=== PATIENT | female | born 1940 | race Hispanic/Latino ===

== ENCOUNTER 2017-04-19 08:45 | Inpatient (IN) | payer MEDICARE ==
[2017-04-19 08:47] VITALS: BMI 21.4
[2017-04-19] MEDS ORDERED: Sodium Chloride 0.9% 1,000 ML IV STA (09:10)
[2017-04-19] MEDS ORDERED: Aspirin 325 mg EC Tablets PO STA (09:11)
--- NOTE | 2017-04-19 09:16 | ED PDOC ---
Arrival/HPI - General Chief Complaint: Shortness Of Breath Time Seen by Provider: 04/19/17 09:02 Historian: Patient - History of Present Illness Narrative History of Present Illness (Text): 04/19/17 09:13 77 y/o female, pmh including htn/mild LVH and mild Mitral regurgitation (echo), allergic to codeine and sulfa medication, c/o shortness of breath x 1 week. Pt. been having shortness of breath and difficulty catching breath started this week, seen by the PMD Dr. Baker today and refer to the ER for evaluation, no chest pain, no numbness or tingling, no palpitation, no change in vision, no other medical or psychological complaints. Past Medical History - Provider Review Nursing Documentation Reviewed: Yes - Infectious Disease Hx of Infectious Diseases: None - Cardiac Hx Hypertension: Yes - Psychiatric Hx Substance Use: No - Anesthesia Hx Anesthesia Reactions: No Hx Malignant Hyperthermia: No Family/Social History - Physician Review Nursing Documentation Reviewed: Yes Family/Social History: Unknown Family HX Smoking Status: Former Smoker Hx Alcohol Use: Yes Frequency of alcohol use: Socially Hx Substance Use: No Allergies/Home Meds Allergies/Adverse Reactions: Allergies codeine Allergy (Verified 04/19/17 08:52) RASH Sulfa (Sulfonamide Antibiotics) Allergy (Verified 04/19/17 08:52) RASH Home Medications: Home Meds Medication Instructions Recorded Confirmed Aspirin [Aspirin Chewable] 81 mg PO DAILY 04/19/17 04/19/17 Losartan [Cozaar] 50 mg PO DAILY 04/19/17 04/19/17 diltiaZEM CD [Cardizem CD] 240 mg PO DAILY 04/19/17 04/19/17 Review of Systems - Review of Systems Constitutional: absent: Fatigue, Fevers Eyes: absent: Vision Changes ENT: absent: Hearing Changes Respiratory: SOB. absent: Cough, Sputum, Wheezing Cardiovascular: absent: Chest Pain, Palpitations Gastrointestinal: absent: Abdominal Pain, Nausea, Vomiting Musculoskeletal: absent: Arthralgias, Back Pain, Neck Pain Skin: absent: Rash, Pruritis, Skin Lesions, Laceration Neurological: absent: Headache, Dizziness, Focal Weakness Physical Exam Vital Signs Temp Pulse Pulse Resp BP Pulse Ox 04/19/17 13:25 97.5 F L 92 H 92 H 16 125/84 04/19/17 12:00 100 H 17 152/80 H 96 04/19/17 10:02 92 H 16 125/84 96 04/19/17 09:25 156 H 126/93 H 04/19/17 09:00 18 04/19/17 08:46 97.5 F L 143 H 20 126/93 H 95 Temperature: Afebrile Blood Pressure: Hypertensive Pulse: Tachycardic Respiratory Rate: Normal Appearance: Positive for: Well-Appearing, Non-Toxic Pain Distress: None Mental Status: Positive for: Alert and Oriented X 3 - Systems Exam Head: Present: Atraumatic, Normocephalic Pupils: Present: PERRL Extroacular Muscles: Present: EOMI Conjunctiva: Present: Normal Mouth: Present: Moist Mucous Membranes Neck: Present: Normal Range of Motion Respiratory/Chest: Present: Clear to Auscultation, Good Air Exchange. No: Respiratory Distress, Accessory Muscle Use Cardiovascular: Present: Normal S1, S2, Irregular Rhythm, Tachycardic, Other ( no pedal edema). No: Murmurs, Rub Abdomen: Present: Normal Bowel Sounds. No: Tenderness, Distention, Peritoneal Signs, Rebound, Guarding Back: Present: Normal Inspection Upper Extremity: Present: Normal Inspection. No: Cyanosis, Edema Lower Extremity: Present: Normal Inspection. No: Edema Neurological: Present: GCS=15, CN II-XII Intact, Speech Normal Skin: Present: Warm, Dry, Normal Color. No: Rashes Psychiatric: Present: Alert, Oriented x 3, Normal Insight, Normal Concentration Medical Decision Making ED Course and Treatment: 04/19/17 09:18 -labs/troponin -ekg/chest x-ray -IVF/cardizem/aspirin 325mg -cardiac rehabilitation specialist -will admit the patient to telemetry due to the new on set of a.fibb 04/19/17 10:47 -Initial EKG:Atrial Fibrillation @ 146 BPM, non-specific T wave changes on lead lateral leads, no ST elevation or depression, no previous ekg available for comparison. -2nd EKG: Atrial Fibrillation @ 93 BPM, non-specific T wave changes on lead lateral leads, no ST elevation or depression, -Chest x-ray show no active disease except vascular congestion with right greater than left. -Labs are non-significant with negative troponin but BNP 1510, IVF stopped, clinically there is no pedal edema, can be due to heart strain vs. early CHF? -PT/INR show no acute significant findings. Lovenox 1mg/kg 55mg SC ordered. -I discussed with the patient that she will need admission to the tele floor, discussed with Dr. Morse and he agreed that the patient needs admission to tele. 04/19/17 10:48 -UA pending -I discussed with the hospitalist Dr. Curry, discussed about the case/ treatment and admission to tele, she agreed to accept the patient and follow up the care. -Dr. Morse will put in the admission. - Critical Care Critical Care Minutes: 30 minutes Critical Care Time: Unstable Narrative Critical Care (Text): 04/19/17 09:19 Pt. come in with atrial fibrillation, shortness of breath. Pt. immediately obtain ekg/labs/IVF/cardizem, cardiac rehabilitation specialist continuously including observing the BP, calling hospitalist for admission to the telemetry, aspirin. - Lab Interpretations Lab Results: 04/19/17 09:27 04/19/17 09:50 Lab Results 04/19/17 09:50: Sodium 137, Potassium 3.9, Chloride 106, Carbon Dioxide 23, Anion Gap 12, BUN 13, Creatinine 0.7, Est GFR ( Amer) > 60, Est GFR (Non- Af Amer) > 60, Random Glucose 96, Calcium 9.1, Magnesium 2.1, Total Bilirubin 0.6, AST 23, ALT 41, Alkaline Phosphatase 76, Lactate Dehydrogenase 456, Total Creatine Kinase 30 L, Troponin I < 0.01, NT-Pro-B Natriuret Pep 1510 H, Total Protein 6.7, Albumin 3.9, Globulin 2.8, Albumin/Globulin Ratio 1.4, Triglycerides 117, Cholesterol 181, LDL Cholesterol Direct 76, HDL Cholesterol 89 H 04/19/17 09:27: WBC 6.5, RBC 4.05, Hgb 13.9, Hct 40.0, MCV 98.8, MCH 34.3, MCHC 34.8, RDW 15.6 H, Plt Count 322, MPV 12.3 H, Gran % 49.6 L, Lymph % (Auto) 38.6 H, Greene % (Auto) 8.2 H, Eos % (Auto) 2.8, Baso % (Auto) 0.8, Gran # 3.21, Lymph # 2.5, Greene # 0.5, Eos # 0.2, Baso # 0.05 I have reviewed the lab results: Yes Interpretation: Abnormal lab values (BNP 1510) - RAD Interpretation Radiology Orders: 04/19/17 09:10 CHEST PORTABLE [RAD] Stat vascular congestion with right greater than left. Die Maintenance: Radiologist - EKG Interpretation EKG Interpretation (Text): 04/19/17 09:19 Atrial Fibrillation @ 146 BPM, non-specific T wave changes on lead lateral leads , no ST elevation or depression, no previous ekg available for comparison. Interpreted by ED Physician: Yes Type: 12 lead EKG Comparison: No previous EKG avail. - Medication Orders Current Medication Orders: Aspirin (Aspirin Chewable) 81 mg PO DAILY [facility] Diltiazem HCl (Cardizem Cd) 240 mg PO DAILY [facility] Losartan Potassium (Cozaar) 50 mg PO DAILY [facility] Pantoprazole Sodium (Protonix Inj) 40 mg IVP DAILY [facility] Last Admin: 04/19/17 12:05 Dose: 40 mg Discontinued Medications Aspirin (Ecotrin) 325 mg PO STAT STA Stop: 04/19/17 09:12 Last Admin: 04/19/17 09:25 Dose: 325 mg Diltiazem HCl (Cardizem) 20 mg IVP STAT STA Stop: 04/19/17 09:11 Last Admin: 04/19/17 09:25 Dose: 20 mg Enoxaparin Sodium (Lovenox) 55 mg SC STAT STA PRN Reason: Protocol Stop: 04/19/17 10:26 Last Admin: 04/19/17 10:53 Dose: Enoxaparin Sodium (Lovenox) 55 mg SC STAT STA Stop: 04/19/17 10:30 Last Admin: 04/19/17 10:51 Dose: 55 mg Sodium Chloride (Sodium Chloride 0.9%) 1,000 mls @ 125 mls/hr IV .Q8H STA Stop: 04/19/17 17:09 Last Admin: 04/19/17 09:42 Dose: 125 mls/hr Pneumococcal Polyvalent Vaccine (Pneumovax 23 Vaccine) 0.5 ml IM .ONCE ONE Stop: 04/19/17 13:43 - PA / MACHINE STAKER / Resident Statement MD/DO has reviewed & agrees with the documentation as recorded. Disposition/Present on Arrival - Present on Arrival Any Indicators Present on Arrival: No History of DVT/PE: No History of Uncontrolled Diabetes: No Urinary Catheter: No History of Decub. Ulcer: No History Surgical Site Infection Following: None - Disposition Have Diagnosis and Disposition been Completed?: Yes Diagnosis: Atrial fibrillation, Elevated brain natriuretic peptide (BNP) level Disposition: HOSPITALIZED Disposition Time: 09:20 Patient Plan: Admission, Telemetry Patient Problems: Current Active Problems Problem Status Onset Atrial fibrillation Acute Elevated brain natriuretic peptide (BNP) level Acute Condition: STABLE
[2017-04-19 09:29] LABS: ADD MANUAL DIFF? NO
[2017-04-19 09:32] LABS: BASO # 0.05 K/mm3 (0.0-2.0); BASO % 0.8 % (0.0-3.0); EOS # 0.2 (0.0-0.7); EOS % 2.8 % (1.5-5.0); GRAN # 3.21 (1.4-6.5); GRAN % 49.6 % (50.0-68.0); LYMPH # 2.5 (1.2-3.4); LYMPH % 38.6 % (22.0-35.0); MEAN CELL VOLUME 98.8 fL (80.0-105.0); MEAN CORPUSCULAR HEMOGLOBIN 34.3 pg (25.0-35.0); MEAN CORPUSCULAR HGB CONC 34.8 g/dl (31.0-37.0); MEAN PLATELET VOLUME 12.3 fl (7.0-11.0); MONO # 0.5 (0.1-0.6); MONO % 8.2 % (1.0-6.0); PLATELET COUNT 322 10^3/uL (120.0-450.0); RED CELL DISTRIBUTION WIDTH 15.6 % (11.5-14.5); WHITE BLOOD COUNT 6.5 10^3/ul (4.5-11.0)
--- NOTE | 2017-04-19 09:47 | RAD ---
HISTORY: medical clearance COMPARISON: No prior. FINDINGS: LUNGS: No active pulmonary disease. PLEURA: No significant pleural effusion identified, no pneumothorax apparent. CARDIOVASCULAR: Mild vascular congestion and interstitial congestion right greater than left OSSEOUS STRUCTURES: No significant abnormalities. VISUALIZED UPPER ABDOMEN: Normal. OTHER FINDINGS: None. IMPRESSION: Mild vascular and interstitial congestion right greater than left
[2017-04-19] MEDS ORDERED: diltiaZEM IVPB 100mg in NS 100 ML IV PRN (09:57)
[2017-04-19] MEDS ORDERED: Enoxaparin 40 mg Syringe SC STA (10:25)
[2017-04-19 10:26] LABS: ALB/GLOB RATIO 1.4 (1.1-1.8); ALKALINE PHOSPHATASE 76 U/L (38-133); ALT/SGPT 41 U/L (7-56); AST/SGOT 23 U/L (15-39); BILIRUBIN,TOTAL 0.6 mg/dL (0.2-1.3); BLOOD UREA NITROGEN 13 mg/dL (7-21); CALCIUM 9.1 mg/dL (8.4-10.5); CARBON DIOXIDE 23 mmol/L (21-33); CHLORIDE 106 mmol/L (98-107); GFR AFRICAN-AMERICAN > 60; GLUCOSE,RANDOM 96 mg/dL (70-110); MAGNESIUM 2.1 mg/dL (1.7-2.2); POTASSIUM 3.9 mmol/L (3.6-5.0); SODIUM 137 mmol/L (132-148); TOTAL PROTEIN 6.7 g/dL (5.8-8.3)
[2017-04-19] MEDS ORDERED: Enoxaparin 60 mg Syringe SC STA (10:29)
[2017-04-19 10:38] LABS: TROPONIN I < 0.01 ng/mL
[2017-04-19 11:16] LABS: INR 1.06 (0.93-1.08); PARTIAL THROMBOPLASTIN TIME 24.5 Seconds (23.7-30.8)
[2017-04-19 11:57] LABS: CHOLESTEROL 181 mg/dL (130-200)
--- NOTE | 2017-04-19 12:49 | CP.PCM.HP ---
<Vipul Luong - Last Filed: 04/19/17 12:45> History of Present Illness - History of Present Illness History of Present Illness: This is a 77 yo female with past medical hx of PAD, HTN, HLD, PNA presenting with sob x 1 week. She cannot recall what she was doing when it started or if it came on suddenly or gradually. She has never had problems with sob before. She does mainly have sob with exertion and can only walk 1/2 block before sob. She does also have some orthopnea and will wake up in the morning with trouble breathing. She went to see Dr. Burns this morning who did an EKG and saw she was in rapid a fib at 150 and she was sent to this ER. She denies chest pain , vomiting, diarrhea, dysuria, hematuria, bloody BMs. PMH: HTN, HLD, PAD, pneumonia, uterine prolapse PSH: oopherectomy Allergies: codeine, sulfa Current meds: asa, cardizem, losartan FH: Lung cancer in family Social hx: Former smoker. Social drinker. No drug use. Born in . Lives alone in [place]. Does not use cane or walker. Present on Admission - Present on Admission Any Indicators Present on Admission: No History of DVT/PE: No History of Uncontrolled Diabetes: No Urinary Catheter: No Decubitus Ulcer Present: No Review of Systems - Review of Systems All systems: reviewed and no additional remarkable complaints except Review of Systems: Negative except per HPI. Past Patient History - Infectious Disease Hx of Infectious Diseases: None - Tetanus Immunizations Tetanus Immunization: Unknown - Past Medical History & Family History Past Medical History?: Yes Past Family History: Reviewed and not pertinent - Past Social History Smoking Status: Former Smoker Chewing Tobacco Use: No Cigar Use: No Alcohol: Social Drugs: Denies Home Situation {Lives}: Alone Domestic Violence: Negative - CARDIAC Hx Hypertension: Yes - PSYCHIATRIC Hx Substance Use: No - ANESTHESIA Hx Anesthesia Reactions: No Hx Malignant Hyperthermia: No Meds Allergies/Adverse Reactions: Allergies Allergy/AdvReac Type Severity Reaction Status Date / Time codeine Allergy RASH Verified 04/19/17 08:52 Sulfa (Sulfonamide Allergy RASH Verified 04/19/17 08:52 Antibiotics) Physical Exam - Constitutional Appears: Non-toxic, No Acute Distress - Head Exam Head Exam: ATRAUMATIC, NORMAL INSPECTION, NORMOCEPHALIC - Eye Exam Eye Exam: EOMI - ENT Exam ENT Exam: Mucous Membranes Moist - Neck Exam Neck exam: Positive for: Full Rom, Normal Inspection - Respiratory Exam Respiratory Exam: NORMAL BREATHING PATTERN. absent: Respiratory Distress - Cardiovascular Exam Cardiovascular Exam: Tachycardia, +S1, +S2 - GI/Abdominal Exam GI & Abdominal Exam: Normal Bowel Sounds, Soft. absent: Tenderness - Extremities Exam Extremities exam: Positive for: full ROM, normal inspection - Neurological Exam Neurological exam: Alert, CN II-XII Intact, Oriented x3 - Psychiatric Exam Psychiatric exam: Normal Affect, Normal Mood - Skin Skin Exam: Dry, Intact, Normal Color, Warm Results - Vital Signs Recent Vital Signs: Last Vital Signs Temp 97.5 F L 04/19/17 08:46 Pulse 100 H 04/19/17 12:00 Resp 17 04/19/17 12:00 BP 152/80 H 04/19/17 12:00 Pulse Ox 96 04/19/17 12:00 - Labs Result Diagrams: 04/19/17 09:27 04/19/17 09:50 Labs: Laboratory Results - last 24 hr 04/19/17 10:53 PT 11.4 INR 1.06 APTT 24.5 Assessment & Plan - Assessment and Plan (Free Text) Assessment: This is a 77 yo female with past medical hx of HTN, HLD, PAD, PNA presenting with sob x 1 week and found to be in rapid a fib 1. A fib -EKG initially showed rapid a fib -cardizem, asa, lovenox given in er -repeat ekg shows a fib rate controlled, rate in 90s -TSH -echo -trop neg x 1 , will trend -cardio consult. Dr. Carroll. recs appreciated. -f/u am labs -will most sepideh need anticoagulatio, defer to cardio at this time -continue cardizem daily -continue asa daily -CXR shows some vasc congestion -strict I/O -daily wt 2. Hx of HTN -continue losartan daily -continue cardizem daily 3. hx of HLD -lipid panel -HGB a 1 c 4. GI/DVT ppx -scds -protonix discussed with Dr. Villanueva <Eugene Villanueva - Last Filed: 04/19/17 17:00> Results - Vital Signs Recent Vital Signs: Last Vital Signs Temp 97.5 F L 04/19/17 13:25 Pulse 148 H 04/19/17 16:28 Resp 17 04/19/17 14:00 BP 140/88 04/19/17 16:28 Pulse Ox 98 04/19/17 14:00 - Labs Result Diagrams: 04/19/17 09:27 04/19/17 09:50 Labs: Laboratory Results - last 24 hr 04/19/17 10:53 PT 11.4 INR 1.06 APTT 24.5 Attending/Attestation - Attestation I have personally seen and examined this patient.: Yes I have fully participated in the care of the patient.: Yes I have reviewed all pertinent clinical information: Yes Notes (Text): 04/19/17 16:55 attending note; Patient seen and examined with the resident. This is a 77 year old female with the past medical history of PAD, HTN, HLD, PNA presenting with sob x 1 week. Patient was found to be in rapid A. fib in the ER. Heart rate controlled with IV Cardizem 1 dose. Continue by mouth Cardizem, Cozaar and aspirin. Started on Lovenox treatment dose. Patient needs long-term anticoagulation. chest x-ray showed mild vascular congestion. BNP is elevated. Lasix ordered. Patient wants to discuss with cardiology Dr. Mosley before adding or adjusting medications. Admit the patient to telemetry. Cardiac diet/monitor heart rate. echo requested. Upon discharge the patient will follow-up with PMD Dr. burns. 04/19/17 16:59
[2017-04-19] MEDS ORDERED: Pneumococcal 23-Valent Vaccine IM ONE (13:42)
[2017-04-19] MEDS: diltiaZEM IVPB 100mg in NS 100 ML IV PRN (16:28)
[2017-04-19] MEDS ORDERED: Enoxaparin 60 mg Syringe SC SCH (18:00)
[2017-04-19 18:40] LABS: PH,URINE 5.5 (4.7-8.0); URINE BILIRUBIN NEGATIVE (NEGATIVE); URINE BLOOD SMALL (NEGATIVE); URINE GLUCOSE (UA) NEGATIVE (NEGATIVE); URINE KETONE NEGATIVE (NEGATIVE); URINE LEUKOCYTE ESTERASE SMALL Leu/uL (NEGATIVE); URINE PROTEIN NEGATIVE mg/dL (<30 mg/dL); URINE UROBILINOGEN 0.2 E.U./dL (<1 E.U./dL)
[2017-04-19 18:47] LABS: URINE APPEARANCE SL CLOUDY (CLEAR); URINE COLOR YELLOW (YELLOW)
[2017-04-19 18:49] LABS: URINE BACTERIA MOD (NEG)
[2017-04-19] MEDS ORDERED: DiphenhydrAMINE 50 mg/ml Inj IVP STA (22:17)
[2017-04-20] MEDS: diltiaZEM IVPB 100mg in NS 100 ML IV PRN ×3 (00:51→20:58)
[2017-04-20 07:49] LABS: ADD MANUAL DIFF? NO
[2017-04-20 08:01] LABS: BASO # 0.05 K/mm3 (0.0-2.0); BASO % 0.9 % (0.0-3.0); EOS # 0.2 (0.0-0.7); EOS % 3.3 % (1.5-5.0); GRAN # 2.48 (1.4-6.5); GRAN % 45.9 % (50.0-68.0); HEMATOCRIT 35.8 % (36.0-48.0); LYMPH # 2.3 (1.2-3.4); LYMPH % 41.6 % (22.0-35.0); MEAN CELL VOLUME 100.6 fL (80.0-105.0); MEAN CORPUSCULAR HEMOGLOBIN 32.9 pg (25.0-35.0); MEAN CORPUSCULAR HGB CONC 32.7 g/dl (31.0-37.0); MEAN PLATELET VOLUME 11.2 fl (7.0-11.0); MONO # 0.5 (0.1-0.6); MONO % 8.3 % (1.0-6.0); PLATELET COUNT 244 10^3/uL (120.0-450.0); RED CELL DISTRIBUTION WIDTH 15.5 % (11.5-14.5); WHITE BLOOD COUNT 5.4 10^3/ul (4.5-11.0)
[2017-04-20 08:21] LABS: ALB/GLOB RATIO 1.3 (1.1-1.8); ALKALINE PHOSPHATASE 70 U/L (38-133); ALT/SGPT 42 U/L (7-56); AST/SGOT 31 U/L (15-39); BILIRUBIN,TOTAL 0.3 mg/dL (0.2-1.3); BLOOD UREA NITROGEN 14 mg/dL (7-21); CALCIUM 8.9 mg/dL (8.4-10.5); CARBON DIOXIDE 23 mmol/L (21-33); CHLORIDE 110 mmol/L (95-110); GFR AFRICAN-AMERICAN > 60; GLUCOSE,RANDOM 105 mg/dL (70-110); MAGNESIUM 2.2 mg/dL (1.7-2.2); PHOSPHOROUS 3.7 mg/dL (2.5-4.5); POTASSIUM 4.1 mmol/L (3.6-5.0); SODIUM 141 mmol/L (132-148)
[2017-04-20] MEDS: diltiaZEM 240 mg/24 Hours CD Cap PO SCH (10:49)
--- NOTE | 2017-04-20 12:43 | CP.PCM.PN ---
<Bret Garcia - Last Filed: 04/20/17 12:34> Subjective - Date & Time of Evaluation Date of Evaluation: 04/20/17 Time of Evaluation: 09:40 - Subjective Subjective: IM progress note: Pt seen and examined at bedside. No acute events overnight. Pt c/o chest tightness and wheezing. Denies any radiation of the pain. No palpitations or shortness of breath. Denies any alcazar, dizziness, f/c, abd pain, n/v/d. Objective - Vital Signs/Intake and Output Vital Signs (last 24 hours): Temp Pulse Resp BP Pulse Ox 97.5 F L 78 20 138/99 H 99 04/20/17 12:00 04/20/17 12:00 04/20/17 12:00 04/20/17 12:00 04/19/17 15:30 Intake and Output: 04/20/17 04/20/17 06:59 18:59 Intake Total 100 100 Output Total 400 Balance -300 100 - Medications Medications: Current Medications Apixaban (Eliquis) 5 mg PO BID [facility] PRN Reason: Protocol Last Admin: 04/20/17 10:48 Dose: 5 mg Aspirin (Aspirin Chewable) 81 mg PO DAILY [facility] Last Admin: 04/20/17 10:48 Dose: 81 mg Diltiazem HCl (Cardizem Cd) 240 mg PO DAILY [facility] Last Admin: 04/20/17 10:49 Dose: 240 mg Furosemide (Lasix) 40 mg PO DAILY [facility] Last Admin: 04/20/17 10:48 Dose: 40 mg diltiaZEM IVPB 100mg in NS (Cardizem 100mg In Ns) 100 mls @ 10 mls/hr IV .Q10H PRN; Protocol; 10 MG/HR PRN Reason: TITRATE PER MD ORDER Last Admin: 04/20/17 10:46 Dose: 10 mg/hr, 10 mls/hr Levalbuterol HCl (Xopenex) 0.63 mg IH [id number] [facility] Losartan Potassium (Cozaar) 50 mg PO DAILY [facility] Last Admin: 04/20/17 10:50 Dose: 50 mg Pantoprazole Sodium (Protonix Inj) 40 mg IVP DAILY [facility] Last Admin: 04/20/17 10:50 Dose: 40 mg - Labs Labs: 04/20/17 07:46 04/20/17 07:46 PT 11.4 Seconds (9.9-11.8) 04/19/17 10:53 INR 1.06 (0.93-1.08) 04/19/17 10:53 APTT 24.5 Seconds (23.7-30.8) 04/19/17 10:53 - Constitutional Appears: No Acute Distress - Head Exam Head Exam: ATRAUMATIC, NORMAL INSPECTION, NORMOCEPHALIC - Eye Exam Eye Exam: EOMI, Normal appearance, PERRL Pupil Exam: NORMAL ACCOMODATION, PERRL - ENT Exam ENT Exam: Mucous Membranes Moist, Normal Exam - Neck Exam Neck Exam: Full ROM, Normal Inspection. absent: Lymphadenopathy - Respiratory Exam Respiratory Exam: Clear to Ausculation Bilateral, Wheezes (b/l lung holland ), NORMAL BREATHING PATTERN - Cardiovascular Exam Cardiovascular Exam: REGULAR RHYTHM, RRR, +S1, +S2. absent: Murmur - GI/Abdominal Exam GI & Abdominal Exam: Soft, Normal Bowel Sounds. absent: Distended, Tenderness - Extremities Exam Extremities Exam: Full ROM, Normal Capillary Refill, Normal Inspection. absent : Joint Swelling, Pedal Edema - Back Exam Back Exam: NORMAL INSPECTION - Neurological Exam Neurological Exam: Alert, Awake, Oriented x3 - Psychiatric Exam Psychiatric exam: Normal Affect, Normal Mood - Skin Skin Exam: Dry, Intact, Normal Color, Warm Assessment and Plan - Assessment and Plan (Free Text) Assessment: 77 yo female with past medical hx of HTN, HLD, PAD, PNA presenting with sob x 1 week and found to be in rapid a fib. 1. A fib - Rate currently 110-135 -EKG initially showed rapid a fib -Cont cardizem drip currently at 10mg/hr and Cardizem 240mg PP daily -f/u echo read -trop neg x 3 -cardio consult. Dr. Carroll. recs appreciated. -Anticoagulated with Eliquis 5mg BID -continue asa 81mg daily -CXR shows some vasc congestion -strict I/O -daily weight 2. Hx of HTN -continue losartan daily, cardizem, lasix 40mg PO daily 3. hx of HLD -lipid panel -HGB a 1 c 4. Wheezing - Added Xopenex Q6H ronnie - Cont to monitor 4. GI/DVT ppx -Eiquis and protonix Case and plan was seen, reviewed and discussed in detail with Dr Vazquez. <Thomas Vazquez - Last Filed: 04/20/17 14:14> Objective - Vital Signs/Intake and Output Vital Signs (last 24 hours): Temp Pulse Resp BP Pulse Ox 97.5 F L 78 20 138/99 H 99 04/20/17 12:00 04/20/17 12:00 04/20/17 12:00 04/20/17 12:00 04/19/17 15:30 Intake and Output: 04/20/17 04/20/17 06:59 18:59 Intake Total 100 100 Output Total 400 Balance -300 100 - Medications Medications: Current Medications Apixaban (Eliquis) 5 mg PO BID [facility] PRN Reason: Protocol Last Admin: 04/20/17 10:48 Dose: 5 mg Aspirin (Aspirin Chewable) 81 mg PO DAILY [facility] Last Admin: 04/20/17 10:48 Dose: 81 mg Diltiazem HCl (Cardizem Cd) 240 mg PO DAILY [facility] Last Admin: 04/20/17 10:49 Dose: 240 mg Furosemide (Lasix) 40 mg PO DAILY [facility] Last Admin: 04/20/17 10:48 Dose: 40 mg diltiaZEM IVPB 100mg in NS (Cardizem 100mg In Ns) 100 mls @ 10 mls/hr IV .Q10H PRN; Protocol; 10 MG/HR PRN Reason: TITRATE PER MD ORDER Last Admin: 04/20/17 10:46 Dose: 10 mg/hr, 10 mls/hr Levalbuterol HCl (Xopenex) 0.63 mg IH [id number] [facility] Last Admin: 04/20/17 14:00 Dose: 0.63 mg Losartan Potassium (Cozaar) 50 mg PO DAILY [facility] Last Admin: 04/20/17 10:50 Dose: 50 mg Pantoprazole Sodium (Protonix Inj) 40 mg IVP DAILY [facility] Last Admin: 04/20/17 10:50 Dose: 40 mg - Labs Labs: 04/20/17 07:46 04/20/17 07:46 PT 11.4 Seconds (9.9-11.8) 04/19/17 10:53 INR 1.06 (0.93-1.08) 04/19/17 10:53 APTT 24.5 Seconds (23.7-30.8) 04/19/17 10:53 Attending/Attestation - Attestation I have personally seen and examined this patient.: Yes I have fully participated in the care of the patient.: Yes I have reviewed all pertinent clinical information, including history, physical exam and plan: Yes Notes (Text): 04/20/17 14:11 77 year old female with past medical history of hypertension who presented with complaint of shortness of breath. She was found to have Afib with RVR and started on cardizem drip. She was also started on anticoagulation with eliquis today by cardiology. Echocardiogram reviewed showed preserved EF with diastolic dysfunction. Probnp was elevated and cxr showed some vascular congestion. She is on lasix. Thomas Vazquez MD Hospitalist.
--- NOTE | 2017-04-20 12:49 | CARD ---
APPROVED REPORT EXAM: Two-dimensional and M-mode echocardiogram with Doppler and color Doppler. INDICATION Atrial Fibrillation 2D DIMENSIONS Left Atrium (2D)3.8 (1.6-4.0cm)IVSd1.1 (0.7-1.1cm) Aortic Root (2D)2.7 (2.0-3.7cm)LVDd4.5 (3.9-5.9cm) PWd1.1 (0.7-1.1cm)LVDs2.6 (2.5-4.0cm) FS (%) 43.0 %LVEF (%)74.3 (>50%) M-Mode DIMENSIONS Aortic Cusp Exc.1.10 (1.5-2.0cm) Mitral Valve MV E Mgfabnxv057.0cm/s TDI Lateral E' Peak V7.31cm/sMedial E' Peak V8.58cm/sE/Lateral E'18.5 E/Medial E'15.7 Pulmonary Valve PV Peak Hyutuowa011.0cm/sPV Peak Grad.5mmHg Tricuspid Valve TR Peak [id number] [id number] Peak Gr.27mmHg [id number] LEFT VENTRICLE The left ventricle is normal size. There is mild concentric left ventricular hypertrophy. The left ventricular function is normal. The left ventricular ejection fraction is within the normal range. There is normal LV segmental wall motion. Tissue Doppler imaging reveals moderate left ventricular diastolic dysfunction. RIGHT VENTRICLE The right ventricle is normal size. The right ventricular systolic function is normal. ATRIA The left atrium is borderline dilated. The right atrium size is normal. The interatrial septum is intact with no evidence for an atrial septal defect. AORTIC VALVE The aortic valve is mildly sclerotic. No aortic regurgitation is present. There is no aortic valvular stenosis. MITRAL VALVE The mitral valve is mildly thickened. Mitral regurgitation is moderate. TRICUSPID VALVE The tricuspid valve is normal in structure. There is mild tricuspid regurgitation. PULMONIC VALVE The pulmonary valve is normal in structure. GREAT VESSELS The aortic root is normal in size. The IVC is normal in size and collapses >50% with inspiration. PERICARDIAL EFFUSION There is no pleural effusion. There is no pericardial effusion. <Conclusion> Borderline LA enlargement. Normal LV size and systolic function. Mild concentric LVH. Moderate MR. Mild TR.
[2017-04-20] MEDS: Levalbuterol 0.63 MG/3 ML Inhal Soln UD IH SCH ×2 (14:00→20:20)
--- NOTE | 2017-04-20 14:56 | CON ---
DATE: 04/20/2017 REQUESTING PHYSICIAN: Dr. Villanueva. REASON FOR CONSULTATION: Atrial fibrillation. HISTORY OF PRESENT ILLNESS: This is a 77-year-old woman well known to me with a history of hypertens ion, longstanding tobacco abuse and peripheral arterial disease who was seen by Dr. Davon joy days ago with complaints of exertional dyspnea. She was noted to be in atrial fibrillation with ra pid ventricular response, but refused admission at that time. She eventually came to the Emergency R oom yesterday. She was still in atrial fibrillation with rapid rate and was started on intravenous C ardizem. She denies any chest pain, but continues to have some dyspnea. PAST MEDICAL HISTORY: Notable for the problems mentioned above. She has a history of hyperlipidemia , is very reluctant to take medications. She has undergone prior oophorectomy. She has a history of uterine prolapse and remote pneumonia. MEDICATIONS: At home included losartan, diltiazem and aspirin. ALLERGIES: SHE HAS HAD REACTIONS TO SULFAS AND CODEINE IN THE PAST. FAMILY HISTORY: Both parents are from age-related illness. SOCIAL HISTORY: She is a former smoker and drinks occasionally. She is retired. REVIEW OF SYSTEMS: A 10-point review of systems is otherwise unremarkable, notable mainly for the pr oblems mentioned above. PHYSICAL EXAMINATION: GENERAL: She is an elderly woman who appears comfortable at rest. VITAL SIGNS: Her blood pressure is 130/90 with a pulse of 100-120 in atrial fibrillation, respiratio ns are 16. She is currently afebrile. HEENT: Normocephalic, atraumatic. NECK: Supple, no JVD noted. CHEST: Bilateral scattered rhonchi. HEART: PMI displaced laterally with an irregularly irregular rhythm. ABDOMEN: Soft, nontender, normoactive bowel sounds. EXTREMITIES: No clubbing, cyanosis or edema. VASCULAR: Diminished pulses in both lower extremities. SKIN: Warm and dry. PSYCHIATRIC: Normal mood and affect. NEUROLOGIC: Alert and oriented x 3. No gross motor or sensory deficits appreciable. DIAGNOSTIC DATA: White count is 5.4, hemoglobin and hematocrit 11.7 and 35.8 with a platelet count o f 244,000. Potassium 4.1, BUN and creatinine are 14 and 0.9. Three sets of cardiac enzymes are norm al. BNP is 1510. Cholesterol is 181 with an HDL of 89, LDL of 76. TSH 4.0. PT, PTT are normal. C hest x-ray reveals a normal cardiac silhouette with increased perihilar markings. Electrocardiogram reveals atrial fibrillation with rapid ventricular response and secondary ST-T changes. IMPRESSION: 1. Recent onset atrial fibrillation likely secondary to hypertensive heart disease and age. Current ly with fair heart rate control despite intravenous diltiazem. 2. History of hypertension. 3. History of peripheral vascular disease. 4. Rest of problems as noted. RECOMMENDATIONS: Oral diltiazem will be resumed and low dose beta blockade added as well. Hopefully , intravenous diltiazem can be discontinued. She is currently on Lovenox and is an appropriate billy date for chronic anticoagulation. She has been extremely reluctant to take a multitude of medication s in the past as she feels that many have caused the side effects for her and she is also reluctant t o undergo testing, has refused stress testing many times over the years. The importance of anticoagu lation to reduce her risk of thromboembolic events and stroke was discussed in detail with her. It w as also advised that she have an echocardiogram performed at the very least, and consider stress test ing as well. Further recommendations will be made based upon her clinical course and response to the above interventions. Thank you for this consultation. Joey Carroll MD cc: [id number] TT: 04/20/2017 14:55:45 Confirmation # [id number] Dictation # [id number] denita
--- NOTE | 2017-04-20 16:10 | CARD ---
APPROVED REPORT EKG Measurement Heart [id number] <Conclusion> Atrial fibrillation with premature ventricular or aberrantly conducted complexes Right axis deviation Pulmonary disease pattern Nonspecific T wave abnormality, probably digitalis effect Prolonged QT Abnormal ECG
--- NOTE | 2017-04-20 16:12 | CARD ---
APPROVED REPORT EKG Measurement Heart [id number] <Conclusion> Atrial fibrillation with rapid ventricular response Low voltage QRS Nonspecific ST and T wave abnormality, probably digitalis effect Abnormal ECG
[2017-04-20] MEDS ORDERED: DiphenhydrAMINE 50 mg/ml Inj IVP STA (22:47)
[2017-04-21] MEDS: Levalbuterol 0.63 MG/3 ML Inhal Soln UD IH SCH ×4 (02:23→19:22)
[2017-04-21] MEDS: diltiaZEM IVPB 100mg in NS 100 ML IV PRN ×2 (06:11→17:50)
[2017-04-21] MEDS: diltiaZEM 240 mg/24 Hours CD Cap PO SCH (10:58)
--- NOTE | 2017-04-21 11:17 | CP.PCM.PN ---
<Vipul Luong - Last Filed: 04/21/17 11:17> Subjective - Date & Time of Evaluation Date of Evaluation: 04/21/17 Time of Evaluation: 11:15 - Subjective Subjective: Medicine progress note. Attending: Dr. Vazquez Pt seen/examined at bedside. No acute distress. No events overnight. Pt still on cardizem drip, started anticoagulation. Will f/u cardio w/u. No fevers, chills, syncope, vomiting, diarrhea. Objective - Vital Signs/Intake and Output Vital Signs (last 24 hours): Temp Pulse Resp BP Pulse Ox 98.2 F 117 H 18 133/92 H 93 L 04/21/17 06:00 04/21/17 10:58 04/21/17 06:00 04/21/17 10:58 04/21/17 06:00 Intake and Output: 04/21/17 04/21/17 06:59 18:59 Intake Total 200 780 Output Total 700 Balance 200 80 - Medications Medications: Current Medications Apixaban (Eliquis) 5 mg PO BID [facility] PRN Reason: Protocol Last Admin: 04/21/17 10:55 Dose: 5 mg Aspirin (Aspirin Chewable) 81 mg PO DAILY [facility] Last Admin: 04/21/17 10:55 Dose: 81 mg Diltiazem HCl (Cardizem Cd) 240 mg PO DAILY [facility] Last Admin: 04/21/17 10:58 Dose: 240 mg Furosemide (Lasix) 40 mg PO DAILY [facility] Last Admin: 04/21/17 10:56 Dose: 40 mg diltiaZEM IVPB 100mg in NS (Cardizem 100mg In Ns) 100 mls @ 10 mls/hr IV .Q10H PRN; Protocol; 10 MG/HR PRN Reason: TITRATE PER MD ORDER Last Admin: 04/21/17 06:11 Dose: 10 mg/hr, 10 mls/hr Levalbuterol HCl (Xopenex) 0.63 mg IH [id number] [facility] Last Admin: 04/21/17 08:10 Dose: 0.63 mg Losartan Potassium (Cozaar) 50 mg PO DAILY [facility] Last Admin: 04/21/17 10:55 Dose: 50 mg Metoprolol Tartrate (Lopressor) 50 mg PO BRKDIN [facility] Last Admin: 04/21/17 08:37 Dose: 50 mg Pantoprazole Sodium (Protonix Inj) 40 mg IVP DAILY [facility] Last Admin: 04/21/17 10:53 Dose: 40 mg - Labs Labs: 04/20/17 07:46 04/20/17 07:46 PT 11.4 Seconds (9.9-11.8) 04/19/17 10:53 INR 1.06 (0.93-1.08) 04/19/17 10:53 APTT 24.5 Seconds (23.7-30.8) 04/19/17 10:53 - Constitutional Appears: Non-toxic, No Acute Distress - Head Exam Head Exam: ATRAUMATIC, NORMAL INSPECTION, NORMOCEPHALIC - Eye Exam Eye Exam: EOMI - ENT Exam ENT Exam: Mucous Membranes Moist - Neck Exam Neck Exam: Full ROM, Normal Inspection - Respiratory Exam Respiratory Exam: NORMAL BREATHING PATTERN. absent: Respiratory Distress - Cardiovascular Exam Cardiovascular Exam: +S1, +S2 - GI/Abdominal Exam GI & Abdominal Exam: Soft, Normal Bowel Sounds. absent: Tenderness - Extremities Exam Extremities Exam: Full ROM, Normal Inspection - Neurological Exam Neurological Exam: Alert, Awake, Oriented x3 - Psychiatric Exam Psychiatric exam: Normal Affect, Normal Mood - Skin Skin Exam: Dry, Intact, Normal Color, Warm Assessment and Plan - Assessment and Plan (Free Text) Assessment: This is a 77 yo female with past medical hx of HTN, HLD, PAD, PNA presenting with sob x 1 week and found to be in rapid a fib. 1. A fib - Rate still tachy -EKG initially showed rapid a fib -Cont cardizem drip and PO cardizem -echo shows moderate MR, mild TR, borderline LA enlargement -trop neg x 3 -cardio consult. Dr. Carroll. recs appreciated. -Anticoagulated with Eliquis 5mg BID -continue asa 81mg daily -CXR shows some vasc congestion -strict I/O -daily weight -continue lasix 40 daily 2. Hx of HTN -continue losartan daily, cardizem, lasix 40mg PO daily 3. hx of HLD -lipid panel -HGB a 1 c 4. Wheezing - Added Xopenex Q6H ronnie - Cont to monitor 4. GI/DVT ppx -Eliquis and protonix Case and plan was seen, reviewed and discussed in detail with Dr Vazquez. <Taylor,Anwar A - Last Filed: 04/22/17 08:53> Objective - Vital Signs/Intake and Output Vital Signs (last 24 hours): Temp Pulse Resp BP Pulse Ox 97.7 F 139 H 20 141/107 H 94 L 04/22/17 06:00 04/22/17 07:58 04/22/17 06:00 04/22/17 07:58 04/22/17 06:00 Intake and Output: 04/22/17 04/22/17 06:59 18:59 Intake Total 200 Balance 200 - Medications Medications: Current Medications Apixaban (Eliquis) 5 mg PO BID [facility] PRN Reason: Protocol Last Admin: 04/21/17 17:53 Dose: 5 mg Aspirin (Aspirin Chewable) 81 mg PO DAILY [facility] Last Admin: 04/21/17 10:55 Dose: 81 mg Diltiazem HCl (Cardizem Cd) 240 mg PO DAILY [facility] Last Admin: 04/21/17 10:58 Dose: 240 mg Furosemide (Lasix) 40 mg PO DAILY [facility] Last Admin: 04/21/17 10:56 Dose: 40 mg Levalbuterol HCl (Xopenex) 0.63 mg IH [id number] [facility] Last Admin: 04/22/17 08:03 Dose: 0.63 mg Losartan Potassium (Cozaar) 50 mg PO DAILY [facility] Last Admin: 04/21/17 10:55 Dose: 50 mg Metoprolol Tartrate (Lopressor) 75 mg PO BRKDIN [facility] Pantoprazole Sodium (Protonix Ec Tab) 40 mg PO ACB [facility] Last Admin: 04/22/17 07:58 Dose: 40 mg - Labs Labs: 04/22/17 07:40 04/22/17 07:40 PT 11.4 Seconds (9.9-11.8) 04/19/17 10:53 INR 1.06 (0.93-1.08) 04/19/17 10:53 APTT 24.5 Seconds (23.7-30.8) 04/19/17 10:53 Attending/Attestation - Attestation I have personally seen and examined this patient.: Yes I have fully participated in the care of the patient.: Yes I have reviewed all pertinent clinical information, including history, physical exam and plan: Yes Notes (Text): 04/21/17 77 year old female with past medical history of hypertension who presented with complaint of shortness of breath. She was found to have Afib with RVR and started on cardizem drip. She is also on metoprolol which was increased today for better rate control. She is on eliquis for anticoagulation. Cardiology is following. Today she still reports dyspnea and cough. Repeat cxr still shows some congestion. Her echocardiogram showed preserved EF with diastolic dysfunction. Continue with lasix. Consider PT evaluation once she is off cardizem drip and HR is improved. Thomas Vazquez MD Hospitalist.
--- NOTE | 2017-04-21 11:20 | RAD ---
HISTORY: cough COMPARISON: Chest x-ray performed 04/19/17 TECHNIQUE: Chest PA and lateral FINDINGS: LUNGS: Left basilar atelectasis. Mild pulmonary venous congestion. Biapical pleural thickening. Please note that chest x-ray has limited sensitivity for the detection of pulmonary masses. PLEURA: No significant pleural effusion identified. No definite pneumothorax . CARDIOVASCULAR: Heart size appears top normal. Atherosclerotic calcification of the aortic knob. OSSEOUS STRUCTURES: Degenerative changes. VISUALIZED UPPER ABDOMEN: Elevation of the right hemidiaphragm. OTHER FINDINGS: None. IMPRESSION: Left basilar atelectasis. Mild pulmonary venous congestion.
--- NOTE | 2017-04-21 14:14 | PN ---
DATE: 04/21/2017 SUBJECTIVE: The patient is seen lying in bed on telemetry. She remains mildly dyspneic and continue s to have inadequate heart rate control in the setting of atrial fibrillation. She remains on intrav enous diltiazem. CURRENT MEDICATIONS: Include aspirin once daily, intravenous diltiazem, diltiazem 240 mg daily, losa rtan 50 mg daily, Eliquis 5 mg b.i.d., Lasix 40 mg daily, metoprolol 25 mg b.i.d., Xopenex. OBJECTIVE: GENERAL: She is an elderly woman who appears comfortable at the present time. VITAL SIGNS: Blood pressure is 130/80 with a pulse of 110-120 in atrial fibrillation, respirations a re 14. She is afebrile. HEENT: No JVD. CHEST: A few scattered rhonchi. HEART: PMI displaced laterally with an irregularly irregular rhythm. Systolic murmur is noted at th e apex. ABDOMEN: Soft, nontender with normoactive bowel sounds. EXTREMITIES: No edema. DIAGNOSTIC DATA: Echocardiogram revealed evidence of borderline left atrial enlargement, normal LV s ize and systolic function, mild concentric LVH, moderate mitral regurgitation, mild tricuspid regurgi tation. Morning blood work is pending. IMPRESSION: 1. Recently diagnosed atrial fibrillation with suboptimal heart rate control. 2. History of hypertension. 3. History of peripheral vascular disease. 4. Longstanding history of reluctance to undergo testing and take medication. RECOMMENDATIONS: Her beta cody dose will be increased at this time. Oral Eliquis will be continu ed as well. Diltiazem will be increased as needed for heart rate control. An eventual stress test i s recommended. Consideration could be given to attempted cardioversion in the near future if she rem ains symptomatic and heart rate is poorly controlled. We will continue to follow and make further re commendations as appropriate. Joey Carroll MD cc: [id number] TT: 04/21/2017 14:13:49 Confirmation # [id number] Dictation # [id number] ln
[2017-04-22] MEDS: Levalbuterol 0.63 MG/3 ML Inhal Soln UD IH SCH ×2 (02:42→08:03)
[2017-04-22] MEDS: Pantoprazole 40 mg EC Tab PO SCH (07:58)
[2017-04-22 08:01] LABS: ADD MANUAL DIFF? NO
[2017-04-22 08:02] LABS: BASO # 0.04 K/mm3 (0.0-2.0); BASO % 0.6 % (0.0-3.0); EOS # 0.2 (0.0-0.7); EOS % 3.2 % (1.5-5.0); GRAN # 3.78 (1.4-6.5); GRAN % 55.1 % (50.0-68.0); HEMATOCRIT 38.4 % (36.0-48.0); LYMPH # 2.3 (1.2-3.4); LYMPH % 32.9 % (22.0-35.0); MEAN CELL VOLUME 100.5 fL (80.0-105.0); MEAN CORPUSCULAR HEMOGLOBIN 33.2 pg (25.0-35.0); MEAN CORPUSCULAR HGB CONC 33.1 g/dl (31.0-37.0); MEAN PLATELET VOLUME 10.9 fl (7.0-11.0); MONO # 0.6 (0.1-0.6); MONO % 8.2 % (1.0-6.0); PLATELET COUNT 262 10^3/uL (120.0-450.0); RED CELL DISTRIBUTION WIDTH 15.4 % (11.5-14.5); WHITE BLOOD COUNT 6.9 10^3/ul (4.5-11.0)
--- NOTE | 2017-04-22 08:09 | CP.PCM.PN ---
Subjective - Date & Time of Evaluation Date of Evaluation: 04/22/17 Time of Evaluation: 07:00 - Subjective Subjective: Stable on 2R. No CP or SOB. V/S noted/ AF 90 - 100's PE: Lungs: clear Cor.: irreg, S1S2 Abd.: soft Ext.: no edema Neuro.: alert I/O= 2040/2800 Objective - Vital Signs/Intake and Output Vital Signs (last 24 hours): Temp Pulse Resp BP Pulse Ox 97.7 F 139 H 20 141/107 H 94 L 04/22/17 06:00 04/22/17 07:58 04/22/17 06:00 04/22/17 07:58 04/22/17 06:00 Intake and Output: 04/22/17 04/22/17 06:59 18:59 Intake Total 200 Balance 200 - Medications Medications: Current Medications Apixaban (Eliquis) 5 mg PO BID [facility] PRN Reason: Protocol Last Admin: 04/21/17 17:53 Dose: 5 mg Aspirin (Aspirin Chewable) 81 mg PO DAILY [facility] Last Admin: 04/21/17 10:55 Dose: 81 mg Diltiazem HCl (Cardizem Cd) 240 mg PO DAILY [facility] Last Admin: 04/21/17 10:58 Dose: 240 mg Furosemide (Lasix) 40 mg PO DAILY [facility] Last Admin: 04/21/17 10:56 Dose: 40 mg Levalbuterol HCl (Xopenex) 0.63 mg IH [id number] [facility] [place] Last Admin: 04/22/17 02:42 Dose: Not Given Losartan Potassium (Cozaar) 50 mg PO DAILY [facility] [place] Last Admin: 04/21/17 10:55 Dose: 50 mg Pantoprazole Sodium (Protonix Ec Tab) 40 mg PO ACB [facility] [place] Last Admin: 04/22/17 07:58 Dose: 40 mg - Labs Labs: 04/20/17 07:46 04/20/17 07:46 PT 11.4 Seconds (9.9-11.8) 04/19/17 10:53 INR 1.06 (0.93-1.08) 04/19/17 10:53 APTT 24.5 Seconds (23.7-30.8) 04/19/17 10:53 Assessment and Plan - Assessment and Plan (Free Text) Plan: Assessment: AF with RVR Dypnea HBP PAD Former Smoker HLD Pneumonia Uterine Prolapse Oophorectomy Echo: NL LV, Moderate MR and Mild TR. Plan: Rate control: Increase metoprolol to 75/day, continue PO diltiazem. A/C with Eliquis: if she will agree Nuclear stress test as out-pt. OOB as emily.
[2017-04-22 08:25] LABS: ALB/GLOB RATIO 1.3 (1.1-1.8); ALKALINE PHOSPHATASE 68 U/L (38-133); ALT/SGPT 54 U/L (7-56); AST/SGOT 48 U/L (15-39); BILIRUBIN,TOTAL 0.4 mg/dL (0.2-1.3); BLOOD UREA NITROGEN 15 mg/dL (7-21); CALCIUM 9.2 mg/dL (8.4-10.5); CARBON DIOXIDE 29 mmol/L (21-33); CHLORIDE 105 mmol/L (98-107); GFR AFRICAN-AMERICAN > 60; GLUCOSE,RANDOM 91 mg/dL (70-110); PHOSPHOROUS 3.8 mg/dL (2.5-4.5); POTASSIUM 3.6 mmol/L (3.6-5.0); SODIUM 141 mmol/L (132-148); TOTAL PROTEIN 6.3 g/dL (5.8-8.3)
[2017-04-22] MEDS: diltiaZEM 240 mg/24 Hours CD Cap PO SCH (09:00)
--- NOTE | 2017-04-22 12:10 | CP.PCM.PN ---
<Vipul Luong - Last Filed: 04/22/17 12:12> Subjective - Date & Time of Evaluation Date of Evaluation: 04/22/17 Time of Evaluation: 12:05 - Subjective Subjective: Med progress note. Attending: Dr. Vazquez Pt seen and examined at bedside. No acute distress. No events overnight, pt still tachy, off cardizem drip. Will monitor. No fevers, chills, vomiting, diarrhea. Objective - Vital Signs/Intake and Output Vital Signs (last 24 hours): Temp Pulse Resp BP Pulse Ox 98 F 100 H 19 147/94 H 94 L 04/22/17 11:58 04/22/17 11:58 04/22/17 11:58 04/22/17 11:58 04/22/17 06:00 Intake and Output: 04/22/17 04/22/17 06:59 18:59 Intake Total 200 Balance 200 - Medications Medications: Current Medications Apixaban (Eliquis) 5 mg PO BID [facility] PRN Reason: Protocol Last Admin: 04/22/17 09:00 Dose: 5 mg Aspirin (Aspirin Chewable) 81 mg PO DAILY [facility] Last Admin: 04/22/17 08:59 Dose: 81 mg Diltiazem HCl (Cardizem Cd) 240 mg PO DAILY [facility] Last Admin: 04/22/17 09:00 Dose: 240 mg Furosemide (Lasix) 40 mg PO DAILY [facility] Last Admin: 04/22/17 09:01 Dose: 40 mg Levalbuterol HCl (Xopenex) 0.63 mg IH [id number] [facility] Last Admin: 04/22/17 08:03 Dose: 0.63 mg Losartan Potassium (Cozaar) 50 mg PO DAILY [facility] Last Admin: 04/22/17 09:00 Dose: 50 mg Metoprolol Tartrate (Lopressor) 75 mg PO BRKDIN [facility] Pantoprazole Sodium (Protonix Ec Tab) 40 mg PO ACB [facility] Last Admin: 04/22/17 07:58 Dose: 40 mg - Labs Labs: 04/22/17 07:40 04/22/17 07:40 PT 11.4 Seconds (9.9-11.8) 04/19/17 10:53 INR 1.06 (0.93-1.08) 04/19/17 10:53 APTT 24.5 Seconds (23.7-30.8) 04/19/17 10:53 - Constitutional Appears: Non-toxic, No Acute Distress - Head Exam Head Exam: ATRAUMATIC, NORMAL INSPECTION, NORMOCEPHALIC - Eye Exam Eye Exam: EOMI - ENT Exam ENT Exam: Mucous Membranes Moist - Neck Exam Neck Exam: Full ROM, Normal Inspection - Respiratory Exam Respiratory Exam: NORMAL BREATHING PATTERN. absent: Respiratory Distress - Cardiovascular Exam Cardiovascular Exam: Tachycardia, +S1, +S2 - GI/Abdominal Exam GI & Abdominal Exam: Soft, Normal Bowel Sounds. absent: Tenderness - Extremities Exam Extremities Exam: Full ROM, Normal Inspection - Back Exam Back Exam: NORMAL INSPECTION - Neurological Exam Neurological Exam: Alert, Awake, Oriented x3 - Psychiatric Exam Psychiatric exam: Normal Affect, Normal Mood - Skin Skin Exam: Dry, Intact, Normal Color, Warm Assessment and Plan - Assessment and Plan (Free Text) Assessment: This is a 77 yo female with past medical hx of HTN, HLD, PAD, PNA presenting with sob x 1 week and found to be in rapid a fib. 1. A fib - Rate still tachy -EKG initially showed rapid a fib -Cont PO cardizem -echo shows moderate MR, mild TR, borderline LA enlargement -trop neg x 3 -cardio consult. Dr. Carroll. recs appreciated. -Anticoagulated with Eliquis 5mg BID -continue asa 81mg daily -CXR shows some vasc congestion -strict I/O -daily weight -continue lasix 40 daily 2. Hx of HTN -continue losartan daily, cardizem, lasix 40mg PO daily 3. hx of HLD -lipid panel -HGB a 1 c >>> 5.6 4. Wheezing - Added Xopenex Q6H ronnie >> will change to PRN - Cont to monitor 4. GI/DVT ppx -Eliquis and protonix Case and plan was seen, reviewed and discussed in detail with Dr Vazquez. <Thomas Vazquez - Last Filed: 04/22/17 17:03> Objective - Vital Signs/Intake and Output Vital Signs (last 24 hours): Temp Pulse Resp BP Pulse Ox 98 F 115 H 19 147/94 H 94 L 04/22/17 11:58 04/22/17 14:00 04/22/17 11:58 04/22/17 11:58 04/22/17 06:00 Intake and Output: 04/22/17 04/22/17 06:59 18:59 Intake Total 200 480 Output Total 600 Balance 200 -120 - Medications Medications: Current Medications Apixaban (Eliquis) 5 mg PO BID [facility] PRN Reason: Protocol Last Admin: 04/22/17 09:00 Dose: 5 mg Aspirin (Aspirin Chewable) 81 mg PO DAILY [facility] Last Admin: 04/22/17 08:59 Dose: 81 mg Diltiazem HCl (Cardizem Cd) 240 mg PO DAILY [facility] Last Admin: 04/22/17 09:00 Dose: 240 mg Furosemide (Lasix) 40 mg PO DAILY [facility] Last Admin: 04/22/17 09:01 Dose: 40 mg Levalbuterol HCl (Xopenex) 0.63 mg IH [id number] PRN PRN Reason: Wheezing Losartan Potassium (Cozaar) 50 mg PO DAILY [facility] Last Admin: 04/22/17 09:00 Dose: 50 mg Metoprolol Tartrate (Lopressor) 75 mg PO BRKDIN [facility] Pantoprazole Sodium (Protonix Ec Tab) 40 mg PO ACB [facility] Last Admin: 04/22/17 07:58 Dose: 40 mg - Labs Labs: 04/22/17 07:40 04/22/17 07:40 PT 11.4 Seconds (9.9-11.8) 04/19/17 10:53 INR 1.06 (0.93-1.08) 04/19/17 10:53 APTT 24.5 Seconds (23.7-30.8) 04/19/17 10:53 Attending/Attestation - Attestation I have personally seen and examined this patient.: Yes I have fully participated in the care of the patient.: Yes I have reviewed all pertinent clinical information, including history, physical exam and plan: Yes Notes (Text): 04/22/17 17:00 77 year old female with past medical history of hypertension who presented with complaint of shortness of breath. She was found to have Afib with RVR and started on cardizem drip. She is also on po cardizem and lopressor. Her HR improved earlier this morning and her cardizem drip was discontinued. Later in the morning her HR again increased to 100-130s. Her lopressor was increased by cardiology and she was given dose of xanax. She is on xopenex for mild wheezing which we will switch from ronnie to prn. She is on po lasix. Her cxr yesterday showed some congestion. Her echocardiogram showed preserved EF with diastolic dysfunction. Thomas Vazquez MD Hospitalist.
[2017-04-22] MEDS ORDERED: Levalbuterol 0.63 MG/3 ML Inhal Soln UD IH PRN (12:11)
[2017-04-23] MEDS: Pantoprazole 40 mg EC Tab PO SCH (06:35)
[2017-04-23 07:06] LABS: ADD MANUAL DIFF? NO
[2017-04-23 07:18] LABS: BASO # 0.06 K/mm3 (0.0-2.0); BASO % 0.9 % (0.0-3.0); EOS # 0.3 (0.0-0.7); EOS % 4.9 % (1.5-5.0); GRAN # 3.17 (1.4-6.5); GRAN % 45.5 % (50.0-68.0); HEMATOCRIT 41.1 % (36.0-48.0); LYMPH # 2.8 (1.2-3.4); LYMPH % 40.7 % (22.0-35.0); MEAN CORPUSCULAR HEMOGLOBIN 33.1 pg (25.0-35.0); MEAN CORPUSCULAR HGB CONC 33.1 g/dl (31.0-37.0); MEAN PLATELET VOLUME 11.3 fl (7.0-11.0); MONO # 0.6 (0.1-0.6); PLATELET COUNT 273 10^3/uL (120.0-450.0)
[2017-04-23 07:29] LABS: ALB/GLOB RATIO 1.3 (1.1-1.8); ALKALINE PHOSPHATASE 75 U/L (38-133); ALT/SGPT 58 U/L (7-56); AST/SGOT 62 U/L (15-39); BILIRUBIN,TOTAL 0.4 mg/dL (0.2-1.3); BLOOD UREA NITROGEN 18 mg/dL (7-21); CARBON DIOXIDE 25 mmol/L (21-33); CHLORIDE 104 mmol/L (95-110); GFR AFRICAN-AMERICAN > 60; GLUCOSE,RANDOM 95 mg/dL (70-110); MAGNESIUM 1.9 mg/dL (1.7-2.2); PHOSPHOROUS 3.8 mg/dL (2.5-4.5); POTASSIUM 3.5 mmol/L (3.6-5.0); SODIUM 139 mmol/L (132-148); TOTAL PROTEIN 6.6 g/dL (5.8-8.3)
[2017-04-23] MEDS ORDERED: Potassium Chloride 40 mEq/30 ml LIQ UD PO ONE (07:49)
--- NOTE | 2017-04-23 08:15 | CP.PCM.PN ---
Subjective - Date & Time of Evaluation Date of Evaluation: 04/23/17 Time of Evaluation: 07:00 - Subjective Subjective: Stable on 2R. No CP or SOB. + weak, sore throat, anxious.. V/S noted/ AF 68 - 120's PE: Lungs: clear Cor.: irreg, S1S2 Abd.: soft Ext.: no edema Neuro.: alert I/O= 600/1000 Labs noted: K+= 3.5 Objective - Vital Signs/Intake and Output Vital Signs (last 24 hours): Temp Pulse Resp BP Pulse Ox 97.8 F 125 H 20 140/78 93 L 04/23/17 06:00 04/23/17 06:35 04/23/17 06:00 04/23/17 06:35 04/23/17 06:00 Intake and Output: 04/23/17 04/23/17 06:59 18:59 Intake Total 120 Output Total 400 Balance -280 - Medications Medications: Current Medications Apixaban (Eliquis) 5 mg PO BID [facility] PRN Reason: Protocol Last Admin: 04/22/17 17:09 Dose: 5 mg Aspirin (Aspirin Chewable) 81 mg PO DAILY [facility] Last Admin: 04/22/17 08:59 Dose: 81 mg Diltiazem HCl (Cardizem Cd) 240 mg PO DAILY [facility] Last Admin: 04/22/17 09:00 Dose: 240 mg Furosemide (Lasix) 40 mg PO DAILY [facility] Last Admin: 04/22/17 09:01 Dose: 40 mg Levalbuterol HCl (Xopenex) 0.63 mg IH [id number] PRN PRN Reason: Wheezing Losartan Potassium (Cozaar) 50 mg PO DAILY [facility] Last Admin: 04/22/17 09:00 Dose: 50 mg Metoprolol Tartrate (Lopressor) 100 mg PO BRKDIN [facility] Pantoprazole Sodium (Protonix Ec Tab) 40 mg PO ACB [facility] Last Admin: 04/23/17 06:35 Dose: 40 mg - Labs Labs: 04/23/17 06:30 04/23/17 06:30 PT 11.4 Seconds (9.9-11.8) 04/19/17 10:53 INR 1.06 (0.93-1.08) 04/19/17 10:53 APTT 24.5 Seconds (23.7-30.8) 04/19/17 10:53 Assessment and Plan - Assessment and Plan (Free Text) Assessment: AF with RVR Dyspnea HBP PAD Former Smoker HLD Pneumonia Uterine Prolapse Oophorectomy Echo: NL LV, Moderate MR and Mild TR. Plan: Rate control: Increase metoprolol to 100/day, continue PO diltiazem. A/C with Eliquis: if she will agree Nuclear stress test as out-pt. OOB as emily./PT
[2017-04-23] MEDS ORDERED: Potassium Chloride 10 mEq ER Tab PO ONE (08:30)
[2017-04-23] MEDS: diltiaZEM 240 mg/24 Hours CD Cap PO SCH (10:09)
--- NOTE | 2017-04-23 12:01 | CP.PCM.PN ---
<Vipul Luong - Last Filed: 04/23/17 12:01> Subjective - Date & Time of Evaluation Date of Evaluation: 04/23/17 Time of Evaluation: 12:00 - Subjective Subjective: Med progress note. Attending: Dr. Vazquez Pt seen and examined at bedside. No acute distress. No events overnight. HR still tachy, increasing lopressor. No fevers, chills, vomiting, diarrhea. Objective - Vital Signs/Intake and Output Vital Signs (last 24 hours): Temp Pulse Resp BP Pulse Ox 97.7 F 55 L 18 116/73 93 L 04/23/17 11:55 04/23/17 11:55 04/23/17 11:55 04/23/17 11:55 04/23/17 06:00 Intake and Output: 04/23/17 04/23/17 06:59 18:59 Intake Total 120 Output Total 400 Balance -280 - Medications Medications: Current Medications Apixaban (Eliquis) 5 mg PO BID [facility] PRN Reason: Protocol Last Admin: 04/23/17 10:07 Dose: 5 mg Aspirin (Aspirin Chewable) 81 mg PO DAILY [facility] Last Admin: 04/23/17 10:06 Dose: 81 mg Diltiazem HCl (Cardizem Cd) 240 mg PO DAILY [facility] Last Admin: 04/23/17 10:09 Dose: 240 mg Furosemide (Lasix) 40 mg PO DAILY [facility] Last Admin: 04/23/17 10:10 Dose: 40 mg Levalbuterol HCl (Xopenex) 0.63 mg IH [id number] PRN PRN Reason: Wheezing Losartan Potassium (Cozaar) 50 mg PO DAILY [facility] Last Admin: 04/23/17 10:13 Dose: 50 mg Metoprolol Tartrate (Lopressor) 100 mg PO BRKDIN [facility] Last Admin: 04/23/17 11:13 Dose: Not Given Pantoprazole Sodium (Protonix Ec Tab) 40 mg PO ACB [facility] Last Admin: 04/23/17 06:35 Dose: 40 mg - Labs Labs: 04/23/17 06:30 04/23/17 06:30 PT 11.4 Seconds (9.9-11.8) 04/19/17 10:53 INR 1.06 (0.93-1.08) 04/19/17 10:53 APTT 24.5 Seconds (23.7-30.8) 04/19/17 10:53 - Constitutional Appears: Non-toxic, No Acute Distress - Head Exam Head Exam: ATRAUMATIC, NORMAL INSPECTION, NORMOCEPHALIC - Eye Exam Eye Exam: EOMI - ENT Exam ENT Exam: Mucous Membranes Moist - Neck Exam Neck Exam: Full ROM, Normal Inspection - Respiratory Exam Respiratory Exam: NORMAL BREATHING PATTERN. absent: Respiratory Distress - Cardiovascular Exam Cardiovascular Exam: Tachycardia, +S1, +S2 - GI/Abdominal Exam GI & Abdominal Exam: Soft, Normal Bowel Sounds. absent: Tenderness - Extremities Exam Extremities Exam: Full ROM, Normal Inspection - Back Exam Back Exam: NORMAL INSPECTION - Neurological Exam Neurological Exam: Alert, Awake, CN II-XII Intact, Oriented x3 - Psychiatric Exam Psychiatric exam: Normal Affect, Normal Mood - Skin Skin Exam: Dry, Intact, Normal Color, Warm Assessment and Plan - Assessment and Plan (Free Text) Assessment: This is a 77 yo female with past medical hx of HTN, HLD, PAD, PNA presenting with sob x 1 week and found to be in rapid a fib. 1. A fib - Rate still tachy -EKG initially showed rapid a fib -Cont PO cardizem -echo shows moderate MR, mild TR, borderline LA enlargement -trop neg x 3 -cardio consult. Dr. Carroll. recs appreciated. -Anticoagulated with Eliquis 5mg BID -continue asa 81mg daily -CXR shows some vasc congestion -strict I/O -daily weight -continue lasix 40 daily -continue lopressor 100 BRKDIN, increased from 75 2. Hx of HTN -continue losartan daily, cardizem, lasix 40mg PO daily -continue lopressor 3. hx of HLD -lipid panel -HGB a 1 c >>> 5.6 4. Wheezing - Added Xopenex Q6H ronnie >> will change to PRN - Cont to monitor 4. GI/DVT ppx -Eliquis and protonix Case and plan was seen, reviewed and discussed in detail with Dr Vazquez. <Thomas Vazquez - Last Filed: 04/23/17 16:58> Objective - Vital Signs/Intake and Output Vital Signs (last 24 hours): Temp Pulse Resp BP Pulse Ox 97.7 F 55 L 18 116/73 93 L 04/23/17 11:55 04/23/17 11:55 04/23/17 11:55 04/23/17 11:55 04/23/17 06:00 Intake and Output: 04/23/17 04/23/17 06:59 18:59 Intake Total 120 480 Output Total 400 700 Balance -280 -220 - Medications Medications: Current Medications Apixaban (Eliquis) 5 mg PO BID [facility] PRN Reason: Protocol Last Admin: 04/23/17 10:07 Dose: 5 mg Aspirin (Aspirin Chewable) 81 mg PO DAILY [facility] Last Admin: 04/23/17 10:06 Dose: 81 mg Digoxin (Lanoxin) 0.125 mg PO 1400 [facility] Diltiazem HCl (Cardizem Cd) 240 mg PO DAILY [facility] Last Admin: 04/23/17 10:09 Dose: 240 mg Furosemide (Lasix) 40 mg PO DAILY [facility] Last Admin: 04/23/17 10:10 Dose: 40 mg Levalbuterol HCl (Xopenex) 0.63 mg IH [id number] PRN PRN Reason: Wheezing Losartan Potassium (Cozaar) 50 mg PO DAILY [facility] Last Admin: 04/23/17 10:13 Dose: 50 mg Metoprolol Tartrate (Lopressor) 100 mg PO BRKDIN [facility] Last Admin: 04/23/17 11:13 Dose: Not Given Pantoprazole Sodium (Protonix Ec Tab) 40 mg PO ACB [facility] Last Admin: 04/23/17 06:35 Dose: 40 mg - Labs Labs: 04/23/17 06:30 04/23/17 06:30 PT 11.4 Seconds (9.9-11.8) 04/19/17 10:53 INR 1.06 (0.93-1.08) 04/19/17 10:53 APTT 24.5 Seconds (23.7-30.8) 04/19/17 10:53 Attending/Attestation - Attestation I have personally seen and examined this patient.: Yes I have fully participated in the care of the patient.: Yes I have reviewed all pertinent clinical information, including history, physical exam and plan: Yes Notes (Text): 04/23/17 16:55 77 year old female with past medical history of hypertension who presented with complaint of shortness of breath. She was found to have Afib with RVR and started on cardizem drip which was later discontinued. She is now on cardizem and lopressor. HR is still ranging 100-120 this morning and her lopressor was increased to 100 mg bid. Her cxrs have shown some congestion. Her echocardiogram showed preserved EF with diastolic dysfunction. She is on po lasix. She complained of sore throat yesterday, better today. She was offered lozengers or tylenol which she refused. PT evaluation was requested. Thomas Vazquez MD Hospitalist.
[2017-04-23] MEDS ORDERED: Potassium Chloride 20 mEq ER Tab PO ONE (13:00)
[2017-04-23] MEDS ORDERED: Digoxin 500 mcg/2ml (0.5 mg/2ml) Inj IV ONE (13:24)
[2017-04-24 08:15] LABS: ADD MANUAL DIFF? NO
[2017-04-24 08:24] LABS: BASO # 0.03 K/mm3 (0.0-2.0); BASO % 0.5 % (0.0-3.0); EOS # 0.3 (0.0-0.7); EOS % 4.2 % (1.5-5.0); GRAN # 3.95 (1.4-6.5); GRAN % 59.2 % (50.0-68.0); HEMATOCRIT 40.7 % (36.0-48.0); LYMPH # 1.8 (1.2-3.4); LYMPH % 27.5 % (22.0-35.0); MEAN CORPUSCULAR HEMOGLOBIN 32.6 pg (25.0-35.0); MEAN CORPUSCULAR HGB CONC 32.9 g/dl (31.0-37.0); MEAN PLATELET VOLUME 11.2 fl (7.0-11.0); MONO # 0.6 (0.1-0.6); MONO % 8.6 % (1.0-6.0); PLATELET COUNT 271 10^3/uL (120.0-450.0); RED CELL DISTRIBUTION WIDTH 14.5 % (11.5-14.5); WHITE BLOOD COUNT 6.7 10^3/ul (4.5-11.0)
[2017-04-24 08:30] LABS: ALB/GLOB RATIO 1.3 (1.1-1.8); ALKALINE PHOSPHATASE 72 U/L (38-133); ALT/SGPT 64 U/L (7-56); AST/SGOT 51 U/L (15-39); BILIRUBIN,TOTAL 0.5 mg/dL (0.2-1.3); BLOOD UREA NITROGEN 18 mg/dL (7-21); CALCIUM 9.1 mg/dL (8.4-10.5); CARBON DIOXIDE 27 mmol/L (21-33); CHLORIDE 103 mmol/L (98-107); GFR AFRICAN-AMERICAN > 60; GLUCOSE,RANDOM 93 mg/dL (70-110); MAGNESIUM 1.9 mg/dL (1.7-2.2); PHOSPHOROUS 3.9 mg/dL (2.5-4.5); POTASSIUM 3.5 mmol/L (3.6-5.0); SODIUM 138 mmol/L (132-148); TOTAL PROTEIN 6.4 g/dL (5.8-8.3)
[2017-04-24] MEDS ORDERED: Potassium Chloride 20 mEq ER Tab PO ONE (09:02)
[2017-04-24] MEDS: diltiaZEM 240 mg/24 Hours CD Cap PO SCH (09:16)
[2017-04-24] MEDS: Pantoprazole 40 mg EC Tab PO SCH (09:19)
--- NOTE | 2017-04-24 10:58 | PN ---
DATE: 04/24/2017 SUBJECTIVE: The patient is seen sitting in bed on telemetry. Her heart rate remains suboptimally co ntrolled. She is unhappy with the amount of medications she is currently being prescribed and would like to be on less. She denies any dyspnea. CURRENT MEDICATIONS: Include aspirin, diltiazem 240 mg daily, Cozaar 50 mg daily, Eliquis 5 mg b.i.d ., digoxin 0.125 mg daily, Lasix 40 mg daily, metoprolol 100 mg b.i.d., Protonix 40 mg daily, Xopenex and Xanax p.r.n. OBJECTIVE: GENERAL: She is an elderly woman who appears comfortable at rest. VITAL SIGNS: Her blood pressure is 122/68 with a pulse of 110-120, respirations are 14. She is afeb rile. HEENT: No JVD. CHEST: A few scattered rhonchi heard. HEART: PMI displaced laterally with a systolic murmur noted at the apex. ABDOMEN: Soft, nontender, normoactive bowel sounds. EXTREMITIES: No edema. DIAGNOSTIC DATA: Potassium 3.5, BUN and creatinine are 18 and 0.7. White count 6.7, hemoglobin and hematocrit are 13.4 and 40.7 with a platelet count of 271,000. AST and ALT 51 and 64. IMPRESSION: 1. Persistent atrial fibrillation with difficult to control rate despite 3 agents. 2. History of hypertension. 3. Moderate mitral regurgitation. 4. Peripheral vascular disease. RECOMMENDATIONS: Additional digoxin will be given today for a full loading of 1 mg. The rest of her medications will continue unchanged. Aspirin can be discontinued at this time to reduce her risk of bleeding with concomitant Eliquis use. She is being evaluated for transitional care or subacute [facility] abilitation placement. We will continue to follow along and make further recommendations as appropri ate. Joey Carroll MD cc: [id number] TT: 04/24/2017 10:57:37 Confirmation # [id number] Dictation # [id number] en
--- NOTE | 2017-04-24 12:38 | CP.PCM.PN ---
<Vipul Luong - Last Filed: 04/24/17 12:39> Subjective - Date & Time of Evaluation Date of Evaluation: 04/24/17 Time of Evaluation: 12:35 - Subjective Subjective: Medicine progress note. Attending: Dr. Vazquez Pt seen and examined at bedside. No acute distress. Heart pause noted overnight. No intervention per cardio. No fevers, chills, vomiting, diarrhea. PT following. Objective - Vital Signs/Intake and Output Vital Signs (last 24 hours): Temp Pulse Resp BP Pulse Ox 97.3 F L 81 18 147/95 H 97 04/24/17 12:00 04/24/17 12:00 04/24/17 12:00 04/24/17 12:00 04/24/17 06:00 Intake and Output: 04/24/17 04/24/17 06:59 18:59 Intake Total 120 Output Total 500 300 Balance -380 -300 - Medications Medications: Current Medications Alprazolam (Xanax) 0.25 mg PO HS PRN; Protocol PRN Reason: Restlessness Stop: 04/30/17 23:01 Last Admin: 04/23/17 23:58 Dose: 0.25 mg Apixaban (Eliquis) 5 mg PO BID [facility] PRN Reason: Protocol Last Admin: 04/24/17 09:18 Dose: 5 mg Digoxin (Lanoxin) 0.25 mg PO Q6H [facility] Stop: 04/24/17 16:46 Digoxin (Lanoxin) 0.125 mg PO 1400 [facility] Diltiazem HCl (Cardizem Cd) 240 mg PO DAILY [facility] Last Admin: 04/24/17 09:16 Dose: 240 mg Furosemide (Lasix) 40 mg PO DAILY [facility] Last Admin: 04/24/17 09:18 Dose: 40 mg Levalbuterol HCl (Xopenex) 0.63 mg IH [id number] PRN PRN Reason: Wheezing Losartan Potassium (Cozaar) 50 mg PO DAILY [facility] Last Admin: 04/24/17 09:17 Dose: 50 mg Metoprolol Tartrate (Lopressor) 100 mg PO BRKDIN [facility] Last Admin: 04/24/17 09:18 Dose: 100 mg Pantoprazole Sodium (Protonix Ec Tab) 40 mg PO ACB [facility] Last Admin: 04/24/17 09:19 Dose: 40 mg - Labs Labs: 04/24/17 08:00 04/24/17 08:00 PT 11.4 Seconds (9.9-11.8) 04/19/17 10:53 INR 1.06 (0.93-1.08) 04/19/17 10:53 APTT 24.5 Seconds (23.7-30.8) 04/19/17 10:53 - Constitutional Appears: Non-toxic, No Acute Distress - Head Exam Head Exam: ATRAUMATIC, NORMAL INSPECTION, NORMOCEPHALIC - Eye Exam Eye Exam: EOMI - ENT Exam ENT Exam: Mucous Membranes Moist - Neck Exam Neck Exam: Full ROM, Normal Inspection - Respiratory Exam Respiratory Exam: NORMAL BREATHING PATTERN. absent: Respiratory Distress - Cardiovascular Exam Cardiovascular Exam: +S1, +S2 - GI/Abdominal Exam GI & Abdominal Exam: Soft, Normal Bowel Sounds. absent: Tenderness - Extremities Exam Extremities Exam: Full ROM, Normal Inspection - Back Exam Back Exam: NORMAL INSPECTION - Neurological Exam Neurological Exam: Alert, Awake, Oriented x3 - Psychiatric Exam Psychiatric exam: Normal Affect, Normal Mood - Skin Skin Exam: Dry, Intact, Normal Color, Warm Assessment and Plan - Assessment and Plan (Free Text) Assessment: This is a 77 yo female with past medical hx of HTN, HLD, PAD, PNA presenting with sob x 1 week and found to be in rapid a fib. 1. A fib - Rate trending down -EKG initially showed rapid a fib -Cont PO cardizem -echo shows moderate MR, mild TR, borderline LA enlargement -trop neg x 3 -cardio consult. Dr. Carroll. recs appreciated. -Anticoagulated with Eliquis 5mg BID -continue asa 81mg daily -CXR shows some vasc congestion -strict I/O -daily weight -continue lasix 40 daily -continue lopressor 100 BRKDIN, increased from 75 -digoxin added 2. Hx of HTN -continue losartan daily, cardizem, lasix 40mg PO daily -continue lopressor 3. hx of HLD -lipid panel -HGB a 1 c >>> 5.6 4. Wheezing - Added Xopenex Q6H ronnie >> will change to PRN - Cont to monitor 4. GI/DVT ppx -Eliquis and protonix -PT following, recommends TCU Case and plan was seen, reviewed and discussed in detail with Dr Vazquez. <Thomas Vazquez - Last Filed: 04/24/17 17:26> Objective - Vital Signs/Intake and Output Vital Signs (last 24 hours): Temp Pulse Resp BP Pulse Ox 97.3 F L 81 18 147/95 H 97 04/24/17 12:00 04/24/17 12:00 04/24/17 12:00 04/24/17 12:00 04/24/17 06:00 Intake and Output: 04/24/17 04/24/17 06:59 18:59 Intake Total 120 Output Total 500 300 Balance -380 -300 - Medications Medications: Current Medications Alprazolam (Xanax) 0.25 mg PO HS PRN; Protocol PRN Reason: Restlessness Stop: 04/30/17 23:01 Last Admin: 04/23/17 23:58 Dose: 0.25 mg Apixaban (Eliquis) 5 mg PO BID [facility] PRN Reason: Protocol Last Admin: 04/24/17 09:18 Dose: 5 mg Digoxin (Lanoxin) 0.125 mg PO 1400 [facility] Diltiazem HCl (Cardizem Cd) 240 mg PO DAILY [facility] Last Admin: 04/24/17 09:16 Dose: 240 mg Furosemide (Lasix) 40 mg PO DAILY [facility] Last Admin: 04/24/17 09:18 Dose: 40 mg Levalbuterol HCl (Xopenex) 0.63 mg IH [id number] PRN PRN Reason: Wheezing Losartan Potassium (Cozaar) 50 mg PO DAILY [facility] Last Admin: 04/24/17 09:17 Dose: 50 mg Metoprolol Tartrate (Lopressor) 100 mg PO BRKDIN [facility] Last Admin: 04/24/17 09:18 Dose: 100 mg Pantoprazole Sodium (Protonix Ec Tab) 40 mg PO ACB [facility] Last Admin: 04/24/17 09:19 Dose: 40 mg - Labs Labs: 04/24/17 08:00 04/24/17 08:00 PT 11.4 Seconds (9.9-11.8) 04/19/17 10:53 INR 1.06 (0.93-1.08) 04/19/17 10:53 APTT 24.5 Seconds (23.7-30.8) 04/19/17 10:53 Attending/Attestation - Attestation I have personally seen and examined this patient.: Yes I have fully participated in the care of the patient.: Yes I have reviewed all pertinent clinical information, including history, physical exam and plan: Yes Notes (Text): 04/24/17 17:24 77 year old female with past medical history of hypertension who presented with complaint of shortness of breath. She was found to have Afib with RVR and started on cardizem drip which was later discontinued. She is now on cardizem and lopressor. Digoxin was also added yesterday. HR is better today ranging from 100-110. Her cxrs have shown some congestion. Her echocardiogram showed preserved EF with diastolic dysfunction. She is on po lasix. PT evaluation was appreciated; recommended TCU. Cardiology recommended to monitor in telemetry unit for one more day. Thomas Vazquez MD Hospitalist.
[2017-04-24] MEDS: Digoxin 250 mcg (0.25 mg) Tab PO SCH ×2 (13:04→18:12)
[2017-04-24] MEDS ORDERED: Digoxin 125 mcg (0.125 mg) Tab PO SCH (14:00)
[2017-04-25 06:02] VITALS: O2SAT 97
[2017-04-25 07:14] LABS: ADD MANUAL DIFF? NO
[2017-04-25 07:27] LABS: BASO # 0.04 K/mm3 (0.0-2.0); BASO % 0.7 % (0.0-3.0); EOS # 0.2 (0.0-0.7); EOS % 3.9 % (1.5-5.0); GRAN # 3.29 (1.4-6.5); GRAN % 53.7 % (50.0-68.0); HEMATOCRIT 42.7 % (36.0-48.0); LYMPH # 2.1 (1.2-3.4); LYMPH % 33.7 % (22.0-35.0); MEAN CELL VOLUME 100.5 fL (80.0-105.0); MEAN CORPUSCULAR HEMOGLOBIN 32.7 pg (25.0-35.0); MEAN CORPUSCULAR HGB CONC 32.6 g/dl (31.0-37.0); MEAN PLATELET VOLUME 11.3 fl (7.0-11.0); MONO # 0.5 (0.1-0.6); PLATELET COUNT 290 10^3/uL (120.0-450.0); RED CELL DISTRIBUTION WIDTH 14.6 % (11.5-14.5); WHITE BLOOD COUNT 6.1 10^3/ul (4.5-11.0)
[2017-04-25 07:45] LABS: ALB/GLOB RATIO 1.3 (1.1-1.8); ALKALINE PHOSPHATASE 71 U/L (38-133); ALT/SGPT 56 U/L (7-56); AST/SGOT 41 U/L (15-39); BILIRUBIN,TOTAL 0.5 mg/dL (0.2-1.3); BLOOD UREA NITROGEN 18 mg/dL (7-21); CALCIUM 9.4 mg/dL (8.4-10.5); CARBON DIOXIDE 28 mmol/L (21-33); CHLORIDE 100 mmol/L (98-107); GFR AFRICAN-AMERICAN > 60; GLUCOSE,RANDOM 107 mg/dL (70-110); PHOSPHOROUS 3.5 mg/dL (2.5-4.5); POTASSIUM 4.1 mmol/L (3.6-5.0); SODIUM 137 mmol/L (132-148); TOTAL PROTEIN 6.8 g/dL (5.8-8.3)
--- NOTE | 2017-04-25 08:23 | CP.PCM.PN ---
Subjective - Date & Time of Evaluation Date of Evaluation: 04/25/17 Time of Evaluation: 07:00 - Subjective Subjective: Stable on 2R. No CP or SOB. V/S noted/ AF 70 - 90's PE: Lungs: clear Cor.: irreg, S1S2 Abd.: soft Ext.: no edema Neuro.: alert Labs noted: K+= 4.0 Objective - Vital Signs/Intake and Output Vital Signs (last 24 hours): Temp Pulse Resp BP Pulse Ox 97.6 F 75 20 141/72 97 04/25/17 06:00 04/25/17 06:00 04/25/17 06:00 04/25/17 06:00 04/25/17 06:00 Intake and Output: 04/25/17 04/25/17 06:59 18:59 Intake Total 0 Output Total 400 Balance -400 - Medications Medications: Current Medications Alprazolam (Xanax) 0.25 mg PO HS PRN; Protocol PRN Reason: Restlessness Stop: 04/30/17 23:01 Last Admin: 04/24/17 23:22 Dose: 0.25 mg Apixaban (Eliquis) 5 mg PO BID [facility] PRN Reason: Protocol Last Admin: 04/24/17 18:13 Dose: 5 mg Digoxin (Lanoxin) 0.125 mg PO 1400 [facility] Diltiazem HCl (Cardizem Cd) 240 mg PO DAILY [facility] Last Admin: 04/24/17 09:16 Dose: 240 mg Furosemide (Lasix) 40 mg PO DAILY [facility] Last Admin: 04/24/17 09:18 Dose: 40 mg Levalbuterol HCl (Xopenex) 0.63 mg IH [id number] PRN PRN Reason: Wheezing Losartan Potassium (Cozaar) 50 mg PO DAILY [facility] Last Admin: 04/24/17 09:17 Dose: 50 mg Metoprolol Tartrate (Lopressor) 100 mg PO BRKDIN [facility] Last Admin: 04/24/17 18:12 Dose: 100 mg Pantoprazole Sodium (Protonix Ec Tab) 40 mg PO ACB [facility] Last Admin: 04/24/17 09:19 Dose: 40 mg - Labs Labs: 04/25/17 06:50 04/25/17 06:50 PT 11.4 Seconds (9.9-11.8) 04/19/17 10:53 INR 1.06 (0.93-1.08) 04/19/17 10:53 APTT 24.5 Seconds (23.7-30.8) 04/19/17 10:53 Assessment and Plan - Assessment and Plan (Free Text) Assessment: AF with RVR Dyspnea HBP PAD Former Smoker HLD Pneumonia Uterine Prolapse Oophorectomy Echo: NL LV, Moderate MR and Mild TR. Plan: Rate control: Continue dilt 240, metoprolol 100 BID and Digoxin 0.125 A/C with Eliquis. Nuclear stress test as out-pt. OOB as emily./PT
[2017-04-25] MEDS: Pantoprazole 40 mg EC Tab PO SCH (08:26)
[2017-04-25] MEDS ORDERED: Potassium Chloride 20 mEq ER Tab PO SCH (10:00)
[2017-04-25] MEDS: diltiaZEM 240 mg/24 Hours CD Cap PO SCH (10:20)
[2017-04-25 11:58] VITALS: RESP 16; TEMP 97.5
[2017-04-25 13:44] VITALS: PULSE 97
[2017-04-25] MEDS ORDERED: Digoxin 125 mcg (0.125 mg) Tab PO SCH (14:00)
--- NOTE | 2017-04-25 14:41 | CP.PCM.DIS ---
<Vipul Luong - Last Filed: 04/25/17 14:58> Provider - Provider Date of Admission: 04/19/17 10:46 Attending physician: Thomas Vazquez MD Primary care physician: Jovi Mays MD Consults: Consults Carly Time Spent in preparation of Discharge (in minutes): 45 Hospital Course - Lab Results Lab Results: Most Recent Lab Values WBC 6.1 10^3/ul (4.5-11.0) 04/25/17 06:50 RBC 4.25 10^6/uL (3.5-6.1) 04/25/17 06:50 Hgb 13.9 gm/dL (12.0-16.0) 04/25/17 06:50 Hct 42.7 % (36.0-48.0) 04/25/17 06:50 MCV 100.5 fL (80.0-105.0) 04/25/17 06:50 MCH 32.7 pg (25.0-35.0) 04/25/17 06:50 MCHC 32.6 g/dl (31.0-37.0) 04/25/17 06:50 RDW 14.6 % (11.5-14.5) H 04/25/17 06:50 Plt Count 290 10^3/uL (120.0-450.0) 04/25/17 06:50 MPV 11.3 fl (7.0-11.0) H 04/25/17 06:50 Gran % 53.7 % (50.0-68.0) 04/25/17 06:50 Lymph % (Auto) 33.7 % (22.0-35.0) 04/25/17 06:50 [place] % (Auto) 8.0 % (1.0-6.0) H 04/25/17 06:50 Eos % (Auto) 3.9 % (1.5-5.0) 04/25/17 06:50 Baso % (Auto) 0.7 % (0.0-3.0) 04/25/17 06:50 Gran # 3.29 (1.4-6.5) 04/25/17 06:50 Lymph # 2.1 (1.2-3.4) 04/25/17 06:50 [place] # 0.5 (0.1-0.6) 04/25/17 06:50 Eos # 0.2 (0.0-0.7) 04/25/17 06:50 Baso # 0.04 K/mm3 (0.0-2.0) 04/25/17 06:50 PT 11.4 Seconds (9.9-11.8) 04/19/17 10:53 INR 1.06 (0.93-1.08) 04/19/17 10:53 APTT 24.5 Seconds (23.7-30.8) 04/19/17 10:53 Sodium 137 mmol/L (132-148) 04/25/17 06:50 Potassium 4.1 mmol/L (3.6-5.0) 04/25/17 06:50 Chloride 100 mmol/L (98-107) 04/25/17 06:50 Carbon Dioxide 28 mmol/L (21-33) 04/25/17 06:50 Anion Gap 13 (10-20) 04/25/17 06:50 BUN 18 mg/dL (7-21) 04/25/17 06:50 Creatinine 0.7 mg/dL (0.5-1.4) 04/25/17 06:50 Est GFR ( Amer) > 60 04/25/17 06:50 Est GFR (Non-Af Amer) > 60 04/25/17 06:50 Random Glucose 107 mg/dL (70-110) 04/25/17 06:50 Hemoglobin A1c 5.6 % (4.2-6.5) 04/19/17 09:30 Calcium 9.4 mg/dL (8.4-10.5) 04/25/17 06:50 Phosphorus 3.5 mg/dL (2.5-4.5) 04/25/17 06:50 Magnesium 2.0 mg/dL (1.7-2.2) 04/25/17 06:50 Total Bilirubin 0.5 mg/dL (0.2-1.3) 04/25/17 06:50 AST 41 U/L (15-39) H 04/25/17 06:50 ALT 56 U/L (7-56) 04/25/17 06:50 Alkaline Phosphatase 71 U/L (38-133) 04/25/17 06:50 Lactate Dehydrogenase 456 U/L (333-699) 04/19/17 09:50 Total Creatine Kinase 30 U/L (35-230) L 04/19/17 09:50 Troponin I 0.02 ng/mL D 04/19/17 22:00 NT-Pro-B Natriuret Pep 1510 pg/mL (0-450) H 04/19/17 09:50 Total Protein 6.8 g/dL (5.8-8.3) 04/25/17 06:50 Albumin 3.8 g/dL (3.0-4.8) 04/25/17 06:50 Globulin 3.0 gm/dL 04/25/17 06:50 Albumin/Globulin Ratio 1.3 (1.1-1.8) 04/25/17 06:50 Triglycerides 117 mg/dL (35-160) 04/19/17 09:50 Cholesterol 181 mg/dL (130-200) 04/19/17 09:50 LDL Cholesterol Direct 76 mg/dL (0-129) 04/19/17 09:50 HDL Cholesterol 89 mg/dL (29-60) H 04/19/17 09:50 TSH 3rd Generation 4.00 mIU/mL (0.46-4.68) 04/19/17 15:40 Urine Color Yellow (YELLOW) 04/19/17 18:20 Urine Appearance Sl cloudy (CLEAR) 04/19/17 18:20 Urine pH 5.5 (4.7-8.0) 04/19/17 18:20 Ur Specific Tiline 1.010 (1.005-1.035) 04/19/17 18:20 Urine Protein Negative mg/dL (<30 mg/dL) 04/19/17 18:20 Urine Glucose (UA) Negative mg/dL (NEGATIVE) 04/19/17 18:20 Urine Ketones Negative mg/dL (NEGATIVE) 04/19/17 18:20 Urine Blood Small (NEGATIVE) H 04/19/17 18:20 Urine Nitrate Negative (NEGATIVE) 04/19/17 18:20 Urine Bilirubin Negative (NEGATIVE) 04/19/17 18:20 Urine Urobilinogen 0.2 E.U./dL (<1 E.U./dL) 04/19/17 18:20 Ur Leukocyte Esterase Small Luis Alfredo/uL (NEGATIVE) H 04/19/17 18:20 Urine RBC 2 - 5 /hpf (0-2) 04/19/17 18:20 Urine WBC 5 - 10 /hpf (0-6) 04/19/17 18:20 Ur Epithelial Cells 4 - 5 /hpf (0-5) 04/19/17 18:20 Urine Bacteria Mod (NEG) 04/19/17 18:20 - Hospital Course Hospital Course: Admit date - 04/19 DC date- Consults Carly Discharge dx 1. A fib 2. CHF 3. HLD 4. wheezing/SOB Procedures- none No complications DC to TCU HPI: see h/p Labs: see lab data Hospital course This is a 77 yo female with past medical hx of HTN, HLD, PAD, PNA presenting with sob x 1 week and found to be in rapid a fib. 1. A fib - Rate trending down -EKG initially showed rapid a fib -Cont PO cardizem -echo shows moderate MR, mild TR, borderline LA enlargement -trop neg x 3 -cardio consult. Dr. Carroll. recs appreciated. -Anticoagulated with Eliquis 5mg BID -continue asa 81mg daily>> discontinued -CXR shows some vasc congestion -strict I/O -daily weight -continue lasix 40 daily -continue lopressor 100 BRKDIN, increased from 75 -digoxin added 2. Hx of HTN -continue losartan daily, cardizem, lasix 40mg PO daily -continue lopressor 3. hx of HLD -lipid panel -HGB a 1 c >>> 5.6 4. Wheezing - Added Xopenex Q6H ronnie >> will change to PRN - Cont to monitor 4. GI/DVT ppx -Eliquis and protonix -PT following, recommends TCU>> pt discharged to TCU Case and plan was seen, reviewed and discussed in detail with Dr Vazquez. DC meds 1. xanax PRN 2. eliquis 5 mg po bid 3. losartan 50 mg po daily 4. digoxin .125 mg po daily 5. cardizem 240 daily 6. lopressor 100 brk dinner 7. lasix 40 mg po daily 8. xopenex prn 9. protonix DC instructions Please discharge to TCU. Please return if condition worsens. - Date & Time of H&P Date of H&P: 04/19/17 Time of H&P: 12:45 Discharge Exam - Head Exam Head Exam: ATRAUMATIC, NORMAL INSPECTION, NORMOCEPHALIC - Eye Exam Eye Exam: EOMI - ENT Exam ENT Exam: Mucous Membranes Moist - Neck Exam Neck exam: Full Rom, Normal Inspection - Respiratory Exam Respiratory Exam: UNREMARKABLE. absent: NORMAL BREATHING PATTERN - Cardiovascular Exam Cardiovascular Exam: +S1, +S2 - GI/Abdominal Exam GI & Abdominal Exam: Normal Bowel Sounds - Extremities Exam Extremities exam: full ROM, normal inspection - Neurological Exam Neurological exam: Alert, Oriented x3 - Psychiatric Exam Psychiatric exam: Normal Affect, Normal Mood - Skin Skin Exam: Dry, Intact, Normal Color, Warm Discharge Plan - Follow Up Plan Condition: STABLE Disposition: REHAB FACILITY/REHAB UNIT Referrals: Jovi Mays MD [Primary Care Provider] - <Thomas Vazquez - Last Filed: 04/25/17 17:10> Provider - Provider Date of Admission: 04/19/17 10:46 Attending physician: Thomas Vazquez MD Primary care physician: Jovi Mays MD Hospital Course - Lab Results Lab Results: Most Recent Lab Values WBC 6.1 10^3/ul (4.5-11.0) 04/25/17 06:50 RBC 4.25 10^6/uL (3.5-6.1) 04/25/17 06:50 Hgb 13.9 gm/dL (12.0-16.0) 04/25/17 06:50 Hct 42.7 % (36.0-48.0) 04/25/17 06:50 MCV 100.5 fL (80.0-105.0) 04/25/17 06:50 MCH 32.7 pg (25.0-35.0) 04/25/17 06:50 MCHC 32.6 g/dl (31.0-37.0) 04/25/17 06:50 RDW 14.6 % (11.5-14.5) H 04/25/17 06:50 Plt Count 290 10^3/uL (120.0-450.0) 04/25/17 06:50 MPV 11.3 fl (7.0-11.0) H 04/25/17 06:50 Gran % 53.7 % (50.0-68.0) 04/25/17 06:50 Lymph % (Auto) 33.7 % (22.0-35.0) 04/25/17 06:50 [place] % (Auto) 8.0 % (1.0-6.0) H 04/25/17 06:50 Eos % (Auto) 3.9 % (1.5-5.0) 04/25/17 06:50 Baso % (Auto) 0.7 % (0.0-3.0) 04/25/17 06:50 Gran # 3.29 (1.4-6.5) 04/25/17 06:50 Lymph # 2.1 (1.2-3.4) 04/25/17 06:50 [place] # 0.5 (0.1-0.6) 04/25/17 06:50 Eos # 0.2 (0.0-0.7) 04/25/17 06:50 Baso # 0.04 K/mm3 (0.0-2.0) 04/25/17 06:50 PT 11.4 Seconds (9.9-11.8) 04/19/17 10:53 INR 1.06 (0.93-1.08) 04/19/17 10:53 APTT 24.5 Seconds (23.7-30.8) 04/19/17 10:53 Sodium 137 mmol/L (132-148) 04/25/17 06:50 Potassium 4.1 mmol/L (3.6-5.0) 04/25/17 06:50 Chloride 100 mmol/L (98-107) 04/25/17 06:50 Carbon Dioxide 28 mmol/L (21-33) 04/25/17 06:50 Anion Gap 13 (10-20) 04/25/17 06:50 BUN 18 mg/dL (7-21) 04/25/17 06:50 Creatinine 0.7 mg/dL (0.5-1.4) 04/25/17 06:50 Est GFR ( Amer) > 60 04/25/17 06:50 Est GFR (Non-Af Amer) > 60 04/25/17 06:50 Random Glucose 107 mg/dL (70-110) 04/25/17 06:50 Hemoglobin A1c 5.6 % (4.2-6.5) 04/19/17 09:30 Calcium 9.4 mg/dL (8.4-10.5) 04/25/17 06:50 Phosphorus 3.5 mg/dL (2.5-4.5) 04/25/17 06:50 Magnesium 2.0 mg/dL (1.7-2.2) 04/25/17 06:50 Total Bilirubin 0.5 mg/dL (0.2-1.3) 04/25/17 06:50 AST 41 U/L (15-39) H 04/25/17 06:50 ALT 56 U/L (7-56) 04/25/17 06:50 Alkaline Phosphatase 71 U/L (38-133) 04/25/17 06:50 Lactate Dehydrogenase 456 U/L (333-699) 04/19/17 09:50 Total Creatine Kinase 30 U/L (35-230) L 04/19/17 09:50 Troponin I 0.02 ng/mL D 04/19/17 22:00 NT-Pro-B Natriuret Pep 1510 pg/mL (0-450) H 04/19/17 09:50 Total Protein 6.8 g/dL (5.8-8.3) 04/25/17 06:50 Albumin 3.8 g/dL (3.0-4.8) 04/25/17 06:50 Globulin 3.0 gm/dL 04/25/17 06:50 Albumin/Globulin Ratio 1.3 (1.1-1.8) 04/25/17 06:50 Triglycerides 117 mg/dL (35-160) 04/19/17 09:50 Cholesterol 181 mg/dL (130-200) 04/19/17 09:50 LDL Cholesterol Direct 76 mg/dL (0-129) 04/19/17 09:50 HDL Cholesterol 89 mg/dL (29-60) H 04/19/17 09:50 TSH 3rd Generation 4.00 mIU/mL (0.46-4.68) 04/19/17 15:40 Urine Color Yellow (YELLOW) 04/19/17 18:20 Urine Appearance Sl cloudy (CLEAR) 04/19/17 18:20 Urine pH 5.5 (4.7-8.0) 04/19/17 18:20 Ur Specific [place] 1.010 (1.005-1.035) 04/19/17 18:20 Urine Protein Negative mg/dL (<30 mg/dL) 04/19/17 18:20 Urine Glucose (UA) Negative mg/dL (NEGATIVE) 04/19/17 18:20 Urine Ketones Negative mg/dL (NEGATIVE) 04/19/17 18:20 Urine Blood Small (NEGATIVE) H 04/19/17 18:20 Urine Nitrate Negative (NEGATIVE) 04/19/17 18:20 Urine Bilirubin Negative (NEGATIVE) 04/19/17 18:20 Urine Urobilinogen 0.2 E.U./dL (<1 E.U./dL) 04/19/17 18:20 Ur Leukocyte Esterase Small [place] Alfred[place]/uL (NEGATIVE) H 04/19/17 18:20 Urine RBC 2 - 5 /hpf (0-2) 04/19/17 18:20 Urine WBC 5 - 10 /hpf (0-6) 04/19/17 18:20 Ur Epithelial Cells 4 - 5 /hpf (0-5) 04/19/17 18:20 Urine Bacteria Mod (NEG) 04/19/17 18:20 Attending/Attestation - Attestation I have personally seen and examined this patient.: Yes I have fully participated in the care of the patient.: Yes I have reviewed all pertinent clinical information, including history, physical exam and plan: Yes Notes (Text): 04/25/17 17:09 77 year old female with past medical history of hypertension who presented with complaint of shortness of breath. She was found to have Afib with RVR and started on cardizem drip which was later discontinued. She is now on cardizem, lopressor and digoxin. HR is better controlled today. Her cxrs have shown some congestion. Her echocardiogram showed preserved EF with diastolic dysfunction. She is on po lasix. Patient's symptoms have improved. She was seen by PT who recommended TCU. D/c to TCU if bed is available. Thomas Vazquez MD Hospitalist.
[2017-04-25 17:25] VITALS: BP 120/60
[2017-04-25 18:06] VITALS: PULSE 87
== END 2017-04-25 20:16 | DRG 309 ==
LOC: ED 08:45 → ERH 10:46 → 2RSO 15:31
PROVIDERS: ADMIT Internal Medicine; ATTEND Internal Medicine
DX: I48.1 Persistent atrial fibrillation (principal); I50.30 Unspecified diastolic (congestive) heart failure; I11.0 Hypertensive heart disease with heart failure; I34.0 Nonrheumatic mitral (valve) insufficiency; E78.5 Hyperlipidemia, unspecified; I73.9 Peripheral vascular disease, unspecified; N81.4 Uterovaginal prolapse, unspecified; R06.2 Wheezing; Z87.891 Personal history of nicotine dependence; Z79.82 Long term (current) use of aspirin

== ENCOUNTER 2017-04-25 20:15 | Inpatient (IN) | payer OTHER, MEDICARE ==
[2017-04-25 20:36] VITALS: BMI 20.3
[2017-04-25] MEDS ORDERED: Levalbuterol 0.63 MG/3 ML Inhal Soln UD IH PRN (20:38)
[2017-04-25] MEDS ORDERED: Pneumococcal 23-Valent Vaccine IM ONE (22:45)
[2017-04-25 22:46] VITALS: RESP 18
[2017-04-26] MEDS: Pantoprazole 40 mg EC Tab PO SCH (05:00)
[2017-04-26 06:52] LABS: ADD MANUAL DIFF? NO
[2017-04-26 07:06] LABS: BASO # 0.05 K/mm3 (0.0-2.0); BASO % 0.8 % (0.0-3.0); EOS # 0.2 (0.0-0.7); EOS % 2.7 % (1.5-5.0); GRAN # 3.82 (1.4-6.5); GRAN % 57.8 % (50.0-68.0); HEMATOCRIT 41.4 % (36.0-48.0); LYMPH # 1.9 (1.2-3.4); LYMPH % 28.5 % (22.0-35.0); MEAN CORPUSCULAR HEMOGLOBIN 32.8 pg (25.0-35.0); MEAN CORPUSCULAR HGB CONC 33.1 g/dl (31.0-37.0); MONO # 0.7 (0.1-0.6); MONO % 10.2 % (1.0-6.0); PLATELET COUNT 294 10^3/uL (120.0-450.0); RED CELL DISTRIBUTION WIDTH 14.2 % (11.5-14.5); WHITE BLOOD COUNT 6.6 10^3/ul (4.5-11.0)
[2017-04-26 07:33] LABS: ALB/GLOB RATIO 1.2 (1.1-1.8); ALKALINE PHOSPHATASE 71 U/L (38-133); ALT/SGPT 51 U/L (7-56); AST/SGOT 26 U/L (15-39); BILIRUBIN,TOTAL 0.4 mg/dL (0.2-1.3); BLOOD UREA NITROGEN 19 mg/dL (7-21); CALCIUM 9.2 mg/dL (8.4-10.5); CARBON DIOXIDE 30 mmol/L (21-33); CHLORIDE 98 mmol/L (98-107); GFR AFRICAN-AMERICAN > 60; GLUCOSE,RANDOM 95 mg/dL (70-110); PHOSPHOROUS 3.5 mg/dL (2.5-4.5); POTASSIUM 3.8 mmol/L (3.6-5.0); SODIUM 136 mmol/L (132-148); TOTAL PROTEIN 6.6 g/dL (5.8-8.3)
--- NOTE | 2017-04-26 08:13 | CP.PCM.PN ---
Subjective - Date & Time of Evaluation Date of Evaluation: 04/26/17 Time of Evaluation: 07:00 - Subjective Subjective: Stable in TCU. No CP or SOB V/S noted P = 60's PE: Lungs: clear Cor.: S1S2 Abd.: soft Ext.: no edema Neuro.: alert Labs noted Objective - Vital Signs/Intake and Output Vital Signs (last 24 hours): Temp Pulse Resp BP Pulse Ox 97.5 F L 65 18 130/79 96 04/26/17 06:00 04/26/17 06:00 04/26/17 06:00 04/26/17 06:00 04/26/17 06:00 - Medications Medications: Current Medications Alprazolam (Xanax) 0.25 mg PO HS PRN; Protocol PRN Reason: Restlessness Stop: 05/02/17 20:39 Last Admin: 04/25/17 23:01 Dose: 0.25 mg Apixaban (Eliquis) 5 mg PO BID [facility] PRN Reason: Protocol Digoxin (Lanoxin) 0.125 mg PO 1400 [facility] Diltiazem HCl (Cardizem Cd) 240 mg PO DAILY [facility] Furosemide (Lasix) 40 mg PO DAILY [facility] Levalbuterol HCl (Xopenex) 0.63 mg IH [id number] PRN PRN Reason: Wheezing Losartan Potassium (Cozaar) 50 mg PO DAILY [facility] Metoprolol Tartrate (Lopressor) 100 mg PO BRKDIN [facility] Pantoprazole Sodium (Protonix Ec Tab) 40 mg PO 0600 [facility] Last Admin: 04/26/17 05:00 Dose: 40 mg Potassium Chloride (K-Dur 20 Meq Er Tab) 20 meq PO DAILY [facility]IDRA - Labs Labs: 04/26/17 06:30 04/26/17 06:30 Assessment and Plan - Assessment and Plan (Free Text) Assessment: AF with RVR Dyspnea HBP Former Smoker HLD Pneumonia Uterine Prolapse, Oophorectomy Echo: Nl LV, Mod. MR and Mild TR Plan: Continue diltiazem, metoprolol and dig. Check dig. level OOB/PT/Rehab efforts.
[2017-04-26] MEDS ORDERED: Potassium Chloride 20 mEq ER Tab PO SCH (10:00)
--- NOTE | 2017-04-26 11:17 | CP.PCM.HP ---
<Vipul Luong - Last Filed: 04/26/17 11:22> History of Present Illness - History of Present Illness History of Present Illness: This is a 77 yo female with past medical hx of PAD, HTN, HLD, PNA presenting with sob x 1 week. She cannot recall what she was doing when it started or if it came on suddenly or gradually. She has never had problems with sob before. She does mainly have sob with exertion and can only walk 1/2 block before sob. She does also have some orthopnea and will wake up in the morning with trouble breathing. She went to see Dr. Mays this morning who did an EKG and saw she was in rapid a fib at 150 and she was sent to this ER. She denies chest pain , vomiting, diarrhea, dysuria, hematuria, bloody BMs. Pt was treated on medical floor and transferred to TCU for further rehab. PMH: HTN, HLD, PAD, pneumonia, uterine prolapse PSH: oopherectomy Allergies: codeine, sulfa Current meds: asa, cardizem, losartan FH: Lung cancer in family Social hx: Former smoker. Social drinker. No drug use. Born in . Lives alone in [place]. Does not use cane or walker. Present on Admission - Present on Admission Any Indicators Present on Admission: No History of DVT/PE: No History of Uncontrolled Diabetes: No Urinary Catheter: No Decubitus Ulcer Present: No Review of Systems - Review of Systems All systems: reviewed and no additional remarkable complaints except Review of Systems: Negative except for HPI Past Patient History - Infectious Disease Hx of Infectious Diseases: None - Tetanus Immunizations Tetanus Immunization: Unknown - Past Medical History & Family History Past Medical History?: Yes - Past Social History Smoking Status: Never Smoked Chewing Tobacco Use: No Cigar Use: No Alcohol: None Drugs: Denies Home Situation {Lives}: Alone - CARDIAC Hx Cardiac Disorders: Yes Hx Congestive Heart Failure: Yes Hx Hypertension: Yes - PULMONARY Hx Pneumonia: Yes ("many times") - HEENT Hx HEENT Problems: Yes (eyeglasses) - ENDOCRINE/METABOLIC Hx Endocrine Disorders: Yes (hyperparathyroid) - MUSCULOSKELETAL/RHEUMATOLOGICAL Hx Falls: No - GASTROINTESTINAL Hx Gastrointestinal Disorders: Yes (hx diverticulitis) - GENITOURINARY/GYNECOLOGICAL Hx Genitourinary Disorders: Yes (prolapsed bladder/frequency) Hx Reproductive Disorders: Yes (oopherectomy 1989) - PSYCHIATRIC Hx Substance Use: No - SURGICAL HISTORY Hx Surgeries: Yes (oopherectomy 1989) - ANESTHESIA Hx Anesthesia Reactions: No Hx Malignant Hyperthermia: No Meds Allergies/Adverse Reactions: Allergies Allergy/AdvReac Type Severity Reaction Status Date / Time codeine Allergy RASH Verified 04/19/17 08:52 Sulfa (Sulfonamide Allergy RASH Verified 04/19/17 08:52 Antibiotics) Physical Exam - Constitutional Appears: Non-toxic - Head Exam Head Exam: ATRAUMATIC, NORMAL INSPECTION, NORMOCEPHALIC - Eye Exam Eye Exam: EOMI - ENT Exam ENT Exam: Mucous Membranes Moist - Neck Exam Neck exam: Positive for: Full Rom - Respiratory Exam Respiratory Exam: NORMAL BREATHING PATTERN. absent: Respiratory Distress - Cardiovascular Exam Cardiovascular Exam: +S1, +S2 - GI/Abdominal Exam GI & Abdominal Exam: Normal Bowel Sounds, Soft. absent: Tenderness - Extremities Exam Extremities exam: Positive for: full ROM, normal inspection - Back Exam Back exam: NORMAL INSPECTION - Neurological Exam Neurological exam: Alert, Oriented x3 - Psychiatric Exam Psychiatric exam: Normal Affect, Normal Mood - Skin Skin Exam: Dry, Intact, Normal Color, Warm Results - Vital Signs Recent Vital Signs: Last Vital Signs Temp 98.0 F 04/26/17 08:00 Pulse 65 04/26/17 08:12 Resp 18 04/26/17 08:00 BP 130/79 04/26/17 10:00 Pulse Ox 96 04/26/17 06:00 - Labs Result Diagrams: 04/26/17 06:30 04/26/17 06:30 Labs: Laboratory Results - last 24 hr 04/26/17 04/26/17 06:30 06:30 WBC 6.6 RBC 4.18 Hgb 13.7 Hct 41.4 MCV 99.0 MCH 32.8 MCHC 33.1 RDW 14.2 Plt Count 294 MPV 11.0 Gran % 57.8 Lymph % (Auto) 28.5 [place] % (Auto) 10.2 H Eos % (Auto) 2.7 Baso % (Auto) 0.8 Gran # 3.82 Lymph # 1.9 [place] # 0.7 H Eos # 0.2 Baso # 0.05 Sodium 136 Potassium 3.8 Chloride 98 Carbon Dioxide 30 Anion Gap 12 BUN 19 Creatinine 0.8 Est GFR ( Amer) > 60 Est GFR (Non-Af Amer) > 60 Random Glucose 95 Calcium 9.2 Phosphorus 3.5 Magnesium 2.0 Total Bilirubin 0.4 AST 26 ALT 51 Alkaline Phosphatase 71 Total Protein 6.6 Albumin 3.6 Globulin 2.9 Albumin/Globulin Ratio 1.2 Assessment & Plan - Assessment and Plan (Free Text) Assessment: This is a 77 yo female with past medical hx of HTN, HLD, PAD, PNA presenting with sob x 1 week and found to be in rapid a fib. 1. A fib - Rate trending down -EKG initially showed rapid a fib -Cont PO cardizem -echo shows moderate MR, mild TR, borderline LA enlargement -trop neg x 3 -cardio consult. Dr. Carroll. recs appreciated. -Anticoagulated with Eliquis 5mg BID -continue asa 81mg daily>> discontinued -CXR shows some vasc congestion -strict I/O -daily weight -continue lasix 40 daily -continue lopressor 100 BRKDIN, increased from 75 -digoxin added 2. Hx of HTN -continue losartan daily, cardizem, lasix 40mg PO daily -continue lopressor 3. hx of HLD -lipid panel -HGB a 1 c >>> 5.6 4. Wheezing - Added Xopenex Q6H ronnie >> will change to PRN - Cont to monitor 4. GI/DVT ppx -Eliquis and protonix -PT following -further rehab in TCU Case and plan was seen, reviewed and discussed in detail with Dr Vazquez. <Thomas Vazquez - Last Filed: 04/27/17 07:56> Results - Vital Signs Recent Vital Signs: Last Vital Signs Temp 98.0 F 04/26/17 08:00 Pulse 90 04/26/17 11:46 Resp 18 04/26/17 08:00 BP 129/70 04/26/17 17:12 Pulse Ox 96 04/26/17 06:00 - Labs Result Diagrams: 04/26/17 06:30 04/26/17 06:30 Attending/Attestation - Attestation I have personally seen and examined this patient.: Yes I have fully participated in the care of the patient.: Yes I have reviewed all pertinent clinical information: Yes Notes (Text): 04/26/17 77 year old female with past medical history of hypertension who was admitted for new onset rapid afib. HR improved with metoprolol, cardizem and digoxin and patient was transferred to TCU for rehabilitation therapy. Continue with cardizem, metoprolol and digoxin. Continue with eliquis for anticoagulation. Cardiology is following the patient. She is also on po lasix for diastolic CHF. Continue with home medication for hypertension. Thomas Vazquez MD Hospitalist.
[2017-04-26] MEDS: diltiaZEM 240 mg/24 Hours CD Cap PO SCH (11:46)
[2017-04-26] MEDS ORDERED: Digoxin 125 mcg (0.125 mg) Tab PO SCH (14:00)
[2017-04-26 14:10] VITALS: PULSE 90
[2017-04-27] MEDS: Pantoprazole 40 mg EC Tab PO SCH (05:48)
[2017-04-27 07:44] LABS: ALB/GLOB RATIO 1.3 (1.1-1.8); ALKALINE PHOSPHATASE 76 U/L (38-133); ALT/SGPT 52 U/L (7-56); AST/SGOT 38 U/L (15-39); BILIRUBIN,TOTAL 0.4 mg/dL (0.2-1.3); BLOOD UREA NITROGEN 21 mg/dL (7-21); CALCIUM 9.5 mg/dL (8.4-10.5); CARBON DIOXIDE 29 mmol/L (21-33); CHLORIDE 100 mmol/L (95-110); GFR AFRICAN-AMERICAN > 60; GLUCOSE,RANDOM 99 mg/dL (70-110); MAGNESIUM 2.1 mg/dL (1.7-2.2); PHOSPHOROUS 3.7 mg/dL (2.5-4.5); SODIUM 137 mmol/L (132-148); TOTAL PROTEIN 6.7 g/dL (5.8-8.3)
--- NOTE | 2017-04-27 07:53 | CP.PCM.PN ---
Subjective - Date & Time of Evaluation Date of Evaluation: 04/27/17 Time of Evaluation: 07:00 - Subjective Subjective: Stable in TCU. No CP or SOB V/S noted P = 60's PE: Lungs: clear Cor.: S1S2 Abd.: soft Ext.: no edema Neuro.: alert Labs 04/26 noted Objective - Vital Signs/Intake and Output Vital Signs (last 24 hours): Temp Pulse Resp BP Pulse Ox 98.0 F 90 18 129/70 96 04/26/17 08:00 04/26/17 11:46 04/26/17 08:00 04/26/17 17:12 04/26/17 06:00 Intake and Output: 04/27/17 04/27/17 06:59 18:59 Intake Total 580 Balance 580 - Medications Medications: Current Medications Alprazolam (Xanax) 0.25 mg PO HS PRN; Protocol PRN Reason: Restlessness Stop: 05/02/17 20:39 Last Admin: 04/26/17 23:20 Dose: 0.25 mg Apixaban (Eliquis) 5 mg PO BID [facility] PRN Reason: Protocol Last Admin: 04/26/17 17:12 Dose: 5 mg Digoxin (Lanoxin) 0.125 mg PO 1400 [facility] Last Admin: 04/26/17 14:08 Dose: 0.125 mg Diltiazem HCl (Cardizem Cd) 240 mg PO DAILY [facility] Last Admin: 04/26/17 11:46 Dose: 240 mg Furosemide (Lasix) 40 mg PO DAILY [facility] Last Admin: 04/26/17 10:00 Dose: 40 mg Levalbuterol HCl (Xopenex) 0.63 mg IH [id number] PRN PRN Reason: Wheezing Losartan Potassium (Cozaar) 50 mg PO DAILY [facility] Last Admin: 04/26/17 09:59 Dose: 50 mg Metoprolol Tartrate (Lopressor) 100 mg PO BRKDIN [facility] Last Admin: 04/26/17 17:12 Dose: 100 mg Pantoprazole Sodium (Protonix Ec Tab) 40 mg PO 0600 [facility] Last Admin: 04/27/17 05:48 Dose: 40 mg Potassium Chloride (K-Dur 20 Meq Er Tab) 20 meq PO 0800 [facility] - Labs Labs: 04/26/17 06:30 04/26/17 06:30 Assessment and Plan - Assessment and Plan (Free Text) Assessment: AF with RVR Dyspnea HBP Former Smoker HLD Pneumonia Uterine Prolapse, Oophorectomy Echo: Nl LV, Mod. MR and Mild TR Plan: Continue diltiazem, metoprolol and dig. Eliquis Await labs and dig. level OOB/PT/Rehab efforts.
[2017-04-27] MEDS: Potassium Chloride 20 mEq ER Tab PO SCH (08:20)
[2017-04-27] MEDS: diltiaZEM 240 mg/24 Hours CD Cap PO SCH (10:16)
[2017-04-28] MEDS: Pantoprazole 40 mg EC Tab PO SCH (05:41)
--- NOTE | 2017-04-28 07:24 | CP.PCM.PN ---
Subjective - Date & Time of Evaluation Date of Evaluation: 04/28/17 Time of Evaluation: 07:00 - Subjective Subjective: Stable in TCU. No CP or SOB V/S noted P = 80 - 100 PE: Lungs: clear Cor.: S1S2 Abd.: soft Ext.: no edema Neuro.: alert Labs 04/27 noted: Dig = 3.2 Objective - Vital Signs/Intake and Output Vital Signs (last 24 hours): Temp Pulse Resp BP Pulse Ox 97.9 F 78 18 140/81 97 04/28/17 06:00 04/28/17 06:00 04/28/17 06:00 04/28/17 06:00 04/28/17 06:00 - Medications Medications: Current Medications Alprazolam (Xanax) 0.25 mg PO HS PRN; Protocol PRN Reason: Restlessness Stop: 05/02/17 20:39 Last Admin: 04/27/17 23:45 Dose: 0.25 mg Apixaban (Eliquis) 5 mg PO BID [facility] PRN Reason: Protocol Last Admin: 04/27/17 17:29 Dose: 5 mg Digoxin (Lanoxin) 0.125 mg PO 1400 [facility] Last Admin: 04/26/17 14:08 Dose: 0.125 mg Diltiazem HCl (Cardizem Cd) 240 mg PO DAILY [facility] Last Admin: 04/27/17 10:16 Dose: Not Given Furosemide (Lasix) 40 mg PO DAILY [facility] Last Admin: 04/27/17 10:16 Dose: 40 mg Levalbuterol HCl (Xopenex) 0.63 mg IH [id number] PRN PRN Reason: Wheezing Losartan Potassium (Cozaar) 50 mg PO DAILY [facility] Last Admin: 04/27/17 10:15 Dose: 50 mg Metoprolol Tartrate (Lopressor) 100 mg PO BRKDIN [facility] Last Admin: 04/27/17 17:29 Dose: 100 mg Pantoprazole Sodium (Protonix Ec Tab) 40 mg PO 0600 [facility] Last Admin: 04/28/17 05:41 Dose: 40 mg Potassium Chloride (K-Dur 20 Meq Er Tab) 20 meq PO 0800 [facility] Last Admin: 04/27/17 08:20 Dose: 20 meq - Labs Labs: 04/26/17 06:30 04/27/17 07:00 Assessment and Plan - Assessment and Plan (Free Text) Assessment: AF with RVR Dyspnea HBP Former Smoker HLD Pneumonia Uterine Prolapse, Oophorectomy Echo: Nl LV, Mod. MR and Mild TR Plan: Continue diltiazem, metoprolol. Hold digoxin and recheck level. Check ECG Eliquis OOB/PT/Rehab efforts.
[2017-04-28 07:55] LABS: BLOOD UREA NITROGEN 21 mg/dL (7-21); CALCIUM 9.4 mg/dL (8.4-10.5); CARBON DIOXIDE 31 mmol/L (21-33); CHLORIDE 99 mmol/L (95-110); GFR AFRICAN-AMERICAN > 60; GLUCOSE,RANDOM 97 mg/dL (70-110); SODIUM 137 mmol/L (132-148)
[2017-04-28] MEDS: Potassium Chloride 20 mEq ER Tab PO SCH (07:59)
[2017-04-28 08:16] LABS: HEMATOCRIT 42.3 % (36.0-48.0); MEAN CELL VOLUME 99.3 fL (80.0-105.0); MEAN CORPUSCULAR HEMOGLOBIN 32.9 pg (25.0-35.0); MEAN CORPUSCULAR HGB CONC 33.1 g/dl (31.0-37.0); MEAN PLATELET VOLUME 11.5 fl (7.0-11.0); RED CELL DISTRIBUTION WIDTH 14.5 % (11.5-14.5); WHITE BLOOD COUNT 7.4 10^3/ul (4.5-11.0)
[2017-04-28] MEDS: diltiaZEM 240 mg/24 Hours CD Cap PO SCH (10:04)
--- NOTE | 2017-04-28 13:02 | CP.PCM.PN ---
<Bret Garcia - Last Filed: 04/28/17 12:54> Subjective - Date & Time of Evaluation Date of Evaluation: 04/28/17 Time of Evaluation: 08:00 - Subjective Subjective: Medicine progress note: Pt seen and examined at bedside. No acute events overnight. Doing well with PT. Pt denies any complaints at this time. Denies any alcazar, dizziness, f/c, sob, cp, abd pain, n/v/d. Objective - Vital Signs/Intake and Output Vital Signs (last 24 hours): Temp Pulse Resp BP Pulse Ox 98.2 F 75 18 115/70 98 04/28/17 10:00 04/28/17 10:04 04/28/17 10:00 04/28/17 10:05 04/28/17 10:00 - Medications Medications: Current Medications Alprazolam (Xanax) 0.25 mg PO HS PRN; Protocol PRN Reason: Restlessness Stop: 05/02/17 20:39 Last Admin: 04/27/17 23:45 Dose: 0.25 mg Apixaban (Eliquis) 5 mg PO BID [facility] PRN Reason: Protocol Last Admin: 04/28/17 10:27 Dose: 5 mg Digoxin (Lanoxin) 0.125 mg PO 1400 [facility] Last Admin: 04/26/17 14:08 Dose: 0.125 mg Diltiazem HCl (Cardizem Cd) 240 mg PO DAILY [facility] Last Admin: 04/28/17 10:04 Dose: 240 mg Furosemide (Lasix) 40 mg PO DAILY [facility] Last Admin: 04/28/17 10:05 Dose: 40 mg Levalbuterol HCl (Xopenex) 0.63 mg IH [id number] PRN PRN Reason: Wheezing Losartan Potassium (Cozaar) 50 mg PO DAILY [facility] Last Admin: 04/28/17 10:04 Dose: 50 mg Metoprolol Tartrate (Lopressor) 100 mg PO BRKDIN [facility] Last Admin: 04/28/17 07:59 Dose: 100 mg Pantoprazole Sodium (Protonix Ec Tab) 40 mg PO 0600 [facility] Last Admin: 04/28/17 05:41 Dose: 40 mg Potassium Chloride (K-Dur 20 Meq Er Tab) 20 meq PO 0800 [facility] Last Admin: 04/28/17 07:59 Dose: 20 meq - Labs Labs: 04/28/17 07:00 04/28/17 07:00 - Constitutional Appears: No Acute Distress - Head Exam Head Exam: ATRAUMATIC, NORMAL INSPECTION, NORMOCEPHALIC - Eye Exam Eye Exam: EOMI, Normal appearance, PERRL Pupil Exam: NORMAL ACCOMODATION, PERRL - ENT Exam ENT Exam: Mucous Membranes Moist, Normal Exam - Neck Exam Neck Exam: Full ROM, Normal Inspection. absent: Lymphadenopathy - Respiratory Exam Respiratory Exam: Clear to Ausculation Bilateral, NORMAL BREATHING PATTERN - Cardiovascular Exam Cardiovascular Exam: Irregular Rhythm, +S1, +S2. absent: Murmur - GI/Abdominal Exam GI & Abdominal Exam: Soft, Normal Bowel Sounds. absent: Distended, Tenderness - Extremities Exam Extremities Exam: Full ROM, Normal Capillary Refill, Normal Inspection. absent : Joint Swelling, Pedal Edema - Back Exam Back Exam: NORMAL INSPECTION - Neurological Exam Neurological Exam: Alert, Awake, CN II-XII Intact, Oriented x3 - Psychiatric Exam Psychiatric exam: Normal Affect, Normal Mood - Skin Skin Exam: Dry, Intact, Normal Color, Warm Assessment and Plan - Assessment and Plan (Free Text) Assessment: 77 yo female with past medical hx of HTN, HLD, PAD, PNA presenting with sob x 1 week and found to be in rapid a fib now resolved. Sent to TCU for weakness and continued rehab. 1. A fib - Rate mostly 65-109 - Digoxin elevated at 3.2 - Hold - f/u Dig levels -continue lopressor and cardizem -echo shows moderate MR, mild TR, borderline LA enlargement -trop neg x 3 -cardio consult. Dr. Carroll. hold digoxin -Anticoagulated with Eliquis 5mg BID -CXR shows some vasc congestion -strict I/O -daily weight -continue lasix 40 daily 2. Hx of HTN -continue losartan daily, cardizem, lasix 40mg PO daily -continue lopressor 3. hx of HLD -f/u lipid panel 4. Wheezing - Added Xopenex Q6H PRN - Cont to monitor 4. GI/DVT ppx -Eliquis and protonix -PT following -further rehab in TCU Case and plan was seen, reviewed and discussed in detail with Dr Jay <John Jay - Last Filed: 04/28/17 13:34> Objective - Vital Signs/Intake and Output Vital Signs (last 24 hours): Temp Pulse Resp BP Pulse Ox 98.2 F 75 18 115/70 98 04/28/17 10:00 04/28/17 10:04 04/28/17 10:00 04/28/17 10:05 04/28/17 10:00 - Medications Medications: Current Medications Alprazolam (Xanax) 0.25 mg PO HS PRN; Protocol PRN Reason: Restlessness Stop: 05/02/17 20:39 Last Admin: 04/27/17 23:45 Dose: 0.25 mg Apixaban (Eliquis) 5 mg PO BID [facility] PRN Reason: Protocol Last Admin: 04/28/17 10:27 Dose: 5 mg Digoxin (Lanoxin) 0.125 mg PO 1400 [facility] Last Admin: 04/26/17 14:08 Dose: 0.125 mg Diltiazem HCl (Cardizem Cd) 240 mg PO DAILY [facility] Last Admin: 04/28/17 10:04 Dose: 240 mg Furosemide (Lasix) 40 mg PO DAILY [facility] Last Admin: 04/28/17 10:05 Dose: 40 mg Levalbuterol HCl (Xopenex) 0.63 mg IH [id number] PRN PRN Reason: Wheezing Losartan Potassium (Cozaar) 50 mg PO DAILY [facility] Last Admin: 04/28/17 10:04 Dose: 50 mg Metoprolol Tartrate (Lopressor) 100 mg PO BRKDIN [facility] Last Admin: 04/28/17 07:59 Dose: 100 mg Pantoprazole Sodium (Protonix Ec Tab) 40 mg PO 0600 [facility] Last Admin: 04/28/17 05:41 Dose: 40 mg Potassium Chloride (K-Dur 20 Meq Er Tab) 20 meq PO 0800 [facility] Last Admin: 04/28/17 07:59 Dose: 20 meq - Labs Labs: 04/28/17 07:00 04/28/17 07:00 Attending/Attestation - Attestation I have personally seen and examined this patient.: Yes I have fully participated in the care of the patient.: Yes I have reviewed all pertinent clinical information, including history, physical exam and plan: Yes Notes (Text): 77 yo female with past medical hx of HTN, HLD, PAD, PNA presenting with sob x 1 week and found to be in rapid a fib now resolved. Sent to TCU for weakness and continued rehab. A fib now controlled stable Hx of HTN
--- NOTE | 2017-04-29 01:10 | CARD ---
APPROVED REPORT EKG Measurement Heart [id number] <Conclusion> Atrial fibrillation with rapid ventricular response Right axis deviation Right ventricular hypertrophy ST & T wave abnormality, consider inferior ischemia or digitalis effect ST & T wave abnormality, consider anterolateral ischemia or digitalis effect Abnormal ECG
[2017-04-29] MEDS: Pantoprazole 40 mg EC Tab PO SCH (05:31)
--- NOTE | 2017-04-29 08:03 | CP.PCM.PN ---
Subjective - Date & Time of Evaluation Date of Evaluation: 04/29/17 Time of Evaluation: 07:00 - Subjective Subjective: Stable in TCU. No CP or SOB V/S noted P = 80 - 100 PE: Lungs: clear Cor.: S1S2 Abd.: soft Ext.: no edema Neuro.: alert Labs 04/28 noted: Dig = 2.5 ECG 04/28: AF with RVR at 130, STTW changes Objective - Vital Signs/Intake and Output Vital Signs (last 24 hours): Temp Pulse Resp BP Pulse Ox 98 F 88 18 119/67 95 04/29/17 06:00 04/29/17 06:00 04/29/17 06:00 04/29/17 06:00 04/29/17 06:00 Intake and Output: 04/29/17 04/29/17 06:59 18:59 Output Total 800 Balance -800 - Medications Medications: Current Medications Alprazolam (Xanax) 0.25 mg PO HS PRN; Protocol PRN Reason: Restlessness Stop: 05/02/17 20:39 Last Admin: 04/29/17 00:00 Dose: 0.25 mg Apixaban (Eliquis) 5 mg PO BID [facility] PRN Reason: Protocol Last Admin: 04/28/17 17:46 Dose: 5 mg Digoxin (Lanoxin) 0.125 mg PO 1400 [facility] Last Admin: 04/26/17 14:08 Dose: 0.125 mg Diltiazem HCl (Cardizem Cd) 240 mg PO DAILY [facility] Last Admin: 04/28/17 10:04 Dose: 240 mg Furosemide (Lasix) 40 mg PO DAILY [facility] Last Admin: 04/28/17 10:05 Dose: 40 mg Levalbuterol HCl (Xopenex) 0.63 mg IH [id number] PRN PRN Reason: Wheezing Losartan Potassium (Cozaar) 50 mg PO DAILY [facility] Last Admin: 04/28/17 10:04 Dose: 50 mg Metoprolol Tartrate (Lopressor) 100 mg PO BRKDIN [facility] Last Admin: 04/28/17 17:46 Dose: 100 mg Pantoprazole Sodium (Protonix Ec Tab) 40 mg PO 0600 [facility] Last Admin: 04/29/17 05:31 Dose: 40 mg Potassium Chloride (K-Dur 20 Meq Er Tab) 20 meq PO 0800 [facility] Last Admin: 04/28/17 07:59 Dose: 20 meq - Labs Labs: 04/28/17 07:00 04/28/17 07:00 Assessment and Plan - Assessment and Plan (Free Text) Assessment: AF with RVR Dyspnea HBP Former Smoker HLD Pneumonia Uterine Prolapse, Oophorectomy Echo: Nl LV, Mod. MR and Mild TR Plan: Increase diltiazem to 300/day, continue metoprolol 100 BID. D/C digoxin. Eliquis OOB/PT/Rehab efforts.
[2017-04-29] MEDS: Potassium Chloride 20 mEq ER Tab PO SCH (09:38)
[2017-04-29] MEDS: diltiaZEM 300 mg/24 Hours CD Cap PO SCH (11:00)
[2017-04-30] MEDS: Pantoprazole 40 mg EC Tab PO SCH (05:43)
[2017-04-30 07:45] LABS: BLOOD UREA NITROGEN 23 mg/dL (7-21); CALCIUM 9.3 mg/dL (8.4-10.5); CARBON DIOXIDE 27 mmol/L (21-33); CHLORIDE 103 mmol/L (95-110); GFR AFRICAN-AMERICAN > 60; GLUCOSE,RANDOM 97 mg/dL (70-110); POTASSIUM 3.8 mmol/L (3.6-5.0); SODIUM 138 mmol/L (132-148)
[2017-04-30] MEDS: Potassium Chloride 20 mEq ER Tab PO SCH (07:47)
--- NOTE | 2017-04-30 07:48 | CP.PCM.PN ---
Subjective - Date & Time of Evaluation Date of Evaluation: 04/30/17 Time of Evaluation: 07:00 - Subjective Subjective: Stable in TCU. No CP or SOB V/S noted P = 80 - 100 PE: Lungs: clear Cor.: S1S2 Abd.: soft Ext.: no edema Neuro.: alert Labs 04/29 noted: Dig = 1.6 ECG 04/28: AF with RVR at 130, STTW changes Objective - Vital Signs/Intake and Output Vital Signs (last 24 hours): Temp Pulse Resp BP Pulse Ox 97.8 F 73 18 136/68 94 L 04/29/17 10:00 04/29/17 17:47 04/29/17 10:00 04/29/17 17:47 04/29/17 10:00 - Medications Medications: Current Medications Alprazolam (Xanax) 0.25 mg PO HS PRN; Protocol PRN Reason: Restlessness Stop: 05/02/17 20:39 Last Admin: 04/29/17 23:57 Dose: 0.25 mg Apixaban (Eliquis) 5 mg PO BID [facility] PRN Reason: Protocol Last Admin: 04/29/17 17:47 Dose: 5 mg Diltiazem HCl (Cardizem Cd) 300 mg PO DAILY [facility] Last Admin: 04/29/17 11:00 Dose: 300 mg Furosemide (Lasix) 40 mg PO DAILY [facility] Last Admin: 04/29/17 11:00 Dose: 40 mg Levalbuterol HCl (Xopenex) 0.63 mg IH [id number] PRN PRN Reason: Wheezing Losartan Potassium (Cozaar) 50 mg PO DAILY [facility] Last Admin: 04/29/17 11:00 Dose: 50 mg Metoprolol Tartrate (Lopressor) 100 mg PO BRKDIN [facility] Last Admin: 04/29/17 17:47 Dose: 100 mg Pantoprazole Sodium (Protonix Ec Tab) 40 mg PO 0600 [facility] Last Admin: 04/30/17 05:43 Dose: 40 mg Potassium Chloride (K-Dur 20 Meq Er Tab) 20 meq PO 0800 [facility] Last Admin: 04/29/17 09:38 Dose: 20 meq - Labs Labs: 04/28/17 07:00 04/28/17 07:00 Assessment and Plan - Assessment and Plan (Free Text) Assessment: AF with RVR Dyspnea HBP Former Smoker HLD Pneumonia Uterine Prolapse, Oophorectomy Echo: Nl LV, Mod. MR and Mild TR Plan: Continue diltiazem 300/day, continue metoprolol 100 BID. D/C digoxin. Eliquis OOB/PT/Rehab efforts.
[2017-04-30] MEDS: diltiaZEM 300 mg/24 Hours CD Cap PO SCH (10:21)
--- NOTE | 2017-04-30 12:10 | CP.PCM.PN ---
<Vipul Luong - Last Filed: 04/30/17 12:10> Subjective - Date & Time of Evaluation Date of Evaluation: 04/30/17 Time of Evaluation: 12:05 - Subjective Subjective: Medicine progress note. Attending: Dr. Ayala Pt s/e at bedside. No acute distress. No events overnight. Pt has been having some diarrhea. Will order c diff. No fevers, chills, vomiting. Objective - Vital Signs/Intake and Output Vital Signs (last 24 hours): Temp Pulse Resp BP Pulse Ox 97.8 F 60 18 90/62 L 94 L 04/29/17 10:00 04/30/17 07:48 04/29/17 10:00 04/30/17 10:21 04/29/17 10:00 - Medications Medications: Current Medications Alprazolam (Xanax) 0.25 mg PO HS PRN; Protocol PRN Reason: Restlessness Stop: 05/02/17 20:39 Last Admin: 04/29/17 23:57 Dose: 0.25 mg Apixaban (Eliquis) 5 mg PO BID [facility] PRN Reason: Protocol Last Admin: 04/30/17 10:18 Dose: 5 mg Diltiazem HCl (Cardizem Cd) 300 mg PO DAILY [facility] Last Admin: 04/30/17 10:21 Dose: Not Given Furosemide (Lasix) 40 mg PO DAILY [facility] Last Admin: 04/30/17 10:21 Dose: 40 mg Levalbuterol HCl (Xopenex) 0.63 mg IH [id number] PRN PRN Reason: Wheezing Losartan Potassium (Cozaar) 50 mg PO DAILY [facility] Last Admin: 04/30/17 10:22 Dose: Not Given Metoprolol Tartrate (Lopressor) 100 mg PO BRKDIN [facility] Last Admin: 04/30/17 07:48 Dose: 100 mg Pantoprazole Sodium (Protonix Ec Tab) 40 mg PO 0600 [facility] Last Admin: 04/30/17 05:43 Dose: 40 mg Potassium Chloride (K-Dur 20 Meq Er Tab) 20 meq PO 0800 [facility] Last Admin: 04/30/17 07:47 Dose: 20 meq - Labs Labs: 04/28/17 07:00 04/30/17 07:30 - Constitutional Appears: Non-toxic, No Acute Distress - Head Exam Head Exam: ATRAUMATIC, NORMAL INSPECTION, NORMOCEPHALIC - Eye Exam Eye Exam: EOMI - ENT Exam ENT Exam: Mucous Membranes Moist - Neck Exam Neck Exam: Full ROM, Normal Inspection - Respiratory Exam Respiratory Exam: NORMAL BREATHING PATTERN. absent: Respiratory Distress - Cardiovascular Exam Cardiovascular Exam: +S1, +S2 - GI/Abdominal Exam GI & Abdominal Exam: Soft, Normal Bowel Sounds. absent: Tenderness - Extremities Exam Extremities Exam: Full ROM, Normal Inspection - Neurological Exam Neurological Exam: Alert, Awake, Oriented x3 - Psychiatric Exam Psychiatric exam: Normal Affect, Normal Mood - Skin Skin Exam: Dry, Intact, Normal Color, Warm Assessment and Plan - Assessment and Plan (Free Text) Assessment: 77 yo female with past medical hx of HTN, HLD, PAD, PNA presenting with sob x 1 week and found to be in rapid a fib now resolved. Sent to TCU for weakness and continued rehab. 1. A fib - Rate controlled - Digoxin elevated at 3.2 - Hold - f/u Dig levels -continue lopressor and cardizem -echo shows moderate MR, mild TR, borderline LA enlargement -trop neg x 3 -cardio consult. Dr. Carroll. hold digoxin -Anticoagulated with Eliquis 5mg BID -CXR shows some vasc congestion -strict I/O -daily weight -continue lasix 40 daily 2. Hx of HTN -continue losartan daily, cardizem, lasix 40mg PO daily -continue lopressor 3. hx of HLD -f/u lipid panel 4. Wheezing - Added Xopenex Q6H PRN - Cont to monitor 4. GI/DVT ppx -Eliquis and protonix -PT following -further rehab in TCU discussed with Dr. Ayala <Lucy MEMBRENO,Dante - Last Filed: 05/01/17 09:06> Objective - Vital Signs/Intake and Output Vital Signs (last 24 hours): Temp Pulse Resp BP Pulse Ox 97.5 F L 60 18 113/81 100 04/30/17 15:58 05/01/17 07:56 04/30/17 15:58 05/01/17 07:56 04/30/17 15:58 - Medications Medications: Current Medications Alprazolam (Xanax) 0.25 mg PO HS PRN; Protocol PRN Reason: Restlessness Stop: 05/02/17 20:39 Last Admin: 04/30/17 23:58 Dose: 0.25 mg Apixaban (Eliquis) 5 mg PO BID [facility] PRN Reason: Protocol Last Admin: 04/30/17 17:21 Dose: 5 mg Diltiazem HCl (Cardizem Cd) 300 mg PO DAILY [facility] Last Admin: 04/30/17 10:21 Dose: Not Given Furosemide (Lasix) 40 mg PO DAILY [facility] Last Admin: 04/30/17 10:21 Dose: 40 mg Levalbuterol HCl (Xopenex) 0.63 mg IH [id number] PRN PRN Reason: Wheezing Losartan Potassium (Cozaar) 50 mg PO DAILY [facility] Last Admin: 04/30/17 10:22 Dose: Not Given Metoprolol Tartrate (Lopressor) 100 mg PO BRKDIN [facility] Last Admin: 05/01/17 07:56 Dose: 100 mg Pantoprazole Sodium (Protonix Ec Tab) 40 mg PO 0600 [facility] Last Admin: 05/01/17 06:17 Dose: 40 mg Potassium Chloride (K-Dur 20 Meq Er Tab) 20 meq PO 0800 [facility] Last Admin: 05/01/17 07:55 Dose: 20 meq - Labs Labs: 04/28/17 07:00 05/01/17 06:30 Attending/Attestation - Attestation I have personally seen and examined this patient.: Yes I have fully participated in the care of the patient.: Yes I have reviewed all pertinent clinical information, including history, physical exam and plan: Yes Notes (Text): 05/01/17 09:04 Patient was seen and examined with biomedical engineering technologist .Agreed with resident assessment and plan. Patient is c/o dirrhea, had two loose watery stools, will check stool for c diff colitis and stool cultures Patient heart rate is controlled,digoxin level has come back to normal. + Management plan was discussed in detail with patient Education was provided.
[2017-05-01] MEDS: Pantoprazole 40 mg EC Tab PO SCH (06:17)
[2017-05-01 07:09] LABS: BLOOD UREA NITROGEN 24 mg/dL (7-21); CALCIUM 9.5 mg/dL (8.4-10.5); CARBON DIOXIDE 27 mmol/L (21-33); CHLORIDE 103 mmol/L (98-107); GFR AFRICAN-AMERICAN > 60; GLUCOSE,RANDOM 98 mg/dL (70-110); POTASSIUM 4.1 mmol/L (3.6-5.0); SODIUM 139 mmol/L (132-148)
[2017-05-01] MEDS: Potassium Chloride 20 mEq ER Tab PO SCH (07:55)
[2017-05-01] MEDS: diltiaZEM 300 mg/24 Hours CD Cap PO SCH (09:57)
--- NOTE | 2017-05-01 12:34 | CP.PCM.PN ---
Subjective - Date & Time of Evaluation Date of Evaluation: 05/01/17 Time of Evaluation: 11:15 - Subjective Subjective: Seen for followup on TCU. Sitting comfortably in bed. Unaware of any palpitations. Objective - Vital Signs/Intake and Output Vital Signs (last 24 hours): Temp Pulse Resp BP Pulse Ox 97.5 F L 60 18 108/63 95 05/01/17 10:00 05/01/17 10:00 05/01/17 10:00 05/01/17 10:00 05/01/17 10:00 - Medications Medications: Current Medications Alprazolam (Xanax) 0.25 mg PO HS PRN; Protocol PRN Reason: Restlessness Stop: 05/02/17 20:39 Last Admin: 04/30/17 23:58 Dose: 0.25 mg Apixaban (Eliquis) 5 mg PO BID [facility] PRN Reason: Protocol Last Admin: 05/01/17 09:55 Dose: 5 mg Diltiazem HCl (Cardizem Cd) 300 mg PO DAILY [facility] Last Admin: 05/01/17 09:57 Dose: 300 mg Furosemide (Lasix) 40 mg PO DAILY [facility] Last Admin: 05/01/17 09:57 Dose: 40 mg Levalbuterol HCl (Xopenex) 0.63 mg IH [id number] PRN PRN Reason: Wheezing Losartan Potassium (Cozaar) 50 mg PO DAILY [facility] Last Admin: 05/01/17 09:57 Dose: 50 mg Metoprolol Tartrate (Lopressor) 100 mg PO BRKDIN [facility] Last Admin: 05/01/17 07:56 Dose: 100 mg Pantoprazole Sodium (Protonix Ec Tab) 40 mg PO 0600 [facility] Last Admin: 05/01/17 06:17 Dose: 40 mg Potassium Chloride (K-Dur 20 Meq Er Tab) 20 meq PO 0800 [facility] Last Admin: 05/01/17 07:55 Dose: 20 meq - Labs Labs: 04/28/17 07:00 05/01/17 06:30 - Constitutional Appears: No Acute Distress - Neck Exam Neck Exam: Normal Inspection - Respiratory Exam Respiratory Exam: Clear to Ausculation Bilateral - Cardiovascular Exam Cardiovascular Exam: Irregular Rhythm - GI/Abdominal Exam GI & Abdominal Exam: Soft, Normal Bowel Sounds - Neurological Exam Neurological Exam: Oriented x3 - Psychiatric Exam Psychiatric exam: Anxious Assessment and Plan (1) Atrial fibrillation Assessment & Plan: Continue current rate control therapy. Continue treatment with Eliquis. Increase activities as able. Reassured regarding stable nature of her condition. Status: Acute
[2017-05-02] MEDS: Pantoprazole 40 mg EC Tab PO SCH (05:52)
[2017-05-02 07:14] LABS: BLOOD UREA NITROGEN 26 mg/dL (7-21); CALCIUM 9.6 mg/dL (8.4-10.5); CARBON DIOXIDE 27 mmol/L (21-33); CHLORIDE 104 mmol/L (98-107); GFR AFRICAN-AMERICAN > 60; GLUCOSE,RANDOM 98 mg/dL (70-110); POTASSIUM 4.2 mmol/L (3.6-5.0); SODIUM 140 mmol/L (132-148)
[2017-05-02] MEDS: Potassium Chloride 20 mEq ER Tab PO SCH (08:02)
[2017-05-02] MEDS: diltiaZEM 300 mg/24 Hours CD Cap PO SCH (10:38)
--- NOTE | 2017-05-02 13:42 | CP.PCM.PN ---
<Vipul Luong - Last Filed: 05/02/17 13:43> Subjective - Date & Time of Evaluation Date of Evaluation: 05/02/17 Time of Evaluation: 13:40 - Subjective Subjective: medicine progress note. DR. Ayala Pt seen and examined at bedside. No acute distress. No events overnight. No fevers, chills, vomiting, cp, sob. Objective - Vital Signs/Intake and Output Vital Signs (last 24 hours): Temp Pulse Resp BP Pulse Ox 98.1 F 86 18 116/66 98 05/02/17 10:00 05/02/17 10:38 05/02/17 10:00 05/02/17 10:39 05/02/17 10:00 - Medications Medications: Current Medications Acetaminophen (Tylenol 325mg Tab) 650 mg PO Q6H PRN; Protocol PRN Reason: Pain, Mild (1-3) Alprazolam (Xanax) 0.25 mg PO HS PRN; Protocol PRN Reason: Restlessness Stop: 05/02/17 20:39 Last Admin: 05/01/17 23:24 Dose: 0.25 mg Apixaban (Eliquis) 5 mg PO BID [facility] PRN Reason: Protocol Last Admin: 05/02/17 10:39 Dose: 5 mg Diltiazem HCl (Cardizem Cd) 300 mg PO DAILY [facility] Last Admin: 05/02/17 10:38 Dose: 300 mg Furosemide (Lasix) 40 mg PO DAILY [facility] Last Admin: 05/02/17 10:39 Dose: 40 mg Levalbuterol HCl (Xopenex) 0.63 mg [facility] [id number] PRN PRN Reason: Wheezing Losartan Potassium (Cozaar) 50 mg PO DAILY [facility] Last Admin: 05/02/17 10:38 Dose: 50 mg Metoprolol Tartrate (Lopressor) 100 mg PO BRKDIN [facility] Last Admin: 05/02/17 08:01 Dose: Not Given Pantoprazole Sodium (Protonix Ec Tab) 40 mg PO 0600 [facility] Last Admin: 05/02/17 05:52 Dose: 40 mg Potassium Chloride (K-Dur 20 Meq Er Tab) 20 meq PO 0800 [facility] Last Admin: 05/02/17 08:02 Dose: 20 meq - Labs Labs: 04/28/17 07:00 05/02/17 06:20 - Constitutional Appears: Non-toxic, No Acute Distress - Head Exam Head Exam: ATRAUMATIC, NORMAL INSPECTION, NORMOCEPHALIC - Eye Exam Eye Exam: EOMI - ENT Exam ENT Exam: Mucous Membranes Moist - Neck Exam Neck Exam: Full ROM, Normal Inspection - Respiratory Exam Respiratory Exam: NORMAL BREATHING PATTERN. absent: Respiratory Distress - Cardiovascular Exam Cardiovascular Exam: Bradycardia, +S1, +S2 - GI/Abdominal Exam GI & Abdominal Exam: Soft, Normal Bowel Sounds. absent: Tenderness - Extremities Exam Extremities Exam: Full ROM, Normal Inspection - Back Exam Back Exam: NORMAL INSPECTION - Neurological Exam Neurological Exam: Alert, Awake, Oriented x3 - Psychiatric Exam Psychiatric exam: Normal Affect, Normal Mood - Skin Skin Exam: Dry, Intact, Normal Color, Warm Assessment and Plan - Assessment and Plan (Free Text) Assessment: 77 yo female with past medical hx of HTN, HLD, PAD, PNA presenting with sob x 1 week and found to be in rapid a fib now resolved. Sent to TCU for weakness and continued rehab. 1. A fib - Rate controlled - Digoxin elevated at 3.2 - Hold - f/u Dig levels -continue lopressor and cardizem -lopressor held this morning due to low heart rate -echo shows moderate MR, mild TR, borderline LA enlargement -trop neg x 3 -cardio consult. Dr. Carroll. hold digoxin -Anticoagulated with Eliquis 5mg BID -CXR shows some vasc congestion -strict I/O -daily weight -continue lasix 40 daily 2. Hx of HTN -continue losartan daily, cardizem, lasix 40mg PO daily -continue lopressor (held this morning) 3. Diarrhea -c diff is negative -continue to monitor 4. Wheezing - Added Xopenex Q6H PRN - Cont to monitor 4. GI/DVT ppx -Eliquis and protonix -PT following -further rehab in TCU discussed with Dr. Ayala <Lucy MEMBRENO,Dante - Last Filed: 05/03/17 12:08> Objective - Vital Signs/Intake and Output Vital Signs (last 24 hours): Temp Pulse Resp BP Pulse Ox 97.5 F L 73 18 122/67 97 05/02/17 16:00 05/03/17 09:08 05/02/17 16:00 05/03/17 09:08 05/02/17 16:00 - Medications Medications: Current Medications Acetaminophen (Tylenol 325mg Tab) 650 mg PO Q6H PRN; Protocol PRN Reason: Pain, Mild (1-3) Alprazolam (Xanax) 0.25 mg PO HS PRN; Protocol PRN Reason: Anxiety Stop: 05/10/17 22:01 Last Admin: 05/02/17 23:38 Dose: 0.25 mg Apixaban (Eliquis) 5 mg PO BID [facility] PRN Reason: Protocol Last Admin: 05/03/17 11:24 Dose: 5 mg Diltiazem HCl (Cardizem Cd) 300 mg PO DAILY [facility] Last Admin: 05/03/17 09:05 Dose: 300 mg Furosemide (Lasix) 40 mg PO DAILY [facility] Last Admin: 05/03/17 09:07 Dose: 40 mg Levalbuterol HCl (Xopenex) 0.63 mg [facility] [id number] PRN PRN Reason: Wheezing Losartan Potassium (Cozaar) 50 mg PO DAILY [facility] Last Admin: 05/03/17 09:06 Dose: 50 mg Metoprolol Tartrate (Lopressor) 100 mg PO BRKDIN [facility] Last Admin: 05/03/17 09:08 Dose: 100 mg Pantoprazole Sodium (Protonix Ec Tab) 40 mg PO 0600 [facility] Last Admin: 05/03/17 05:30 Dose: 40 mg Potassium Chloride (K-Dur 20 Meq Er Tab) 20 meq PO 0800 [facility] Last Admin: 05/03/17 09:07 Dose: 20 meq - Labs Labs: 04/28/17 07:00 05/02/17 06:20 Attending/Attestation - Attestation I have personally seen and examined this patient.: Yes I have fully participated in the care of the patient.: Yes I have reviewed all pertinent clinical information, including history, physical exam and plan: Yes Notes (Text): 05/03/17 12:06 Patient was seen and examined with medical record assistant .Agreed with resident assessment and plan. Patient is feeling better, diarrhea has resolved.Stool studies were negative for C diff colitis.Patient heart rate is better controlled. Management plan was discussed in detail with patient Education was provided.
[2017-05-02 19:15] VITALS: TEMP 97.5; O2SAT 97
[2017-05-03] MEDS: Pantoprazole 40 mg EC Tab PO SCH (05:30)
[2017-05-03] MEDS: diltiaZEM 300 mg/24 Hours CD Cap PO SCH (09:05)
[2017-05-03] MEDS: Potassium Chloride 20 mEq ER Tab PO SCH (09:07)
[2017-05-03 09:10] VITALS: BP 122/67; PULSE 73
--- NOTE | 2017-05-05 19:01 | CP.PCM.DIS ---
Provider - Provider Date of Admission: 04/25/17 20:15 Attending physician: Dante Ayala MD Primary care physician: Jovi Mays MD Consults: Cardio Adelaide Carroll Time Spent in preparation of Discharge (in minutes): 45 Hospital Course - Lab Results Lab Results: Micro Results 05/01/17 07:15 Stool Stool Culture - Final NO SALMONELLA, SHIGELLA OR CAMPYLOBACTER ISOLATED. 05/01/17 07:15 Stool C. difficile Antigen & Toxin A,B (M - Final Most Recent Lab Values WBC 7.4 10^3/ul (4.5-11.0) 04/28/17 07:00 RBC 4.26 10^6/uL (3.5-6.1) 04/28/17 07:00 Hgb 14.0 gm/dL (12.0-16.0) 04/28/17 07:00 Hct 42.3 % (36.0-48.0) 04/28/17 07:00 MCV 99.3 fL (80.0-105.0) 04/28/17 07:00 MCH 32.9 pg (25.0-35.0) 04/28/17 07:00 MCHC 33.1 g/dl (31.0-37.0) 04/28/17 07:00 RDW 14.5 % (11.5-14.5) 04/28/17 07:00 Plt Count 312 10^3/uL (120.0-450.0) 04/28/17 07:00 MPV 11.5 fl (7.0-11.0) H 04/28/17 07:00 Gran % 57.8 % (50.0-68.0) 04/26/17 06:30 Lymph % (Auto) 28.5 % (22.0-35.0) 04/26/17 06:30 Barton % (Auto) 10.2 % (1.0-6.0) H 04/26/17 06:30 Eos % (Auto) 2.7 % (1.5-5.0) 04/26/17 06:30 Baso % (Auto) 0.8 % (0.0-3.0) 04/26/17 06:30 Gran # 3.82 (1.4-6.5) 04/26/17 06:30 Lymph # 1.9 (1.2-3.4) 04/26/17 06:30 Barton # 0.7 (0.1-0.6) H 04/26/17 06:30 Eos # 0.2 (0.0-0.7) 04/26/17 06:30 Baso # 0.05 K/mm3 (0.0-2.0) 04/26/17 06:30 Sodium 140 mmol/L (132-148) 05/02/17 06:20 Potassium 4.2 mmol/L (3.6-5.0) 05/02/17 06:20 Chloride 104 mmol/L (98-107) 05/02/17 06:20 Carbon Dioxide 27 mmol/L (21-33) 05/02/17 06:20 Anion Gap 13 (10-20) 05/02/17 06:20 BUN 26 mg/dL (7-21) H 05/02/17 06:20 Creatinine 0.8 mg/dL (0.5-1.4) 05/02/17 06:20 Est GFR ( Amer) > 60 05/02/17 06:20 Est GFR (Non-Af Amer) > 60 05/02/17 06:20 Random Glucose 98 mg/dL (70-110) 05/02/17 06:20 Calcium 9.6 mg/dL (8.4-10.5) 05/02/17 06:20 Phosphorus 3.7 mg/dL (2.5-4.5) 04/27/17 07:00 Magnesium 2.1 mg/dL (1.7-2.2) 04/27/17 07:00 Total Bilirubin 0.4 mg/dL (0.2-1.3) 04/27/17 07:00 AST 38 U/L (15-39) 04/27/17 07:00 ALT 52 U/L (7-56) 04/27/17 07:00 Alkaline Phosphatase 76 U/L (38-133) 04/27/17 07:00 Total Protein 6.7 g/dL (5.8-8.3) 04/27/17 07:00 Albumin 3.8 g/dL (3.0-4.8) 04/27/17 07:00 Globulin 2.8 gm/dL 04/27/17 07:00 Albumin/Globulin Ratio 1.3 (1.1-1.8) 04/27/17 07:00 Digoxin 1.4 ng/mL (0.8-2.0) 04/30/17 07:30 - Hospital Course Hospital Course: Attending: Lucy Admit date- 04/26 DC date- 05/05 Consults Adelaide Carroll - Date & Time of H&P Date of H&P: 04/26/17 Time of H&P: 11:17 Discharge Exam - Head Exam Head Exam: ATRAUMATIC, NORMAL INSPECTION, NORMOCEPHALIC - Eye Exam Eye Exam: EOMI - ENT Exam ENT Exam: Mucous Membranes Moist - Neck Exam Neck exam: Full Rom, Normal Inspection - Respiratory Exam Respiratory Exam: NORMAL BREATHING PATTERN, UNREMARKABLE - Cardiovascular Exam Cardiovascular Exam: +S1, +S2 - GI/Abdominal Exam GI & Abdominal Exam: Normal Bowel Sounds - Extremities Exam Extremities exam: full ROM, normal inspection - Neurological Exam Neurological exam: Alert, Oriented x3 - Psychiatric Exam Psychiatric exam: Normal Affect, Normal Mood - Skin Skin Exam: Dry, Intact, Normal Color, Warm Discharge Plan - Discharge Medications Prescriptions: Apixaban [Eliquis] 5 mg PO BID #60 tab Diltiazem HCl [Diltiazem 24Hr ER] 300 mg PO DAILY #30 capsule.er Furosemide [Lasix] 40 mg PO DAILY #30 tab Losartan [Cozaar] 50 mg PO DAILY #30 tab Metoprolol Tartrate [Lopressor] 100 mg PO BRKDIN #30 tab Potassium Chloride [K-Dur 20 mEq ER Tab] 20 meq PO DAILY #30 tab - Follow Up Plan Condition: STABLE Disposition: HOME/ ROUTINE Instructions: Heart Failure (DC), Atrial Fibrillation (DC), Fall Prevention (DC ) Additional Instructions: If your symptoms recur come back to the ED. Check your blood pressure daily. Take your medications as prescribed. Follow up with your PMD with in 2-3 days. \ Follow up with your senior it business analyst with in 1-2 weeks. Referrals: Jovi Mays MD [Primary Care Provider] -
== END 2017-05-03 12:42 | disposition home or self-care (01) | DRG 195 ==
LOC: TRCU 20:15
PROVIDERS: ADMIT Internal Medicine; ATTEND Internal Medicine
PROC: F07Z9FZ Gait Training/Functional Ambulation Treatment using Assistive, Adaptive, Supportive or Protective Equipment (ICD-10-PCS; principal; 2017-04-26)
PROC: F07M6ZZ Therapeutic Exercise Treatment of Musculoskeletal System - Whole Body (ICD-10-PCS; 2017-04-26)
PROC: F08Z4ZZ Home Management Treatment (ICD-10-PCS; 2017-04-26)
DX: J18.9 Pneumonia, unspecified organism (principal); I48.91 Unspecified atrial fibrillation; I10 Essential (primary) hypertension; N81.4 Uterovaginal prolapse, unspecified; E78.5 Hyperlipidemia, unspecified; Z79.82 Long term (current) use of aspirin; Z80.1 Family history of malignant neoplasm of trachea, bronchus and lung; Z82.49 Family history of ischemic heart disease and other diseases of the circulatory system; Z87.891 Personal history of nicotine dependence; E21.3 Hyperparathyroidism, unspecified; Z87.19 Personal history of other diseases of the digestive system; Z88.5 Allergy status to narcotic agent; Z88.2 Allergy status to sulfonamides; R06.2 Wheezing; Z90.721 Acquired absence of ovaries, unilateral; R19.7 Diarrhea, unspecified

== ENCOUNTER 2017-06-21 12:47 | Inpatient (IN) | payer MEDICARE ==
[2017-06-21 12:51] VITALS: BMI 18.8
[2017-06-21 13:09] LABS: BASO # 0.05 K/mm3 (0.0-2.0); BASO % 0.7 % (0.0-3.0); EOS # 0.2 (0.0-0.7); EOS % 2.5 % (1.5-5.0); GRAN # 4.12 (1.4-6.5); GRAN % 56.4 % (50.0-68.0); HEMATOCRIT 42.8 % (36.0-48.0); LYMPH # 2.5 (1.2-3.4); LYMPH % 33.7 % (22.0-35.0); MEAN CELL VOLUME 94.5 fl (80.0-105.0); MEAN CORPUSCULAR HEMOGLOBIN 32.2 pg (25.0-35.0); MEAN CORPUSCULAR HGB CONC 34.1 g/dl (31.0-37.0); MEAN PLATELET VOLUME 11.7 fl (7.0-11.0); MONO # 0.5 (0.1-0.6); MONO % 6.7 % (1.0-6.0); RED CELL DISTRIBUTION WIDTH 13.3 % (11.5-14.5); WHITE BLOOD COUNT 7.3 10^3/ul (4.5-11.0)
[2017-06-21 13:18] LABS: ALB/GLOB RATIO 1.5 (1.1-1.8); ALKALINE PHOSPHATASE 84 U/L (38-133); ALT/SGPT 109 U/L (7-56); AST/SGOT 40 U/L (15-39); BILIRUBIN,TOTAL 0.6 mg/dL (0.2-1.3); BLOOD UREA NITROGEN 16 mg/dL (7-21); CALCIUM 9.8 mg/dL (8.4-10.5); CARBON DIOXIDE 24 mmol/L (21-33); CHLORIDE 100 mmol/L (98-107); GFR AFRICAN-AMERICAN > 60; GLUCOSE,RANDOM 141 mg/dL (70-110); MAGNESIUM 1.9 mg/dL (1.7-2.2); POTASSIUM 4.6 mmol/L (3.6-5.0); SODIUM 137 mmol/L (132-148)
--- NOTE | 2017-06-21 13:18 | ED PDOC ---
Arrival/HPI - General Chief Complaint: Palpitations Time Seen by Provider: 06/21/17 12:51 Historian: Patient - History of Present Illness Narrative History of Present Illness (Text): 06/21/17 13:15 Sandra Miller is a 77 year old female, with a history of afib on Eliquis, presents to the emergency department complaining of palpitations and mild chest pain. States that chest pain has currently resolved. Patient was seen at [facility] for similar symptoms in the past. Denies any other complaints. Time/Duration: 1-3 hours Symptom Onset: Gradual Symptom Course: Improving Severity Level: Mild Activities at Onset: Light Past Medical History - Provider Review Nursing Documentation Reviewed: Yes - Infectious Disease Hx of Infectious Diseases: None - Tetanus Immunization Tetanus Immunization: Unknown - Cardiac Hx Cardiac Disorders: Yes Hx Congestive Heart Failure: Yes Hx Hypertension: Yes - Pulmonary Hx Pneumonia: Yes ("many times") - HEENT Hx HEENT Disorder: Yes (eyeglasses) - Endocrine/Metabolic Hx Endocrine Disorders: Yes (hyperparathyroid) - Musculoskeletal/Rheumatological Hx Falls: No - Gastrointestinal Hx Diverticulitis: Yes ("I think I may have had diverticulitis") - Genitourinary/Gynecological Hx Genitourinary Disorders: Yes (prolapsed uterine bladder/frequency) - Psychiatric Hx Substance Use: No - Anesthesia Hx Anesthesia Reactions: No Hx Malignant Hyperthermia: No Family/Social History - Physician Review Nursing Documentation Reviewed: Yes Family/Social History: No Known Family HX Smoking Status: Former Smoker Hx Alcohol Use: Yes Hx Substance Use: No Allergies/Home Meds Allergies/Adverse Reactions: Allergies codeine Allergy (Verified 06/21/17 15:51) RASH Sulfa (Sulfonamide Antibiotics) Allergy (Verified 06/21/17 15:51) RASH Review of Systems - Physician Review All systems were reviewed & negative as marked: Yes - Review of Systems Constitutional: Normal. absent: Fatigue, Fevers Respiratory: Normal. absent: SOB, Cough, Sputum Cardiovascular: Chest Pain, Palpitations Gastrointestinal: Normal. absent: Abdominal Pain, Diarrhea, Nausea, Vomiting, Appetite Changes Genitourinary Female: Normal Neurological: Normal. absent: Headache, Dizziness Psychiatric: Normal Physical Exam Vital Signs Reviewed: Yes Vital Signs Temp Pulse Resp BP Pulse Ox 06/21/17 13:26 81 18 115/61 99 06/21/17 13:18 141 H 109/65 06/21/17 13:00 97.6 F 122 H 18 109/65 96 Temperature: Afebrile Blood Pressure: Normal Pulse: Tachycardic Respiratory Rate: Normal Appearance: Positive for: Well-Appearing, Non-Toxic, Comfortable Pain Distress: None Mental Status: Positive for: Alert and Oriented X 3 - Systems Exam Head: Present: Atraumatic, Normocephalic Pupils: Present: PERRL Conjunctiva: Present: Normal Mouth: Present: Moist Mucous Membranes Respiratory/Chest: Present: Clear to Auscultation, Good Air Exchange. No: Respiratory Distress, Accessory Muscle Use Cardiovascular: Present: Normal S1, S2, Irregular Rhythm (Irregularly irregular ). No: Murmurs Abdomen: Present: Normal Bowel Sounds. No: Tenderness, Distention, Peritoneal Signs Upper Extremity: Present: Normal Inspection. No: Cyanosis, Edema Lower Extremity: Present: Normal Inspection. No: Edema Neurological: Present: GCS=15, CN II-XII Intact, Speech Normal Skin: Present: Warm, Dry, Normal Color. No: Rashes Psychiatric: Present: Alert, Oriented x 3, Normal Insight, Normal Concentration Medical Decision Making ED Course and Treatment: 06/21/17 13:20 Impression: A 77 year old female who presents to the emergency department complaining of palpitations and chest pain. States that chest pain has currently resolved. Plan: -- EKG -- Labs, cardiac enzymes -- Chest X-ray -- Cardizem -- Urinalysis -- Reassess and disposition Progress Notes: - Lab Interpretations Lab Results: 06/21/17 13:05 06/21/17 13:05 Lab Results 06/21/17 13:05: Sodium 137, Potassium 4.6, Chloride 100, Carbon Dioxide 24, Anion Gap 18, BUN 16, Creatinine 0.9, Est GFR ( Amer) > 60, Est GFR (Non- Af Amer) > 60, Random Glucose 141 H, Calcium 9.8, Magnesium 1.9, Total Bilirubin 0.6, AST 40 H, ALT 109 H, Alkaline Phosphatase 84, Lactate Dehydrogenase 446, Total Creatine Kinase 28 L, Troponin I < 0.01 D, Total Protein 7.0, Albumin 4.2, Globulin 2.8, Albumin/Globulin Ratio 1.5 06/21/17 13:05: PT 12.1 H, INR 1.12 H, APTT 26.9 06/21/17 13:05: WBC 7.3, RBC 4.53, Hgb 14.6, Hct 42.8, MCV 94.5, MCH 32.2, MCHC 34.1, RDW 13.3, Plt Count 302, MPV 11.7 H, Gran % 56.4, Lymph % (Auto) 33.7, [place] % (Auto) 6.7 H, Eos % (Auto) 2.5, Baso % (Auto) 0.7, Gran # 4.12, Lymph # 2.5, [place] # 0.5, Eos # 0.2, Baso # 0.05 - RAD Interpretation Radiology Orders: 06/21/17 13:04 CHEST PORTABLE [RAD] Stat - Medication Orders Current Medication Orders: Apixaban (Eliquis) 5 mg PO BID ISIDRA PRN Reason: Protocol Diltiazem HCl (Cardizem Cd) 300 mg PO DAILY ISIDRA Losartan Potassium (Cozaar) 50 mg PO DAILY ISIDRA Metoprolol Tartrate (Lopressor) 5 mg IVP Q6 PRN PRN Reason: HR >130 , HOLD IF SBP <100 Metoprolol Tartrate (Lopressor) 100 mg PO BRKDIN ISIDRA Pantoprazole Sodium (Protonix Ec Tab) 40 mg PO DAILY ISIDRA Pneumococcal Polyvalent Vaccine (Pneumovax 23 Vaccine) 0.5 ml IM .ONCE ONE Stop: 06/21/17 17:08 Potassium Chloride (K-Dur 20 Meq Er Tab) 20 meq PO DAILY ISIDRA Discontinued Medications Diltiazem HCl (Cardizem) 10 mg IVP STAT STA Stop: 06/21/17 13:05 Last Admin: 06/21/17 13:18 Dose: 10 mg - Scribe Statement The provider has reviewed the documentation as recorded by the Sivakumar Eden Provider Attestation: Provider Scribe Attestation: All medical record entries made by the Wilmaibtod were at my direction and personally dictated by me. I have reviewed the chart and agree that the record accurately reflects my personal performance of the history, physical exam, medical decision making, and the department course for this patient. I have also personally directed, reviewed, and agree with the discharge instructions and disposition. Disposition/Present on Arrival - Present on Arrival Any Indicators Present on Arrival: No History of DVT/PE: No History of Uncontrolled Diabetes: No Urinary Catheter: No History of Decub. Ulcer: No History Surgical Site Infection Following: None - Disposition Have Diagnosis and Disposition been Completed?: Yes Diagnosis: Atrial fibrillation Disposition: HOME/ ROUTINE Disposition Time: 03:00 Condition: STABLE
[2017-06-21 13:21] LABS: INR 1.12 (0.93-1.08); PARTIAL THROMBOPLASTIN TIME 26.9 Seconds (23.7-30.8)
--- NOTE | 2017-06-21 13:32 | RAD ---
HISTORY: Chest pain. Portable study 13:20. COMPARISON: 04/21/2017 FINDINGS: LUNGS: No active pulmonary disease. PLEURA: No significant pleural effusion identified, no pneumothorax apparent. CARDIOVASCULAR: No radiographic findings to suggest acute or significant cardiovascular disease. OSSEOUS STRUCTURES: No significant abnormalities. VISUALIZED UPPER ABDOMEN: Normal. OTHER FINDINGS: None. IMPRESSION: No active disease.
[2017-06-21 13:33] LABS: TROPONIN I < 0.01 ng/mL
[2017-06-21] MEDS ORDERED: Metoprolol 1 mg/ml Inj IVP PRN (15:07)
--- NOTE | 2017-06-21 15:50 | CP.PCM.HP ---
<ARNALDO BAUER - Last Filed: 06/21/17 15:47> History of Present Illness - History of Present Illness History of Present Illness: CC: Palpitations 77 year old female with a known history of afib on Eliquis who reports an onset of dizziness and diaphoresis, as well as a sensation of "vibrations" in her back this morning upon waking up. Patient reports taking her heart rate at home at that time, which was 152, and she subsequently took her usual medications and rested. She reports that when she woke up, her HR was still in the 140's, so she called her electrical system specialist, Dr. Carroll's office, who advised ED evaluation. In the ED, patient was found to have rapid atrial fibrillation in the 140's, which decreased to 80bpm after she received Cardizem. Patient states that she now feels well, and no longer feels dizzy or sweaty. Patient additionally reports that last night, she had one episode of mild L sided chest pain radiating to the L arm that lasted for a few seconds and resolved. She also states that she had multiple episodes of diarrhea throughout the night. Patient was also admitted in April 2016 for a similar presentation of atrial fibrillation. She was admitted for the time, had an echocardiogram showing EF 74.3%, and was discharged home with Rx: Cardizem increased from 200 to 300mg, Eliquis, Lasix, Losartan, potassium. Patient last followed up with her PMD and her electrical system specialist in May. PMD: Dr. Mays Lip Reading Teacher: Dr. Carroll PMHx: AfIB, HTN, HLD, PVD, pneumonia, uterine prolapse PSHx: Oophrectomy Medications: Eliquis 5mg BID, Diltiazem 300mg SR QD, Lopressor 100 mg BID, Lasix 40 mg QD, Losartan 50 mg QD, Potassium chloride 20mEq PO daily, Xanax 0.25 mg PO PRN Allergies: Codeine, sulfa (causes hives, cough respectively) Social hx: - Smoking: quit in 1994 - EtOH: social, last had wine prior to admission in April - denies recreational drugs - not employed - lives alone in [place] Present on Admission - Present on Admission Any Indicators Present on Admission: No Review of Systems - Review of Systems All systems: reviewed and no additional remarkable complaints except (12 point ROS negative other than what is stated in HPI) Past Patient History - Infectious Disease Hx of Infectious Diseases: None - Tetanus Immunizations Tetanus Immunization: Unknown - Past Medical History & Family History Past Medical History?: Yes - Past Social History Smoking Status: Former Smoker - CARDIAC Hx Cardiac Disorders: Yes Hx Congestive Heart Failure: Yes Hx Hypertension: Yes - PULMONARY Hx Pneumonia: Yes ("many times") - HEENT Hx HEENT Problems: Yes (eyeglasses) - ENDOCRINE/METABOLIC Hx Endocrine Disorders: Yes (hyperparathyroid) - MUSCULOSKELETAL/RHEUMATOLOGICAL Hx Falls: No - GASTROINTESTINAL Hx Diverticulitis: Yes ("I think I may have had diverticulitis") - GENITOURINARY/GYNECOLOGICAL Hx Genitourinary Disorders: Yes (prolapsed uterine bladder/frequency) - PSYCHIATRIC Hx Substance Use: No - SURGICAL HISTORY Hx Surgeries: Yes (oopherectomy 1989) - ANESTHESIA Hx Anesthesia Reactions: No Hx Malignant Hyperthermia: No Meds Allergies/Adverse Reactions: Allergies Allergy/AdvReac Type Severity Reaction Status Date / Time codeine Allergy RASH Verified 06/21/17 15:51 Sulfa (Sulfonamide Allergy RASH Verified 06/21/17 15:51 Antibiotics) Physical Exam - Constitutional Appears: No Acute Distress - Head Exam Head Exam: ATRAUMATIC, NORMOCEPHALIC - Eye Exam Eye Exam: EOMI, PERRL Pupil Exam: PERRL - ENT Exam ENT Exam: Mucous Membranes Moist - Neck Exam Neck exam: Positive for: Full Rom. Negative for: Lymphadenopathy, Tenderness, Thyromegaly Additional comments: No JVD - Respiratory Exam Respiratory Exam: Clear to Auscultation Bilateral. absent: Rales, Rhonchi, Wheezes - Cardiovascular Exam Cardiovascular Exam: Irregular Rhythm, +S1, +S2. absent: Diastolic murmur, Gallop, Rubs, Systolic Murmur - GI/Abdominal Exam GI & Abdominal Exam: Soft. absent: Firm, Guarding, Organomegaly, Rebound, Tenderness - Extremities Exam Extremities exam: Positive for: normal inspection - Back Exam Back exam: NORMAL INSPECTION - Neurological Exam Neurological exam: Alert, CN II-XII Intact, Oriented x3 - Psychiatric Exam Psychiatric exam: Normal Affect, Normal Mood - Skin Skin Exam: Dry, Intact, Normal Color, Warm Results - Vital Signs Recent Vital Signs: Last Vital Signs Temp 97.6 F 06/21/17 13:00 Pulse 81 06/21/17 13:26 Resp 18 06/21/17 13:26 BP 115/61 06/21/17 13:26 Pulse Ox 99 06/21/17 13:26 - Labs Result Diagrams: 06/21/17 13:05 06/21/17 13:05 Assessment & Plan - Assessment and Plan (Free Text) Assessment: 77 yo F with AFib, HTN, HLD, and PVD will be admitted for evaluation and treatment for atrial fibrillation with RVR. Plan: 1. A-Fib with RVR - Diltiazem given in the ED, converted pt HR to 70-80s - F/u Cardio consult - Troponin on admission negative, will trend troponins x2 - Metoprolol 5 mg IVP Q6H PRN for HR>130, hold if SBP<100 - Diltiazem 300 mg PO daily - Metoprolol 100 mg PO daily - Eliquis 5 mg PO BID 2. Transaminitis - F/u hep panel - Trend LFTs 3. HTN - Losartan 50 mg PO daily - Monitor BP GI/DVT PPx - Protonix - Pt already on Eliquis, which will be sufficient for DVT PPx Pt was seen and discussed in detail with Dr. Vazquez <Thomas Vazquez - Last Filed: 06/21/17 16:38> Results - Vital Signs Recent Vital Signs: Last Vital Signs Temp 97.6 F 06/21/17 13:00 Pulse 66 06/21/17 15:15 Resp 18 06/21/17 15:15 BP 105/69 06/21/17 15:15 Pulse Ox 99 06/21/17 15:15 - Labs Result Diagrams: 06/21/17 13:05 06/21/17 13:05 Attending/Attestation - Attestation I have personally seen and examined this patient.: Yes I have fully participated in the care of the patient.: Yes I have reviewed all pertinent clinical information: Yes Notes (Text): 06/21/17 16:35 77 year old female with past medical history of afib, hypertension and dyslipidemia who presented with complaint of palpitations and chest pain last night. She was found to have Afib with RVR which improved after one dose of iv cardizem in the ER. Will admit to telemetry unit and obtain serial cardiac enzymes to rule out ACS. Cardiology evaluation is requested. Continue with cardizem and lopressor for rate control. Patient is also on eliquis for anticoagulation. LFTs are also mildly elevated which we will monitor closely. Hepatitis panel is ordered. She denies any ETOH or tylenol use at home. Thomas Vazquez MD Hospitalist.
--- NOTE | 2017-06-21 16:26 | CARD ---
APPROVED REPORT EKG Measurement Heart [id number] <Conclusion> Suspect arm lead reversal, interpretation assumes no reversal Atrial fibrillation with rapid ventricular response Right axis deviation Right ventricular hypertrophy with repolarization abnormality Septal infarct, age undetermined Abnormal ECG
[2017-06-21] MEDS ORDERED: Pneumococcal 23-Valent Vaccine IM ONE (17:07)
[2017-06-22 02:04] LABS: URINE BILIRUBIN NEGATIVE (NEGATIVE); URINE BLOOD TRACE-INTACT (NEGATIVE); URINE GLUCOSE (UA) NEGATIVE (NEGATIVE); URINE KETONE NEGATIVE (NEGATIVE); URINE LEUKOCYTE ESTERASE SMALL Leu/uL (NEGATIVE); URINE PROTEIN NEGATIVE mg/dL (<30 mg/dL); URINE UROBILINOGEN 0.2 E.U./dL (<1 E.U./dL)
[2017-06-22 02:06] LABS: URINE APPEARANCE CLEAR (CLEAR); URINE COLOR LIGHT YELLOW (YELLOW)
[2017-06-22 02:22] LABS: URINE BACTERIA MOD (NEG); URINE WBC 0 - 2 /hpf (0-6)
[2017-06-22 07:41] LABS: ALB/GLOB RATIO 1.4 (1.1-1.8); ALKALINE PHOSPHATASE 90 U/L (38-133); ALT/SGPT 115 U/L (7-56); AST/SGOT 58 U/L (15-39); BILIRUBIN,TOTAL 0.5 mg/dL (0.2-1.3); BLOOD UREA NITROGEN 15 mg/dL (7-21); CALCIUM 9.7 mg/dL (8.4-10.5); CARBON DIOXIDE 26 mmol/L (21-33); CHLORIDE 104 mmol/L (98-107); GFR AFRICAN-AMERICAN > 60; GLUCOSE,RANDOM 94 mg/dL (70-110); POTASSIUM 3.9 mmol/L (3.6-5.0); SODIUM 140 mmol/L (132-148)
[2017-06-22 07:46] LABS: HEMATOCRIT 43.1 % (36.0-48.0); MEAN CELL VOLUME 93.3 fl (80.0-105.0); MEAN CORPUSCULAR HGB CONC 34.3 g/dl (31.0-37.0); MEAN PLATELET VOLUME 11.9 fl (7.0-11.0); RED CELL DISTRIBUTION WIDTH 13.3 % (11.5-14.5)
[2017-06-22] MEDS: Pantoprazole 40 mg EC Tab PO SCH (09:58)
[2017-06-22] MEDS: diltiaZEM 300 mg/24 Hours CD Cap PO SCH (09:58)
[2017-06-22] MEDS: Potassium Chloride 20 mEq ER Tab PO SCH (09:58)
--- NOTE | 2017-06-22 16:34 | CON ---
DATE: 06/22/2017 INDICATION: Chest pain, and rapid atrial fibrillation. HISTORY OF PRESENT ILLNESS: This is a 77-year-old woman well known to me, admitted yesterday to the emergency room with palpitations, vague chest discomfort, dizziness, lightheadedness. On arrival, she was found to have atrial fibrillation with rapid ventricular response. She was treated with Cardizem and a ventricular rate slowed. She was admitted to telemetry. This morning on telemetry, she feels better. She has atrial fibrillation with a moderate ventricular response. At this time, there was no chest pain. There was no shortness of breath. She denies orthopnea, PND, syncope, vertigo, edema, fever, chills, cough, sputum production, hemoptysis, abdominal pain, nausea, vomiting, diarrhea, constipation, and melena. PAST MEDICAL HISTORY: Notable for chronic atrial fibrillation. She had [facility] for [facility]. She was placed on Eliquis, Cardizem, and metoprolol. There is a history of hypertension. She is a former smoker. There is history of hyperlipidemia, PAD and oophorectomy, uterine prolapse, remote pneumonia, and echocardiogram during the last admission. Revealed normal LV function with moderate MR and mild TR. There is no history of diabetes, stroke, TIA, or gout. MEDICATIONS: At the time of admission include Diltiazem, Losartan, Eliquis, Lasix, potassium, metoprolol, and Xanax. ALLERGIES: SHE KNOWS ALLERGIES TO SULFA AND CODEINE. SOCIAL HISTORY: She lives alone at home in [place]. She is no longer smokes. She does not drink alcohol except occasionally. She is ambulatory. FAMILY HISTORY: Noncontributory. REVIEW OF SYSTEMS: A 10-point review of systems, otherwise unremarkable except as noted above. PHYSICAL EXAMINATION: GENERAL: She is well-developed elderly woman lying in bed on telemetry in no acute distress. VITAL SIGNS: Reveal atrial fibrillation 96 beats per minute, afebrile. Blood pressure 123/57, respirations 18 to 20, O2 sat 97 to 99% on room air. HEENT: Mucous membranes moist. Conjunctivae pink. NECK: Supple. No neck vein distention, thyromegaly, carotid bruits. LUNGS: Chaney clear. HEART: Revealed normal first and second heart sounds with an irregular rhythm. PMI is not displaced. ABDOMEN: Soft. Bowel sounds are present. No mass, organomegaly, tenderness, rebound, guarding, CVA tenderness, palpable abdominal aortic aneurysm. EXTREMITIES: Revealed no cyanosis, clubbing or edema. NEUROLOGIC: Awake, alert and oriented. SKIN: Warm and dry. No rash or cellulitis. PSYCHIATRIC: Normal as to mood and affect. LABORATORY AND IMAGING DATA: A portable chest x-ray reveals no active disease. EKG demonstrated atrial fibrillation with rapid ventricular response, right ventricular conduction delay, poor R wave progression, nonspecific T wave changes. CBC is unremarkable. PT/INR, PTT unremarkable. Electrolytes; BUN, creatinine, blood sugar, magnesium unremarkable. Mild elevation of LFTs. CK 28. Three troponin less then 0.01. TSH normal. Urinalysis is noted. IMPRESSION: Sandra Miller is a 77-year-old woman with atrial fibrillation, rapid ventricular response. She has chronic atrial fibrillation, has been on medications for this. She experienced some chest pain and lightheadedness. There is no events of acute myocardial infraction by troponin or EKG changes. PLAN: At this time, I agree with current plan. She is on telemetry. I would renew her oral medications including Cardizem CD 300 mg daily, Losartan, Eliquis, metoprolol 100 mg b.i.d. She is also getting Protonix, potassium chloride. She can be out of bed to chair. We will continue monitoring on telemetry. We will adjust medications to better control her ventricular response. She will continue Eliquis for stroke prevention. I will review her old records and prior echocardiogram. Her TSH is normal. I will follow along with you. I will make additional recommendations based to on her clinical course. Antonio Bryson MD [facility]
--- NOTE | 2017-06-22 17:01 | CP.PCM.PN ---
<ARNALDO BAUER - Last Filed: 06/22/17 16:54> Subjective - Date & Time of Evaluation Date of Evaluation: 06/22/17 Time of Evaluation: 16:54 - Subjective Subjective: Medicine Progress Note: Pt seen and examined at bedside. Pt denies any acute overnight events. Pt denies any CP, SOB, n/v/d, abdominal pain, chills, fevers, dysuria, polyuria, tremors, fatigue, BARCENAS, or vertigo. Objective - Vital Signs/Intake and Output Vital Signs (last 24 hours): Temp Pulse Resp BP Pulse Ox 97.4 F L 100 H 18 116/91 H 97 06/22/17 12:00 06/22/17 14:00 06/22/17 12:00 06/22/17 12:00 06/22/17 06:00 Intake and Output: 06/22/17 06/22/17 06:59 18:59 Intake Total 480 Balance 480 - Medications Medications: Current Medications Apixaban (Eliquis) 5 mg PO BID [facility] PRN Reason: Protocol Last Admin: 06/22/17 09:58 Dose: 5 mg Diltiazem HCl (Cardizem Cd) 300 mg PO DAILY [facility] Last Admin: 06/22/17 09:58 Dose: 300 mg Furosemide (Lasix) 40 mg PO DAILY [facility] Last Admin: 06/22/17 09:58 Dose: 40 mg Losartan Potassium (Cozaar) 50 mg PO DAILY [facility] Last Admin: 06/22/17 09:57 Dose: 50 mg Metoprolol Tartrate (Lopressor) 5 mg IVP Q6 PRN PRN Reason: HR >130 , HOLD IF SBP <100 Metoprolol Tartrate (Lopressor) 100 mg PO BRKDIN [facility] Last Admin: 06/22/17 08:26 Dose: 100 mg Pantoprazole Sodium (Protonix Ec Tab) 40 mg PO DAILY [facility] Last Admin: 06/22/17 09:58 Dose: 40 mg Potassium Chloride (K-Dur 20 Meq Er Tab) 20 meq PO DAILY [facility] Last Admin: 06/22/17 09:58 Dose: 20 meq - Labs Labs: 06/22/17 07:15 06/22/17 07:15 PT 12.1 Seconds (9.9-11.8) H 06/21/17 13:05 INR 1.12 (0.93-1.08) H 06/21/17 13:05 APTT 26.9 Seconds (23.7-30.8) 06/21/17 13:05 - Constitutional Appears: No Acute Distress - Head Exam Head Exam: ATRAUMATIC, NORMOCEPHALIC - Eye Exam Eye Exam: EOMI, PERRL - ENT Exam ENT Exam: Mucous Membranes Moist - Neck Exam Neck Exam: Full ROM. absent: Lymphadenopathy, Tenderness, Thyromegaly - Respiratory Exam Respiratory Exam: Clear to Ausculation Bilateral. absent: Rales, Rhonchi, Wheezes - Cardiovascular Exam Cardiovascular Exam: Irregular Rhythm, +S1, +S2. absent: Gallop, Rubs, Murmur - GI/Abdominal Exam GI & Abdominal Exam: Soft. absent: Distended, Guarding, Rigid, Tenderness, Rebound - Extremities Exam Extremities Exam: Normal Inspection - Back Exam Back Exam: NORMAL INSPECTION - Neurological Exam Neurological Exam: Alert, Awake, Oriented x3 - Psychiatric Exam Psychiatric exam: Normal Affect, Normal Mood - Skin Skin Exam: Dry, Intact, Normal Color, Warm Assessment and Plan - Assessment and Plan (Free Text) Assessment: 77 yo F with AFib, HTN, HLD, and PVD will be admitted for evaluation and treatment for atrial fibrillation with RVR. Plan: 1. A-Fib with RVR - Cardio consulted, continue home meds and mointor on telemtery - Troponin negative x3 - TSH normal - Metoprolol 5 mg IVP Q6H PRN for HR>130, hold if SBP<100 - Diltiazem 300 mg PO daily - Metoprolol 100 mg PO daily - Eliquis 5 mg PO BID - Lasix 40 mg PO daily 2. Transaminitis - F/u hep panel - LFTs slightly elevated from yesterday 3. HTN - Losartan 50 mg PO daily - Monitor BP GI/DVT PPx - Protonix - Pt already on Eliquis, which will be sufficient for DVT PPx Pt was seen and discussed in detail with Dr. Vazquez <Thomas Vazquez - Last Filed: 06/22/17 17:09> Objective - Vital Signs/Intake and Output Vital Signs (last 24 hours): Temp Pulse Resp BP Pulse Ox 97.4 F L 100 H 18 116/91 H 97 06/22/17 12:00 06/22/17 14:00 06/22/17 12:00 06/22/17 12:00 06/22/17 06:00 Intake and Output: 06/22/17 06/22/17 06:59 18:59 Intake Total 480 Balance 480 - Medications Medications: Current Medications Apixaban (Eliquis) 5 mg PO BID [facility] PRN Reason: Protocol Last Admin: 06/22/17 09:58 Dose: 5 mg Diltiazem HCl (Cardizem Cd) 300 mg PO DAILY [facility] Last Admin: 06/22/17 09:58 Dose: 300 mg Furosemide (Lasix) 40 mg PO DAILY [facility] Last Admin: 06/22/17 09:58 Dose: 40 mg Losartan Potassium (Cozaar) 50 mg PO DAILY [facility] Last Admin: 06/22/17 09:57 Dose: 50 mg Metoprolol Tartrate (Lopressor) 5 mg IVP Q6 PRN PRN Reason: HR >130 , HOLD IF SBP <100 Metoprolol Tartrate (Lopressor) 100 mg PO BRKDIN [facility] Last Admin: 06/22/17 08:26 Dose: 100 mg Pantoprazole Sodium (Protonix Ec Tab) 40 mg PO DAILY [facility] Last Admin: 06/22/17 09:58 Dose: 40 mg Potassium Chloride (K-Dur 20 Meq Er Tab) 20 meq PO DAILY [facility] Last Admin: 06/22/17 09:58 Dose: 20 meq - Labs Labs: 06/22/17 07:15 06/22/17 07:15 PT 12.1 Seconds (9.9-11.8) H 06/21/17 13:05 INR 1.12 (0.93-1.08) H 06/21/17 13:05 APTT 26.9 Seconds (23.7-30.8) 06/21/17 13:05 Attending/Attestation - Attestation I have personally seen and examined this patient.: Yes I have fully participated in the care of the patient.: Yes I have reviewed all pertinent clinical information, including history, physical exam and plan: Yes Notes (Text): 06/22/17 17:06 77 year old female with past medical history of afib, hypertension and dyslipidemia who presented with complaint of palpitations and chest pain. She was found to have Afib with RVR in the ER which improved after one dose of iv cardizem in the ER. Serial cardiac enzymes are negative and ACS has been ruled out. Overnight she still had episodes to tachycardia with HR ranging from 100-130. She is currently on cardizem and lopressor for rate control and eliquis for anticoagulation. Cardiology evaluation was appreciated who recommended to continue with telemetry monitoring for now for possible adjustment of her medications. LFTs are also mildly elevated which we will monitor closely. Hepatitis panel is pending. At this time she states she feels uncomfortable to go home because of her tachycardia also stating she lives alone and has no ride for today. Will continue current management and follow up with cardiology recommendations. Thomas Vazquez MD Hospitalist.
[2017-06-23 07:42] LABS: HEMATOCRIT 41.9 % (36.0-48.0); MEAN CELL VOLUME 93.5 fl (80.0-105.0); MEAN CORPUSCULAR HEMOGLOBIN 31.5 pg (25.0-35.0); MEAN CORPUSCULAR HGB CONC 33.7 g/dl (31.0-37.0); MEAN PLATELET VOLUME 11.8 fl (7.0-11.0); RED CELL DISTRIBUTION WIDTH 13.3 % (11.5-14.5); WHITE BLOOD COUNT 7.9 10^3/ul (4.5-11.0)
--- NOTE | 2017-06-23 07:49 | CP.PCM.PN ---
Subjective - Date & Time of Evaluation Date of Evaluation: 06/23/17 Time of Evaluation: 07:00 - Subjective Subjective: Stable on 2R. No CP or SOB. Episode of AF with RVR last night. She felt diaphoretic. She was given IV metoprolol and then IV cardizem 20 mg. bolus. She feels well now and the HR is 80. V/S noted. PE: Lungs: clear Cor.: irreg., S1S2 Abd.: soft Ext. no edema Neuro.: alert I/O [id number] Labs 06/22 noted. Objective - Vital Signs/Intake and Output Vital Signs (last 24 hours): Temp Pulse Resp BP Pulse Ox 98.1 F 69 18 109/66 96 06/23/17 06:00 06/23/17 06:00 06/23/17 06:00 06/23/17 06:00 06/23/17 06:00 Intake and Output: 06/23/17 06/23/17 06:59 18:59 Intake Total 300 Output Total 1110 Balance -810 - Medications Medications: Current Medications Apixaban (Eliquis) 5 mg PO BID [facility] PRN Reason: Protocol Last Admin: 06/22/17 17:28 Dose: 5 mg Diltiazem HCl (Cardizem Cd) 300 mg PO DAILY [facility] Last Admin: 06/22/17 09:58 Dose: 300 mg Furosemide (Lasix) 40 mg PO DAILY [facility] Last Admin: 06/22/17 09:58 Dose: 40 mg Losartan Potassium (Cozaar) 50 mg PO DAILY [facility] Last Admin: 06/22/17 09:57 Dose: 50 mg Metoprolol Tartrate (Lopressor) 5 mg IVP Q6 PRN PRN Reason: HR >130 , HOLD IF SBP <100 Last Admin: 06/23/17 01:08 Dose: 5 mg Metoprolol Tartrate (Lopressor) 100 mg PO BRKDIN [facility] Last Admin: 06/22/17 17:27 Dose: 100 mg Pantoprazole Sodium (Protonix Ec Tab) 40 mg PO DAILY [facility] Last Admin: 06/22/17 09:58 Dose: 40 mg Potassium Chloride (K-Dur 20 Meq Er Tab) 20 meq PO DAILY [facility] Last Admin: 06/22/17 09:58 Dose: 20 meq - Labs Labs: PT 12.1 Seconds (9.9-11.8) H 06/21/17 13:05 INR 1.12 (0.93-1.08) H 06/21/17 13:05 APTT 26.9 Seconds (23.7-30.8) 06/21/17 13:05 Assessment and Plan - Assessment and Plan (Free Text) Assessment: Dizziness/Palpitations/CP AF with RVR HBP Former Smoker HLD PAD H/O pneumonia Oophorectomy Uterine Prolapse Echo: Nl LV, Moderate MR and Mild TR Plan: Continue PO metoprolol and diltiazem and Eliquis Add digoxin OOB to chair as emily. Continue tel.
[2017-06-23] MEDS ORDERED: Digoxin 500 mcg/2ml (0.5 mg/2ml) Inj IV ONE ×2 (08:00→14:00)
[2017-06-23 08:03] LABS: ALB/GLOB RATIO 1.4 (1.1-1.8); ALKALINE PHOSPHATASE 80 U/L (38-133); ALT/SGPT 93 U/L (7-56); AST/SGOT 36 U/L (15-39); BILIRUBIN,TOTAL 0.4 mg/dL (0.2-1.3); BLOOD UREA NITROGEN 18 mg/dL (7-21); CALCIUM 9.5 mg/dL (8.4-10.5); CARBON DIOXIDE 24 mmol/L (21-33); CHLORIDE 106 mmol/L (98-107); GFR AFRICAN-AMERICAN > 60; GLUCOSE,RANDOM 104 mg/dL (70-110); POTASSIUM 3.6 mmol/L (3.6-5.0); SODIUM 141 mmol/L (132-148); TOTAL PROTEIN 6.5 g/dL (5.8-8.3)
[2017-06-23] MEDS: diltiaZEM 300 mg/24 Hours CD Cap PO SCH (10:41)
[2017-06-23] MEDS: Potassium Chloride 20 mEq ER Tab PO SCH (10:44)
[2017-06-23] MEDS: Pantoprazole 40 mg EC Tab PO SCH (10:45)
--- NOTE | 2017-06-23 14:25 | CP.PCM.PN ---
<ARNALDO BAUER - Last Filed: 06/23/17 14:22> Subjective - Date & Time of Evaluation Date of Evaluation: 06/23/17 Time of Evaluation: 14:22 - Subjective Subjective: Medicine Progress Note: Pt seen and examined at bedside. Overnight pt went into a-fib, RVR with HR ranging between 100-150. Pt was given diltiazem IVP, which controlled her rate. Pt denies CP, SOB, n/v/d, sweats, fever, chills, abdominal pain, BARCENAS, dizziness, dysuria, or constipation. Objective - Vital Signs/Intake and Output Vital Signs (last 24 hours): Temp Pulse Resp BP Pulse Ox 97.3 F L 60 20 133/73 96 06/23/17 12:00 06/23/17 12:00 06/23/17 12:00 06/23/17 12:00 06/23/17 06:00 Intake and Output: 06/23/17 06/23/17 06:59 18:59 Intake Total 300 Output Total 1110 Balance -810 - Medications Medications: Current Medications Apixaban (Eliquis) 5 mg PO BID [facility] PRN Reason: Protocol Last Admin: 06/23/17 10:44 Dose: 5 mg Digoxin (Lanoxin) 0.125 mg PO 1400 [facility] Diltiazem HCl (Cardizem Cd) 300 mg PO DAILY [facility] Last Admin: 06/23/17 10:41 Dose: 300 mg Furosemide (Lasix) 40 mg PO DAILY [facility] Last Admin: 06/23/17 10:44 Dose: 40 mg Losartan Potassium (Cozaar) 50 mg PO DAILY [facility] Last Admin: 06/23/17 10:43 Dose: 50 mg Metoprolol Tartrate (Lopressor) 5 mg IVP Q6 PRN PRN Reason: HR >130 , HOLD IF SBP <100 Last Admin: 06/23/17 01:08 Dose: 5 mg Metoprolol Tartrate (Lopressor) 100 mg PO BRKDIN [facility] Last Admin: 06/23/17 07:49 Dose: 100 mg Pantoprazole Sodium (Protonix Ec Tab) 40 mg PO DAILY [facility] Last Admin: 06/23/17 10:45 Dose: 40 mg Potassium Chloride (K-Dur 20 Meq Er Tab) 20 meq PO DAILY [facility] Last Admin: 06/23/17 10:44 Dose: 20 meq - Labs Labs: 06/23/17 07:30 06/23/17 07:30 PT 12.1 Seconds (9.9-11.8) H 06/21/17 13:05 INR 1.12 (0.93-1.08) H 06/21/17 13:05 APTT 26.9 Seconds (23.7-30.8) 06/21/17 13:05 - Constitutional Appears: No Acute Distress - Head Exam Head Exam: ATRAUMATIC, NORMOCEPHALIC - Eye Exam Eye Exam: EOMI, PERRL - ENT Exam ENT Exam: Mucous Membranes Moist - Neck Exam Neck Exam: absent: Lymphadenopathy, Tenderness, Thyromegaly - Respiratory Exam Respiratory Exam: Clear to Ausculation Bilateral. absent: Rales, Rhonchi, Wheezes - Cardiovascular Exam Cardiovascular Exam: Irregular Rhythm. absent: Gallop, Rubs, Murmur - GI/Abdominal Exam GI & Abdominal Exam: Soft. absent: Distended, Guarding, Tenderness, Rebound - Extremities Exam Extremities Exam: Normal Inspection - Back Exam Back Exam: NORMAL INSPECTION - Neurological Exam Neurological Exam: Alert, Awake, Oriented x3 - Psychiatric Exam Psychiatric exam: Normal Affect, Normal Mood - Skin Skin Exam: Dry, Intact, Normal Color, Warm Assessment and Plan - Assessment and Plan (Free Text) Assessment: 77 yo F with AFib, HTN, HLD, and PVD will be admitted for evaluation and treatment for atrial fibrillation with RVR. Plan: 1. A-Fib with RVR - A-fib with RVR overnight HR 150's, given diltiazem 20 mg IVP, which controlled rate - BP 90/48 overnight, would avoid IV diltiazem due to risk of hypotension - Cardio consulted, continue PO metoprolol, diltiazem and eliquis. Add digoxin. - Digoxin 0.125 mg PO daily - Metoprolol 5 mg IVP Q6H PRN for HR>130, hold if SBP<100 - Diltiazem 300 mg PO daily - Metoprolol 100 mg PO daily - Eliquis 5 mg PO BID - Lasix 40 mg PO daily - Continue telemetry monitoring - Troponin negative x3 - TSH normal 2. Transaminitis - F/u hep panel - LFTs downtrending 3. HTN - Losartan 50 mg PO daily - Monitor BP GI/DVT PPx - Protonix - Pt already on Eliquis, which will be sufficient for DVT PPx Pt was seen and discussed in detail with Dr. Vazquez. <Thomas Vazquez - Last Filed: 06/23/17 15:16> Objective - Vital Signs/Intake and Output Vital Signs (last 24 hours): Temp Pulse Resp BP Pulse Ox 97.3 F L 79 20 133/73 96 06/23/17 12:00 06/23/17 14:00 06/23/17 12:00 06/23/17 12:00 06/23/17 06:00 Intake and Output: 06/23/17 06/23/17 06:59 18:59 Intake Total 300 Output Total 1110 Balance -810 - Medications Medications: Current Medications Apixaban (Eliquis) 5 mg PO BID [facility] PRN Reason: Protocol Last Admin: 06/23/17 10:44 Dose: 5 mg Digoxin (Lanoxin) 0.125 mg PO 1400 [facility] Diltiazem HCl (Cardizem Cd) 300 mg PO DAILY [facility] Last Admin: 06/23/17 10:41 Dose: 300 mg Furosemide (Lasix) 40 mg PO DAILY [facility] Last Admin: 06/23/17 10:44 Dose: 40 mg Losartan Potassium (Cozaar) 50 mg PO DAILY [facility] Last Admin: 06/23/17 10:43 Dose: 50 mg Metoprolol Tartrate (Lopressor) 5 mg IVP Q6 PRN PRN Reason: HR >130 , HOLD IF SBP <100 Last Admin: 06/23/17 01:08 Dose: 5 mg Metoprolol Tartrate (Lopressor) 100 mg PO BRKDIN [facility] Last Admin: 06/23/17 07:49 Dose: 100 mg Pantoprazole Sodium (Protonix Ec Tab) 40 mg PO DAILY [facility] Last Admin: 06/23/17 10:45 Dose: 40 mg Potassium Chloride (K-Dur 20 Meq Er Tab) 20 meq PO DAILY [facility] Last Admin: 06/23/17 10:44 Dose: 20 meq - Labs Labs: 06/23/17 07:30 06/23/17 07:30 PT 12.1 Seconds (9.9-11.8) H 06/21/17 13:05 INR 1.12 (0.93-1.08) H 06/21/17 13:05 APTT 26.9 Seconds (23.7-30.8) 06/21/17 13:05 Attending/Attestation - Attestation I have personally seen and examined this patient.: Yes I have fully participated in the care of the patient.: Yes I have reviewed all pertinent clinical information, including history, physical exam and plan: Yes Notes (Text): 06/23/17 15:13 77 year old female with past medical history of afib, hypertension and dyslipidemia who presented with complaint of palpitations and chest pain. Serial cardiac enzymes are negative and ACS has been ruled out. Cardiology is following the patient. She is on currently on cardizem and lopressor for rate control and eliquis for anticoagulation. Overnight events reviewed with uncontrolled heart rate. Digoxin was added today. Will monitor. LFTs are also mildly elevated but improving. We will continue to monitor closely. Hepatitis panel is pending. Thomas Vazquez MD Hospitalist.
[2017-06-23] MEDS ORDERED: Phenol Topical 1.4% Throat Spray (180 ml) MT PRN (16:31)
[2017-06-23] MEDS: Benzocaine/Menthol (Cepacol) Lozenge MT PRN ×3 (18:08→23:53)
[2017-06-24] MEDS: Benzocaine/Menthol (Cepacol) Lozenge MT PRN ×3 (02:39→17:17)
--- NOTE | 2017-06-24 07:52 | CP.PCM.PN ---
Subjective - Date & Time of Evaluation Date of Evaluation: 06/24/17 Time of Evaluation: 07:00 - Subjective Subjective: Stable on 2R. No CP or SOB. Brief pisode of AF with RVR last night. She feels well now and the HR is 80. Now complains of cough. V/S noted. PE: Lungs: clear Cor.: irreg., S1S2 Abd.: soft Ext. no edema Neuro.: alert Labs 06/23 noted. Objective - Vital Signs/Intake and Output Vital Signs (last 24 hours): Temp Pulse Resp BP Pulse Ox 98.3 F 87 18 132/65 93 L 06/24/17 06:00 06/24/17 06:00 06/24/17 06:00 06/24/17 06:00 06/24/17 06:00 Intake and Output: 06/24/17 06/24/17 06:59 18:59 Intake Total 380 Balance 380 - Medications Medications: Current Medications Apixaban (Eliquis) 5 mg PO BID [facility] PRN Reason: Protocol Last Admin: 06/23/17 18:07 Dose: 5 mg Benzocaine/Menthol (Cepacol Sore Throat) 1 flako MT Q2H PRN PRN Reason: Sore Throat Last Admin: 06/24/17 02:39 Dose: 1 flako Digoxin (Lanoxin) 0.125 mg PO 1400 [facility] Diltiazem HCl (Cardizem Cd) 300 mg PO DAILY [facility] Last Admin: 06/23/17 10:41 Dose: 300 mg Furosemide (Lasix) 40 mg PO DAILY [facility] Last Admin: 06/23/17 10:44 Dose: 40 mg Losartan Potassium (Cozaar) 50 mg PO DAILY [facility] Last Admin: 06/23/17 10:43 Dose: 50 mg Metoprolol Tartrate (Lopressor) 5 mg IVP Q6 PRN PRN Reason: HR >130 , HOLD IF SBP <100 Last Admin: 06/23/17 01:08 Dose: 5 mg Metoprolol Tartrate (Lopressor) 100 mg PO BRKDIN [facility] Last Admin: 06/23/17 18:07 Dose: 100 mg Pantoprazole Sodium (Protonix Ec Tab) 40 mg PO DAILY [facility] Last Admin: 06/23/17 10:45 Dose: 40 mg Phenol/Menthol (Phenaseptic 1.4% Throat [place]) 0 ml MT Q2H PRN PRN Reason: Sore Throat Potassium Chloride (K-Dur 20 Meq Er Tab) 20 meq PO DAILY [facility] Last Admin: 06/23/17 10:44 Dose: 20 meq - Labs Labs: 06/23/17 07:30 06/23/17 07:30 PT 12.1 Seconds (9.9-11.8) H 06/21/17 13:05 INR 1.12 (0.93-1.08) H 06/21/17 13:05 APTT 26.9 Seconds (23.7-30.8) 06/21/17 13:05 Assessment and Plan - Assessment and Plan (Free Text) Assessment: Dizziness/Palpitations/CP Cough AF with RVR HBP Former Smoker HLD PAD H/O pneumonia Oophorectomy Uterine Prolapse Echo: Nl LV, Moderate MR and Mild TR Plan: Continue PO metoprolol and diltiazem and Eliquis Add digoxin OOB to chair as emily. Continue tel.
[2017-06-24 08:05] LABS: HEMATOCRIT 45.2 % (36.0-48.0); MEAN CELL VOLUME 94.2 fl (80.0-105.0); MEAN CORPUSCULAR HEMOGLOBIN 31.9 pg (25.0-35.0); MEAN CORPUSCULAR HGB CONC 33.8 g/dl (31.0-37.0); MEAN PLATELET VOLUME 11.8 fl (7.0-11.0); RED CELL DISTRIBUTION WIDTH 13.3 % (11.5-14.5); WHITE BLOOD COUNT 8.3 10^3/ul (4.5-11.0)
[2017-06-24 08:17] LABS: ALB/GLOB RATIO 1.4 (1.1-1.8); ALKALINE PHOSPHATASE 100 U/L (38-133); ALT/SGPT 125 U/L (7-56); AST/SGOT 61 U/L (15-39); BILIRUBIN,TOTAL 0.5 mg/dL (0.2-1.3); BLOOD UREA NITROGEN 17 mg/dL (7-21); CALCIUM 9.8 mg/dL (8.4-10.5); CARBON DIOXIDE 26 mmol/L (21-33); CHLORIDE 105 mmol/L (98-107); GFR AFRICAN-AMERICAN > 60; GLUCOSE,RANDOM 118 mg/dL (70-110); SODIUM 145 mmol/L (132-148); TOTAL PROTEIN 7.1 g/dL (5.8-8.3)
[2017-06-24] MEDS: Potassium Chloride 20 mEq ER Tab PO SCH ×2 (09:24→17:09)
[2017-06-24] MEDS: diltiaZEM 300 mg/24 Hours CD Cap PO SCH (09:24)
[2017-06-24] MEDS: Pantoprazole 40 mg EC Tab PO SCH (09:25)
[2017-06-24] MEDS ORDERED: Azithromycin 500MG/NS 250ml 500 MG/250 ML BAG IVPB SCH (12:00)
[2017-06-24] MEDS: cefTRIAXone 1 gm 1 GM/100 ML BAG IVPB SCH (13:03)
--- NOTE | 2017-06-24 13:14 | CP.PCM.PN ---
Subjective - Date & Time of Evaluation Date of Evaluation: 06/24/17 Time of Evaluation: 13:03 - Subjective Subjective: Medicine Progress Note: Pt seen and examined at bedside. Pt states that her sore throat is a little better, but feels like she has more chest congestion. Pt denied CP, SOB, n/v/d, chills, fever, abdominal pain, BARCENAS, dizziness, dysuria, or polyuria. Objective - Vital Signs/Intake and Output Vital Signs (last 24 hours): Temp Pulse Resp BP Pulse Ox 98.2 F 91 H 20 121/76 93 L 06/24/17 12:00 06/24/17 12:00 06/24/17 12:00 06/24/17 12:00 06/24/17 06:00 Intake and Output: 06/24/17 06/24/17 06:59 18:59 Intake Total 380 Balance 380 - Medications Medications: Current Medications Apixaban (Eliquis) 5 mg PO BID [facility] PRN Reason: Protocol Last Admin: 06/24/17 09:24 Dose: 5 mg Atorvastatin Calcium (Lipitor) 10 mg PO DIN [facility] Benzocaine/Menthol (Cepacol Sore Throat) 1 flako MT Q2H PRN PRN Reason: Sore Throat Last Admin: 06/24/17 10:20 Dose: 1 flako Digoxin (Lanoxin) 0.125 mg PO 1400 [facility] Diltiazem HCl (Cardizem Cd) 300 mg PO DAILY [facility] Last Admin: 06/24/17 09:24 Dose: 300 mg Furosemide (Lasix) 40 mg PO DAILY [facility] Last Admin: 06/24/17 09:25 Dose: 40 mg Ceftriaxone Sodium (Rocephin 1 Gram Ivpb) 1 gm in 100 mls @ 100 mls/hr IVPB DAILY [facility] PRN Reason: Protocol Doxycycline Hyclate 100 mg/ (Sodium Chloride) 100 mls @ 100 mls/hr IVPB Q12 [facility] PRN Reason: Protocol Losartan Potassium (Cozaar) 50 mg PO DAILY [facility] Last Admin: 06/24/17 09:25 Dose: 50 mg Metoprolol Tartrate (Lopressor) 5 mg IVP Q6 PRN PRN Reason: HR >130 , HOLD IF SBP <100 Last Admin: 06/23/17 01:08 Dose: 5 mg Metoprolol Tartrate (Lopressor) 100 mg PO BRKDIN [facility] Last Admin: 06/24/17 07:58 Dose: 100 mg Pantoprazole Sodium (Protonix Ec Tab) 40 mg PO DAILY [facility] Last Admin: 06/24/17 09:25 Dose: 40 mg Phenol/Menthol (Phenaseptic 1.4% Throat [place]) 0 ml MT Q2H PRN PRN Reason: Sore Throat Potassium Chloride (K-Dur 20 Meq Er Tab) 20 meq PO BID [facility] Last Admin: 06/24/17 09:24 Dose: 20 meq - Labs Labs: 06/24/17 07:20 06/24/17 07:20 PT 12.1 Seconds (9.9-11.8) H 06/21/17 13:05 INR 1.12 (0.93-1.08) H 06/21/17 13:05 APTT 26.9 Seconds (23.7-30.8) 06/21/17 13:05 - Constitutional Appears: No Acute Distress - Head Exam Head Exam: ATRAUMATIC, NORMOCEPHALIC - Eye Exam Eye Exam: EOMI, PERRL - ENT Exam ENT Exam: Mucous Membranes Moist - Neck Exam Neck Exam: Full ROM. absent: Lymphadenopathy, Tenderness, Thyromegaly - Respiratory Exam Respiratory Exam: Rhonchi. absent: Accessory Muscle Use, Rales, Wheezes, Respiratory Distress - Cardiovascular Exam Cardiovascular Exam: Irregular Rhythm. absent: Gallop, Rubs, Murmur - GI/Abdominal Exam GI & Abdominal Exam: Soft. absent: Distended, Guarding, Tenderness, Organomegaly, Rebound - Extremities Exam Extremities Exam: Normal Inspection - Back Exam Back Exam: NORMAL INSPECTION - Neurological Exam Neurological Exam: Alert, Awake, Oriented x3 - Psychiatric Exam Psychiatric exam: Normal Affect, Normal Mood - Skin Skin Exam: Dry, Intact, Normal Color, Warm Assessment and Plan - Assessment and Plan (Free Text) Assessment: 77 yo F with AFib, HTN, HLD, and PVD will be admitted for evaluation and treatment for atrial fibrillation with RVR. Plan: 1. Atrial fibrillation with RVR - Rapid a-fib overnight, HR 90-150's, no pharmacologic intervention - Cardio consulted, continue PO metoprolol, diltiazem, eliquis, and digoxin. - Digoxin 0.125 mg PO daily - Metoprolol 5 mg IVP Q6H PRN for HR>130, hold if SBP<100 - Diltiazem 300 mg PO daily - Metoprolol 100 mg PO daily - Eliquis 5 mg PO BID - Lasix 40 mg PO daily - Continue telemetry monitoring - Troponin negative x3 - TSH normal 2. Suspected pneumonia - Rhonchi heard at right middle and lower lobes - No SIRS or sepsis as vital signs are stable aside from tachycardia and WBC is normal - F/u CXR official read - Started IV rocephin and doxycycline - Blood cultures x2 - Chloraseptic spray and lozenges for sore throat - No azithromycin as QTc is prolonged 3. Transaminitis - Negative hep panel - AST 61, ALT 125 4. HTN - Losartan 50 mg PO daily - Monitor BP 5. HLD - Lipitor 10 mg PO daily GI/DVT PPx - Protonix - Pt already on Eliquis, which will be sufficient for DVT PPx Pt was seen and discussed in detail with Dr. Jay.
--- NOTE | 2017-06-24 14:01 | RAD ---
HISTORY: adventitious sounds COMPARISON: 06/21/2017. TECHNIQUE: Chest PA and lateral FINDINGS: LUNGS: The right lung is clear. There is probable airspace disease in the left lateral lung base. PLEURA: There is a small left pleural effusion. No large right pleural effusion. No pneumothorax. CARDIOVASCULAR: Normal. OSSEOUS STRUCTURES: No significant abnormalities. VISUALIZED UPPER ABDOMEN: Normal. OTHER FINDINGS: None. IMPRESSION: Small left pleural effusion. Underlying pneumonia cannot be excluded. Follow-up after medical management is recommended to ensure complete resolution.
[2017-06-24] MEDS: Digoxin 125 mcg (0.125 mg) Tab PO SCH (14:44)
[2017-06-25 07:53] LABS: HEMATOCRIT 43.8 % (36.0-48.0); MEAN CELL VOLUME 93.6 fl (80.0-105.0); MEAN CORPUSCULAR HEMOGLOBIN 31.8 pg (25.0-35.0); MEAN PLATELET VOLUME 11.7 fl (7.0-11.0); RED CELL DISTRIBUTION WIDTH 13.5 % (11.5-14.5); WHITE BLOOD COUNT 6.1 10^3/ul (4.5-11.0)
[2017-06-25 07:59] LABS: ALB/GLOB RATIO 1.3 (1.1-1.8); ALKALINE PHOSPHATASE 96 U/L (38-133); ALT/SGPT 108 U/L (7-56); AST/SGOT 47 U/L (15-39); BILIRUBIN,TOTAL 0.4 mg/dL (0.2-1.3); BLOOD UREA NITROGEN 15 mg/dL (7-21); CALCIUM 9.5 mg/dL (8.4-10.5); CARBON DIOXIDE 24 mmol/L (21-33); CHLORIDE 106 mmol/L (98-107); GFR AFRICAN-AMERICAN > 60; GLUCOSE,RANDOM 101 mg/dL (70-110); SODIUM 141 mmol/L (132-148); TOTAL PROTEIN 6.8 g/dL (5.8-8.3)
--- NOTE | 2017-06-25 08:14 | CP.PCM.PN ---
Subjective - Date & Time of Evaluation Date of Evaluation: 06/25/17 Time of Evaluation: 07:00 - Subjective Subjective: Stable on 2R. No CP or SOB. Still some congestion, cough. V/S noted. PE: Lungs: few rhonchi Cor.: irreg., S1S2 Abd.: soft Ext. no edema Neuro.: alert Labs 06/23 noted. CBC today noted. WBC NL. CXR 06/24 noted. "Small left pl. effusion with possible pnemonia". Objective - Vital Signs/Intake and Output Vital Signs (last 24 hours): Temp Pulse Resp BP Pulse Ox 98.1 F 89 19 111/67 94 L 06/25/17 05:55 06/25/17 05:55 06/25/17 05:55 06/25/17 05:55 06/25/17 05:55 Intake and Output: 06/25/17 06/25/17 06:59 18:59 Intake Total 240 Output Total 200 Balance 40 - Medications Medications: Current Medications Alprazolam (Xanax) 0.25 mg PO Q6H PRN; Protocol PRN Reason: Anxiety Stop: 07/01/17 21:46 Last Admin: 06/24/17 23:51 Dose: 0.25 mg Apixaban (Eliquis) 5 mg PO BID [facility] PRN Reason: Protocol Last Admin: 06/24/17 17:09 Dose: 5 mg Atorvastatin Calcium (Lipitor) 10 mg PO DIN [facility] Last Admin: 06/24/17 17:09 Dose: 10 mg Benzocaine/Menthol (Cepacol Sore Throat) 1 flako MT Q2H PRN PRN Reason: Sore Throat Last Admin: 06/24/17 17:17 Dose: 1 flako Digoxin (Lanoxin) 0.125 mg PO 1400 [facility] Last Admin: 06/24/17 14:44 Dose: 0.125 mg Diltiazem HCl (Cardizem Cd) 300 mg PO DAILY [facility] Last Admin: 06/24/17 09:24 Dose: 300 mg Furosemide (Lasix) 40 mg PO DAILY [facility] Last Admin: 06/24/17 09:25 Dose: 40 mg Ceftriaxone Sodium (Rocephin 1 Gram Ivpb) 1 gm in 100 mls @ 100 mls/hr IVPB DAILY [facility] PRN Reason: Protocol Last Admin: 06/24/17 13:03 Dose: 100 mls/hr Doxycycline Hyclate 100 mg/ (Sodium Chloride) 100 mls @ 100 mls/hr IVPB Q12 [facility] PRN Reason: Protocol Last Admin: 06/24/17 21:41 Dose: 100 mls/hr Losartan Potassium (Cozaar) 50 mg PO DAILY [facility] Last Admin: 06/24/17 09:25 Dose: 50 mg Metoprolol Tartrate (Lopressor) 5 mg IVP Q6 PRN PRN Reason: HR >130 , HOLD IF SBP <100 Last Admin: 06/23/17 01:08 Dose: 5 mg Metoprolol Tartrate (Lopressor) 100 mg PO BRKDIN [facility] Last Admin: 06/24/17 17:09 Dose: 100 mg Pantoprazole Sodium (Protonix Ec Tab) 40 mg PO DAILY [facility] Last Admin: 06/24/17 09:25 Dose: 40 mg Phenol/Menthol (Phenaseptic 1.4% Throat [place]) 0 ml MT Q2H PRN PRN Reason: Sore Throat Potassium Chloride (K-Dur 20 Meq Er Tab) 20 meq PO BID [facility] Last Admin: 06/24/17 17:09 Dose: 20 meq - Labs Labs: 06/25/17 07:30 06/25/17 07:30 PT 12.1 Seconds (9.9-11.8) H 06/21/17 13:05 INR 1.12 (0.93-1.08) H 06/21/17 13:05 APTT 26.9 Seconds (23.7-30.8) 06/21/17 13:05 Assessment and Plan - Assessment and Plan (Free Text) Assessment: Dizziness/Palpitations/CP Cough/Possible pneumonia AF with RVR, rate improved now. HBP Former Smoker HLD PAD H/O pneumonia Oophorectomy Uterine Prolapse Echo: Nl LV, Moderate MR and Mild TR Plan: Continue PO metoprolol and diltiazem and Eliquis Continue digoxin. Check level 06/26 AM. OOB to chair as emily. PT/Rehab Efforts. TCU Evaluation.
[2017-06-25 08:21] LABS: CHOLESTEROL 165 mg/dL (130-200)
[2017-06-25] MEDS: Potassium Chloride 20 mEq ER Tab PO SCH ×2 (10:23→17:55)
[2017-06-25] MEDS: cefTRIAXone 1 gm 1 GM/100 ML BAG IVPB SCH (10:25)
[2017-06-25] MEDS: diltiaZEM 300 mg/24 Hours CD Cap PO SCH (10:25)
[2017-06-25] MEDS: Pantoprazole 40 mg EC Tab PO SCH (10:25)
--- NOTE | 2017-06-25 11:15 | CP.PCM.PN ---
<ARNALDO BAUER - Last Filed: 06/25/17 11:09> Subjective - Date & Time of Evaluation Date of Evaluation: 06/25/17 Time of Evaluation: 11:09 - Subjective Subjective: Medicine Progress Note: Pt seen and examined at bedside. Pt states that congestion and sore throat seems to have improved. But now has a cough. Pt states that IV abx stings when infused. Pt denies CP, SOB, n/v/d, abdominal pain, chills, fevers, BARCENAS, dizziness , or dysuria. Objective - Vital Signs/Intake and Output Vital Signs (last 24 hours): Temp Pulse Resp BP Pulse Ox 98.1 F 101 H 19 132/68 94 L 06/25/17 05:55 06/25/17 10:25 06/25/17 05:55 06/25/17 10:25 06/25/17 05:55 Intake and Output: 06/25/17 06/25/17 06:59 18:59 Intake Total 240 Output Total 200 Balance 40 - Medications Medications: Current Medications Alprazolam (Xanax) 0.25 mg PO Q6H PRN; Protocol PRN Reason: Anxiety Stop: 07/01/17 21:46 Last Admin: 06/24/17 23:51 Dose: 0.25 mg Apixaban (Eliquis) 5 mg PO BID [facility] PRN Reason: Protocol Last Admin: 06/25/17 10:25 Dose: 5 mg Benzocaine/Menthol (Cepacol Sore Throat) 1 flako MT Q2H PRN PRN Reason: Sore Throat Last Admin: 06/24/17 17:17 Dose: 1 flako Benzonatate (Tessalon Perles) 100 mg PO TID [facility] Digoxin (Lanoxin) 0.125 mg PO 1400 [facility] Last Admin: 06/24/17 14:44 Dose: 0.125 mg Diltiazem HCl (Cardizem Cd) 300 mg PO DAILY [facility] Last Admin: 06/25/17 10:25 Dose: 300 mg Doxycycline Hyclate (Doryx) 100 mg PO Q12 [facility] PRN Reason: Protocol Furosemide (Lasix) 40 mg PO DAILY [facility] Last Admin: 06/25/17 10:25 Dose: 40 mg Ceftriaxone Sodium (Rocephin 1 Gram Ivpb) 1 gm in 100 mls @ 100 mls/hr IVPB DAILY [facility] PRN Reason: Protocol Last Admin: 06/25/17 10:25 Dose: 100 mls/hr Losartan Potassium (Cozaar) 50 mg PO DAILY [facility] Last Admin: 06/25/17 10:24 Dose: 50 mg Metoprolol Tartrate (Lopressor) 5 mg IVP Q6 PRN PRN Reason: HR >130 , HOLD IF SBP <100 Last Admin: 06/23/17 01:08 Dose: 5 mg Metoprolol Tartrate (Lopressor) 100 mg PO BRKDIN [facility] Last Admin: 06/25/17 08:46 Dose: 100 mg Pantoprazole Sodium (Protonix Ec Tab) 40 mg PO DAILY [facility] Last Admin: 06/25/17 10:25 Dose: 40 mg Phenol/Menthol (Phenaseptic 1.4% Throat [place]) 0 ml MT Q2H PRN PRN Reason: Sore Throat Potassium Chloride (K-Dur 20 Meq Er Tab) 20 meq PO BID [facility] Last Admin: 06/25/17 10:23 Dose: 20 meq - Labs Labs: 06/25/17 07:30 06/25/17 07:30 PT 12.1 Seconds (9.9-11.8) H 06/21/17 13:05 INR 1.12 (0.93-1.08) H 06/21/17 13:05 APTT 26.9 Seconds (23.7-30.8) 06/21/17 13:05 - Constitutional Appears: No Acute Distress - Head Exam Head Exam: ATRAUMATIC, NORMOCEPHALIC - Eye Exam Eye Exam: EOMI, PERRL - ENT Exam ENT Exam: Mucous Membranes Moist - Neck Exam Neck Exam: Full ROM. absent: Lymphadenopathy, Tenderness, Thyromegaly - Respiratory Exam Respiratory Exam: Clear to Ausculation Bilateral. absent: Rales, Rhonchi, Wheezes - Cardiovascular Exam Cardiovascular Exam: RRR. absent: Gallop, Rubs, Murmur - GI/Abdominal Exam GI & Abdominal Exam: Soft. absent: Distended, Guarding, Tenderness, Organomegaly, Rebound - Extremities Exam Extremities Exam: Normal Inspection - Back Exam Back Exam: NORMAL INSPECTION - Neurological Exam Neurological Exam: Alert, Awake, Oriented x3 - Psychiatric Exam Psychiatric exam: Normal Affect, Normal Mood - Skin Skin Exam: Dry, Intact, Normal Color, Warm Assessment and Plan - Assessment and Plan (Free Text) Assessment: 77 yo F with AFib, HTN, HLD, and PVD will be admitted for evaluation and treatment for atrial fibrillation with RVR and URI. Plan: 1. Atrial fibrillation with RVR - HR 70-80's, with HR to 110 once overnight - Cardio consulted, continue PO metoprolol, diltiazem, eliquis, and digoxin - Digoxin level tomorrow - Pt states she does not want to go to TCU - PT consulted - Lasix 40 mg PO daily - Continue telemetry monitoring - Troponin negative x3 - TSH normal 2. Suspected pneumonia - CTAB today, no rhonchi, wheezing, or rales - Start PO doxycycline - Cont IV rocephin - Start Tessalon perles 200 mg TID for cough - F/u Procalcitonin - CXR shows small left pleural effusion. Underlying pneumonia cannot be excluded. - No SIRS or sepsis as vital signs are stable aside from tachycardia and WBC is normal - F/u Blood cultures x2 - Chloraseptic spray and lozenges for sore throat - No azithromycin as QTc is prolonged 3. Transaminitis - Negative hep panel - AST 47, ALT 108 4. HTN - Losartan 50 mg PO daily - Monitor BP 5. H/o HLD - Lipid panel WNL - Stop lipitor as LFT's are mildly elevated GI/DVT PPx - Protonix - Pt already on Eliquis, which will be sufficient for DVT PPx Pt was seen and discussed in detail with Dr. Vazquez. <Thomas Vazquez - Last Filed: 06/25/17 12:19> Objective - Vital Signs/Intake and Output Vital Signs (last 24 hours): Temp Pulse Resp BP Pulse Ox 98.1 F 101 H 19 132/68 94 L 06/25/17 05:55 06/25/17 10:25 06/25/17 05:55 06/25/17 10:25 06/25/17 05:55 Intake and Output: 06/25/17 06/25/17 06:59 18:59 Intake Total 240 Output Total 200 Balance 40 - Medications Medications: Current Medications Alprazolam (Xanax) 0.25 mg PO Q6H PRN; Protocol PRN Reason: Anxiety Stop: 07/01/17 21:46 Last Admin: 08/21/17 23:51 Dose: 0.25 mg Apixaban (Eliquis) 5 mg PO BID [facility] PRN Reason: Protocol Last Admin: 06/25/17 10:25 Dose: 5 mg Benzocaine/Menthol (Cepacol Sore Throat) 1 flako MT Q2H PRN PRN Reason: Sore Throat Last Admin: 06/24/17 17:17 Dose: 1 flako Benzonatate (Tessalon Perles) 200 mg PO TID [facility] Digoxin (Lanoxin) 0.125 mg PO 1400 [facility] Last Admin: 06/24/17 14:44 Dose: 0.125 mg Diltiazem HCl (Cardizem Cd) 300 mg PO DAILY [facility] Last Admin: 06/25/17 10:25 Dose: 300 mg Doxycycline Hyclate (Doryx) 100 mg PO Q12 [facility] PRN Reason: Protocol Furosemide (Lasix) 40 mg PO DAILY [facility] Last Admin: 06/25/17 10:25 Dose: 40 mg Ceftriaxone Sodium (Rocephin 1 Gram Ivpb) 1 gm in 100 mls @ 100 mls/hr IVPB DAILY [facility] PRN Reason: Protocol Last Admin: 06/25/17 10:25 Dose: 100 mls/hr Losartan Potassium (Cozaar) 50 mg PO DAILY [facility] Last Admin: 06/25/17 10:24 Dose: 50 mg Metoprolol Tartrate (Lopressor) 5 mg IVP Q6 PRN PRN Reason: HR >130 , HOLD IF SBP <100 Last Admin: 06/23/17 01:08 Dose: 5 mg Metoprolol Tartrate (Lopressor) 100 mg PO BRKDIN [facility] Last Admin: 06/25/17 08:46 Dose: 100 mg Pantoprazole Sodium (Protonix Ec Tab) 40 mg PO DAILY [facility] Last Admin: 06/25/17 10:25 Dose: 40 mg Phenol/Menthol (Phenaseptic 1.4% Throat [facility]) 0 ml MT Q2H PRN PRN Reason: Sore Throat Potassium Chloride (K-Dur 20 Meq Er Tab) 20 meq PO BID [facility] Last Admin: 06/25/17 10:23 Dose: 20 meq - Labs Labs: 06/25/17 07:30 06/25/17 07:30 PT 12.1 Seconds (9.9-11.8) H 06/21/17 13:05 INR 1.12 (0.93-1.08) H 08/18/17 13:05 APTT 26.9 Seconds (23.7-30.8) 06/21/17 13:05 Attending/Attestation - Attestation I have personally seen and examined this patient.: Yes I have fully participated in the care of the patient.: Yes I have reviewed all pertinent clinical information, including history, physical exam and plan: Yes Notes (Text): 06/25/17 12:15 77 year old female with past medical history of afib, hypertension and dyslipidemia who presented with complaint of palpitations and chest pain. Serial cardiac enzymes are negative and ACS has been ruled out. Cardiology is following the patient. She is on currently on cardizem, digoxin and lopressor for rate control and eliquis for anticoagulation. LFTs are also mildly elevated. We will continue to monitor closely. Hepatitis panel is negative. Lipid panel as reviewed. Will hold her statin for now given mildly elevated LFTs. Counselled on diet modification. Today she still complaints of cough and congestion. CXR reviewed which shows small left pleural effusion; underlying pneumonia cannot be excluded. Continue with cefriaxone and doxycycline. Will add tessalon perles for cough. Procalcitonin level is ordered. PT evaluation is requested. OOB to chair. Thomas Vazquez MD Hospitalist.
[2017-06-25] MEDS: Digoxin 125 mcg (0.125 mg) Tab PO SCH (13:53)
[2017-06-25 13:58] VITALS: PULSE 83
[2017-06-25] MEDS: Benzocaine/Menthol (Cepacol) Lozenge MT PRN ×2 (14:12→20:07)
[2017-06-26 06:16] VITALS: O2SAT 92
[2017-06-26 07:35] LABS: HEMATOCRIT 44.2 % (36.0-48.0); MEAN CELL VOLUME 93.6 fl (80.0-105.0); MEAN CORPUSCULAR HEMOGLOBIN 31.6 pg (25.0-35.0); MEAN CORPUSCULAR HGB CONC 33.7 g/dl (31.0-37.0); MEAN PLATELET VOLUME 11.9 fl (7.0-11.0); RED CELL DISTRIBUTION WIDTH 13.3 % (11.5-14.5); WHITE BLOOD COUNT 6.1 10^3/ul (4.5-11.0)
[2017-06-26 07:46] LABS: ALB/GLOB RATIO 1.3 (1.1-1.8); ALKALINE PHOSPHATASE 97 U/L (38-133); ALT/SGPT 95 U/L (7-56); AST/SGOT 39 U/L (15-39); BILIRUBIN,TOTAL 0.3 mg/dL (0.2-1.3); BLOOD UREA NITROGEN 18 mg/dL (7-21); CALCIUM 9.5 mg/dL (8.4-10.5); CARBON DIOXIDE 27 mmol/L (21-33); CHLORIDE 102 mmol/L (98-107); GFR AFRICAN-AMERICAN > 60; GLUCOSE,RANDOM 99 mg/dL (70-110); POTASSIUM 4.1 mmol/L (3.6-5.0); SODIUM 140 mmol/L (132-148); TOTAL PROTEIN 6.8 g/dL (5.8-8.3)
--- NOTE | 2017-06-26 07:46 | CP.PCM.PN ---
Subjective - Date & Time of Evaluation Date of Evaluation: 06/26/17 Time of Evaluation: 07:00 - Subjective Subjective: Stable on 2R. No CP or SOB. Still some cough. She wants to go home today. V/S noted. AF with mod. VR. PE: Lungs: few rhonchi Cor.: irreg., S1S2 Abd.: soft Ext. no edema Neuro.: alert Labs noted. CBC NL. Proc.= <0.05 BC x2 NG at 24 hrs. CXR 06/24 noted. "Small left pl. effusion with possible pnemonia". Objective - Vital Signs/Intake and Output Vital Signs (last 24 hours): Temp Pulse Resp BP Pulse Ox 98.0 F 62 18 128/84 92 L 06/26/17 06:00 06/26/17 06:00 06/26/17 06:00 06/26/17 06:00 06/26/17 06:00 Intake and Output: 06/26/17 06/26/17 06:59 18:59 Intake Total 840 Output Total 0 Balance 840 - Medications Medications: Current Medications Alprazolam (Xanax) 0.25 mg PO Q6H PRN; Protocol PRN Reason: Anxiety Stop: 07/01/17 21:46 Last Admin: 06/25/17 23:59 Dose: 0.25 mg Apixaban (Eliquis) 5 mg PO BID [facility] PRN Reason: Protocol Last Admin: 06/25/17 18:04 Dose: 5 mg Benzocaine/Menthol (Cepacol Sore Throat) 1 flako MT Q2H PRN PRN Reason: Sore Throat Last Admin: 06/25/17 20:07 Dose: 1 flako Benzonatate (Tessalon Perles) 200 mg PO TID [facility] Last Admin: 06/25/17 17:56 Dose: 200 mg Digoxin (Lanoxin) 0.125 mg PO 1400 [facility] Last Admin: 06/25/17 13:53 Dose: 0.125 mg Diltiazem HCl (Cardizem Cd) 300 mg PO DAILY [facility] Last Admin: 06/25/17 10:25 Dose: 300 mg Doxycycline Hyclate (Doryx) 100 mg PO Q12 [facility] PRN Reason: Protocol Last Admin: 06/25/17 21:29 Dose: 100 mg Furosemide (Lasix) 40 mg PO DAILY [facility] Last Admin: 06/25/17 10:25 Dose: 40 mg Ceftriaxone Sodium (Rocephin 1 Gram Ivpb) 1 gm in 100 mls @ 100 mls/hr IVPB DAILY [facility] PRN Reason: Protocol Last Admin: 06/25/17 10:25 Dose: 100 mls/hr Losartan Potassium (Cozaar) 50 mg PO DAILY [facility] Last Admin: 06/25/17 10:24 Dose: 50 mg Metoprolol Tartrate (Lopressor) 5 mg IVP Q6 PRN PRN Reason: HR >130 , HOLD IF SBP <100 Last Admin: 06/23/17 01:08 Dose: 5 mg Metoprolol Tartrate (Lopressor) 100 mg PO BRKDIN [facility] Last Admin: 06/25/17 17:56 Dose: 100 mg Pantoprazole Sodium (Protonix Ec Tab) 40 mg PO DAILY [facility] Last Admin: 06/25/17 10:25 Dose: 40 mg Phenol/Menthol (Phenaseptic 1.4% Throat [place]) 0 ml MT Q2H PRN PRN Reason: Sore Throat Potassium Chloride (K-Dur 20 Meq Er Tab) 20 meq PO BID [facility] Last Admin: 06/25/17 17:55 Dose: 20 meq - Labs Labs: 06/26/17 06:30 06/25/17 07:30 PT 12.1 Seconds (9.9-11.8) H 06/21/17 13:05 INR 1.12 (0.93-1.08) H 06/21/17 13:05 APTT 26.9 Seconds (23.7-30.8) 06/21/17 13:05 Assessment and Plan - Assessment and Plan (Free Text) Assessment: Dizziness/Palpitations/CP Cough/Possible pneumonia AF with RVR, rate improved now. HBP Former Smoker HLD PAD H/O pneumonia Oophorectomy Uterine Prolapse Abn. LFT's Echo: Nl LV, Moderate MR and Mild TR Plan: Continue PO metoprolol and diltiazem and Eliquis Continue digoxin. Check level today- pending. OOB to chair as emily. PT/Rehab Efforts. Home soon.
[2017-06-26] MEDS: diltiaZEM 300 mg/24 Hours CD Cap PO SCH (09:27)
[2017-06-26] MEDS: Pantoprazole 40 mg EC Tab PO SCH (09:27)
[2017-06-26] MEDS: cefTRIAXone 1 gm 1 GM/100 ML BAG IVPB SCH (09:28)
[2017-06-26] MEDS: Potassium Chloride 20 mEq ER Tab PO SCH (09:28)
--- NOTE | 2017-06-26 11:50 | CP.PCM.DIS ---
<ARNALDO BAUER - Last Filed: 06/26/17 12:04> Provider - Provider Date of Admission: 06/22/17 16:47 Attending physician: Thomas Vazquez MD Primary care physician: Jovi Mays MD Consults: Cardio: Hefferan Time Spent in preparation of Discharge (in minutes): 45 Hospital Course - Lab Results Lab Results: Micro Results 06/24/17 13:45 Blood Blood Culture - Preliminary NO GROWTH AFTER 24 HOURS 06/24/17 13:45 Blood Blood Culture - Preliminary NO GROWTH AFTER 24 HOURS Most Recent Lab Values WBC 6.1 10^3/ul (4.5-11.0) 06/26/17 06:30 RBC 4.72 10^6/uL (3.5-6.1) 06/26/17 06:30 Hgb 14.9 g/dL (12.0-16.0) 06/26/17 06:30 Hct 44.2 % (36.0-48.0) 06/26/17 06:30 MCV 93.6 fl (80.0-105.0) 06/26/17 06:30 MCH 31.6 pg (25.0-35.0) 06/26/17 06:30 MCHC 33.7 g/dl (31.0-37.0) 06/26/17 06:30 RDW 13.3 % (11.5-14.5) 06/26/17 06:30 Plt Count 230 10^3/uL (120.0-450.0) 06/26/17 06:30 MPV 11.9 fl (7.0-11.0) H 06/26/17 06:30 Gran % 56.4 % (50.0-68.0) 06/21/17 13:05 Lymph % (Auto) 33.7 % (22.0-35.0) 06/21/17 13:05 [place] % (Auto) 6.7 % (1.0-6.0) H 06/21/17 13:05 Eos % (Auto) 2.5 % (1.5-5.0) 06/21/17 13:05 Baso % (Auto) 0.7 % (0.0-3.0) 06/21/17 13:05 Gran # 4.12 (1.4-6.5) 06/21/17 13:05 Lymph # 2.5 (1.2-3.4) 06/21/17 13:05 [place] # 0.5 (0.1-0.6) 06/21/17 13:05 Eos # 0.2 (0.0-0.7) 06/21/17 13:05 Baso # 0.05 K/mm3 (0.0-2.0) 06/21/17 13:05 PT 12.1 Seconds (9.9-11.8) H 06/21/17 13:05 INR 1.12 (0.93-1.08) H 06/21/17 13:05 APTT 26.9 Seconds (23.7-30.8) 06/21/17 13:05 Sodium 140 mmol/L (132-148) 06/26/17 06:30 Potassium 4.1 mmol/L (3.6-5.0) 06/26/17 06:30 Chloride 102 mmol/L (98-107) 06/26/17 06:30 Carbon Dioxide 27 mmol/L (21-33) 06/26/17 06:30 Anion Gap 15 (10-20) 06/26/17 06:30 BUN 18 mg/dL (7-21) 06/26/17 06:30 Creatinine 0.8 mg/dL (0.5-1.4) 06/26/17 06:30 Est GFR ( Amer) > 60 06/26/17 06:30 Est GFR (Non-Af Amer) > 60 06/26/17 06:30 Random Glucose 99 mg/dL (70-110) 06/26/17 06:30 Calcium 9.5 mg/dL (8.4-10.5) 06/26/17 06:30 Magnesium 1.9 mg/dL (1.7-2.2) 06/21/17 13:05 Total Bilirubin 0.3 mg/dL (0.2-1.3) 06/26/17 06:30 AST 39 U/L (15-39) 06/26/17 06:30 ALT 95 U/L (7-56) H 06/26/17 06:30 Alkaline Phosphatase 97 U/L (38-133) 06/26/17 06:30 Lactate Dehydrogenase 446 U/L (333-699) 06/21/17 13:05 Total Creatine Kinase 28 U/L (35-230) L 06/21/17 13:05 Troponin I < 0.01 ng/mL 06/22/17 01:20 Total Protein 6.8 g/dL (5.8-8.3) 06/26/17 06:30 Albumin 3.9 g/dL (3.0-4.8) 06/26/17 06:30 Globulin 2.9 gm/dL 06/26/17 06:30 Albumin/Globulin Ratio 1.3 (1.1-1.8) 06/26/17 06:30 Triglycerides 94 mg/dL (35-160) 06/25/17 07:50 Cholesterol 165 mg/dL (130-200) 06/25/17 07:50 LDL Cholesterol Direct 96 mg/dL (0-129) 06/25/17 07:50 HDL Cholesterol 42 mg/dL (29-60) 06/25/17 07:50 Procalcitonin < 0.05 NG/ML (0.19-0.49) L 06/25/17 07:26 TSH 3rd Generation 1.95 mIU/mL (0.46-4.68) 06/21/17 18:32 Urine Color Light yellow (YELLOW) 06/22/17 01:45 Urine Appearance Clear (CLEAR) 06/22/17 01:45 Urine pH 6.0 (4.7-8.0) 06/22/17 01:45 Ur Specific [place] <= 1.005 (1.005-1.035) 06/22/17 01:45 Urine Protein Negative mg/dL (<30 mg/dL) 06/22/17 01:45 Urine Glucose (UA) Negative mg/dL (NEGATIVE) 06/22/17 01:45 Urine Ketones Negative mg/dL (NEGATIVE) 06/22/17 01:45 Urine Blood Trace-intact (NEGATIVE) H 06/22/17 01:45 Urine Nitrate Negative (NEGATIVE) 06/22/17 01:45 Urine Bilirubin Negative (NEGATIVE) 06/22/17 01:45 Urine Urobilinogen 0.2 E.U./dL (<1 E.U./dL) 06/22/17 01:45 Ur Leukocyte Esterase Small Luis Alfredo/uL (NEGATIVE) H 06/22/17 01:45 Urine RBC 10 - 15 /hpf (0-2) 06/22/17 01:45 Urine WBC 0 - 2 /hpf (0-6) 06/22/17 01:45 Ur Epithelial Cells 1 - 3 /hpf (0-5) 06/22/17 01:45 Urine Bacteria Mod (NEG) 06/22/17 01:45 Digoxin 2.2 ng/mL (0.8-2.0) H* 06/26/17 06:30 Hepatitis A IgM Ab Negative (NEGATIVE) 06/21/17 13:30 Hep Bs Antigen Negative (NEGATIVE) 06/21/17 13:30 Hep B Core IgM Ab Negative (NEGATIVE) 06/21/17 13:30 Hepatitis C Antibody Negative (NEGATIVE) 06/21/17 13:30 - Hospital Course Hospital Course: 77 year old female with a known history of afib on Eliquis who reported an onset of dizziness and diaphoresis, as well as a sensation of "vibrations" in her back this morning upon waking up. Patient reported taking her heart rate at home at that time, which was 152, and she subsequently took her usual medications and rested. She reports that when she woke up, her HR was still in the 140's, so she called her retail merchandising manager, Dr. Carroll's office, who advised ED evaluation. Patient states that she now feels well, and no longer feels dizzy or sweaty. Patient additionally reports that last night, she had one episode of mild L sided chest pain radiating to the L arm that lasted for a few seconds and resolved. She also states that she had multiple episodes of diarrhea throughout the night. Patient was also admitted in April 2016 for a similar presentation of atrial fibrillation. She was admitted for the time, had an echocardiogram showing EF 74.3%, and was discharged home with Rx: Cardizem increased from 200 to 300mg, Eliquis, Lasix, Losartan, potassium. In the ED, labs and imaging were obtained. Labs were significant for slight elevation in LFTs and negative troponin x1. EKG showed a-fib with rvr, RAD, RVH , and old septal infarct. CXR was negative. While in the ED pt received Cardizem , with subsequent decrease in heart rate to the 80's, still with atrial fibrillation. Pt was admitted for evaluation and treatment for a-fib with rvr. Troponins were trended and continued to be negative x2. Cardiology was consulted , who recommended the pt be continued on her home Cardizem, Eliquis, and Lopressor. Patient did not complain of palpitations since admission, but has had occasional episodes of tachycardia (120-130's) overnight. Cardiology recommended starting Digoxin 0.125mg. Patient additionally developed symptoms of nasal congestion, sore throat, and cough during her admission, and was treated with chloraseptic spray and lozenges, and Tessalon perles. She had mild rhonchi on examination and had a CXR showing small left pleural effusion, cannot r/o pneumonia, and was treated with Rocephin and Doxycycline. She was also found to be hypoxic (O2=84% on RA), which improved with O2 via NC. Patient now reports improvement of her sore throat and congestion, and has not felt palpitations. Today, pt was seen and examined at bedside. Pt states that sore throat and chest congestion were still present, but improved. Pt denied palpations, CP, SOB, n/v/d, abdominal pain, fever, chills, BARCENAS, dizziness, and diaphoresis. Digoxin level was obtained today and was supratherapeutic (Dig=2.2) . Cardio recommended holding Digoxin for 2 days, and afterwards, taking 1 dose every other day, in which she was given a prescription for. Otherwise, she is cleared for discharge to continue her regular medications. Pt was also given prescriptions for doxycycline PO and tessalon perles for cough. Pt was instructed to follow up with cardiology and her PMD as outpatient within 1 week. Discharge Exam - Head Exam Head Exam: ATRAUMATIC, NORMOCEPHALIC - Eye Exam Eye Exam: EOMI, PERRL - ENT Exam ENT Exam: Mucous Membranes Moist - Neck Exam Neck exam: Full Rom - Respiratory Exam Respiratory Exam: Clear to PA & Lateral. absent: Rales, Rhonchi, Wheezes - Cardiovascular Exam Cardiovascular Exam: Irregular Rhythm, +S1, +S2. absent: Diastolic murmur, Gallop, JVD, Rubs, Systolic Murmur - GI/Abdominal Exam GI & Abdominal Exam: Soft. absent: Distended, Firm, Mass, Organomegaly, Rebound , Rigid, Tenderness - Extremities Exam Extremities exam: normal inspection - Back Exam Back exam: NORMAL INSPECTION - Neurological Exam Neurological exam: Alert, Oriented x3 - Psychiatric Exam Psychiatric exam: Normal Affect, Normal Mood - Skin Skin Exam: Dry, Intact, Normal Color, Warm Discharge Plan - Discharge Medications Prescriptions: Benzonatate [Tessalon Perles] 200 mg PO TID #20 sgl Digoxin [Lanoxin] 0.125 mg PO QOTHERDAY #15 tab Doxycycline Hyclate [Doryx] 100 mg PO Q12 #14 cap - Follow Up Plan Condition: STABLE Disposition: HOME/ ROUTINE Instructions: Atrial Fibrillation (DC), Chest Pain (DC), Palpitations (DC), Heart Healthy Diet (DC), Low Sodium Diet (DC) Additional Instructions: 1. Follow up with Parking Enforcement Officer, Dr. Carroll, within 1 week 2. Follow up with PMD within 1 week 3. Start taking Digoxin on SaturdayJune 28, then take every other day 4. Complete 7 day course of Doxycycline 5. Take Tessalon perles for cough as needed 6. Resume home medications as prescribed 7. Take potassium pill once a day (20 mEq) 8. If condition or symptoms worsen, please return to ED Referrals: Joey Carroll MD [Staff Provider] - Jovi Mays MD [Primary Care Provider] - <Thomas Vazquez - Last Filed: 06/26/17 12:24> Provider - Provider Date of Admission: 06/22/17 16:47 Attending physician: Thomas Vazquez MD Primary care physician: Jovi Mays MD Hospital Course - Lab Results Lab Results: Micro Results 06/24/17 13:45 Blood Blood Culture - Preliminary NO GROWTH AFTER 24 HOURS 06/24/17 13:45 Blood Blood Culture - Preliminary NO GROWTH AFTER 24 HOURS Most Recent Lab Values WBC 6.1 10^3/ul (4.5-11.0) 06/26/17 06:30 RBC 4.72 10^6/uL (3.5-6.1) 06/26/17 06:30 Hgb 14.9 g/dL (12.0-16.0) 06/26/17 06:30 Hct 44.2 % (36.0-48.0) 06/26/17 06:30 MCV 93.6 fl (80.0-105.0) 06/26/17 06:30 MCH 31.6 pg (25.0-35.0) 06/26/17 06:30 MCHC 33.7 g/dl (31.0-37.0) 06/26/17 06:30 RDW 13.3 % (11.5-14.5) 06/26/17 06:30 Plt Count 230 10^3/uL (120.0-450.0) 06/26/17 06:30 MPV 11.9 fl (7.0-11.0) H 06/26/17 06:30 Gran % 56.4 % (50.0-68.0) 06/21/17 13:05 Lymph % (Auto) 33.7 % (22.0-35.0) 06/21/17 13:05 [place] % (Auto) 6.7 % (1.0-6.0) H 06/21/17 13:05 Eos % (Auto) 2.5 % (1.5-5.0) 06/21/17 13:05 Baso % (Auto) 0.7 % (0.0-3.0) 06/21/17 13:05 Gran # 4.12 (1.4-6.5) 06/21/17 13:05 Lymph # 2.5 (1.2-3.4) 06/21/17 13:05 [place] # 0.5 (0.1-0.6) 06/21/17 13:05 Eos # 0.2 (0.0-0.7) 06/21/17 13:05 Baso # 0.05 K/mm3 (0.0-2.0) 06/21/17 13:05 PT 12.1 Seconds (9.9-11.8) H 06/21/17 13:05 INR 1.12 (0.93-1.08) H 06/21/17 13:05 APTT 26.9 Seconds (23.7-30.8) 06/21/17 13:05 Sodium 140 mmol/L (132-148) 06/26/17 06:30 Potassium 4.1 mmol/L (3.6-5.0) 06/26/17 06:30 Chloride 102 mmol/L (98-107) 06/26/17 06:30 Carbon Dioxide 27 mmol/L (21-33) 06/26/17 06:30 Anion Gap 15 (10-20) 06/26/17 06:30 BUN 18 mg/dL (7-21) 06/26/17 06:30 Creatinine 0.8 mg/dL (0.5-1.4) 06/26/17 06:30 Est GFR ( Amer) > 60 06/26/17 06:30 Est GFR (Non-Af Amer) > 60 06/26/17 06:30 Random Glucose 99 mg/dL (70-110) 06/26/17 06:30 Calcium 9.5 mg/dL (8.4-10.5) 06/26/17 06:30 Magnesium 1.9 mg/dL (1.7-2.2) 06/21/17 13:05 Total Bilirubin 0.3 mg/dL (0.2-1.3) 06/26/17 06:30 AST 39 U/L (15-39) 06/26/17 06:30 ALT 95 U/L (7-56) H 06/26/17 06:30 Alkaline Phosphatase 97 U/L (38-133) 06/26/17 06:30 Lactate Dehydrogenase 446 U/L (333-699) 06/21/17 13:05 Total Creatine Kinase 28 U/L (35-230) L 06/21/17 13:05 Troponin I < 0.01 ng/mL 06/22/17 01:20 Total Protein 6.8 g/dL (5.8-8.3) 06/26/17 06:30 Albumin 3.9 g/dL (3.0-4.8) 06/26/17 06:30 Globulin 2.9 gm/dL 06/26/17 06:30 Albumin/Globulin Ratio 1.3 (1.1-1.8) 06/26/17 06:30 Triglycerides 94 mg/dL (35-160) 06/25/17 07:50 Cholesterol 165 mg/dL (130-200) 06/25/17 07:50 LDL Cholesterol Direct 96 mg/dL (0-129) 06/25/17 07:50 HDL Cholesterol 42 mg/dL (29-60) 06/25/17 07:50 Procalcitonin < 0.05 NG/ML (0.19-0.49) L 06/25/17 07:26 TSH 3rd Generation 1.95 mIU/mL (0.46-4.68) 06/21/17 18:32 Urine Color Light yellow (YELLOW) 06/22/17 01:45 Urine Appearance Clear (CLEAR) 06/22/17 01:45 Urine pH 6.0 (4.7-8.0) 06/22/17 01:45 Ur Specific [place] <= 1.005 (1.005-1.035) 06/22/17 01:45 Urine Protein Negative mg/dL (<30 mg/dL) 06/22/17 01:45 Urine Glucose (UA) Negative mg/dL (NEGATIVE) 06/22/17 01:45 Urine Ketones Negative mg/dL (NEGATIVE) 06/22/17 01:45 Urine Blood Trace-intact (NEGATIVE) H 06/22/17 01:45 Urine Nitrate Negative (NEGATIVE) 06/22/17 01:45 Urine Bilirubin Negative (NEGATIVE) 06/22/17 01:45 Urine Urobilinogen 0.2 E.U./dL (<1 E.U./dL) 06/22/17 01:45 Ur Leukocyte Esterase Small Luis Alfredo/uL (NEGATIVE) H 06/22/17 01:45 Urine RBC 10 - 15 /hpf (0-2) 06/22/17 01:45 Urine WBC 0 - 2 /hpf (0-6) 06/22/17 01:45 Ur Epithelial Cells 1 - 3 /hpf (0-5) 06/22/17 01:45 Urine Bacteria Mod (NEG) 06/22/17 01:45 Digoxin 2.2 ng/mL (0.8-2.0) H* 06/26/17 06:30 Hepatitis A IgM Ab Negative (NEGATIVE) 06/21/17 13:30 Hep Bs Antigen Negative (NEGATIVE) 06/21/17 13:30 Hep B Core IgM Ab Negative (NEGATIVE) 06/21/17 13:30 Hepatitis C Antibody Negative (NEGATIVE) 06/21/17 13:30 Attending/Attestation - Attestation I have personally seen and examined this patient.: Yes I have fully participated in the care of the patient.: Yes I have reviewed all pertinent clinical information, including history, physical exam and plan: Yes Notes (Text): 06/26/17 12:19 77 year old female with past medical history of afib, hypertension and dyslipidemia who presented with complaint of palpitations and chest pain. Serial cardiac enzymes were negative and ACS was ruled out. She was on cardizem , digoxin and lopressor for rate control and eliquis for anticoagulation. She was being followed by cardiology. Her heart rate has been better controlled for the past few days. Digoxin level today is 2.2. Case was discussed with Dr. Bryson who recommended to hold digoxin for 2 days and resume every other day starting this Saturday. LFTs were mildly elevated. Hepatitis panel is negative. CXR reviewed which shows small left pleural effusion; underlying pneumonia cannot be excluded. Symptoms improved with cough medicine and antibiotics. Overall patient's symptoms have improved. She will be discharged home today to follow up with pmd. Follow up with cardiology to monitor digoxin level. Resume home medications and take digoxin every other day starting this Saturday. Monitor LFTs closely as outpatient with pmd. Thomas Vazquez MD Hospitalist.
[2017-06-26 12:44] VITALS: BP 132/84; PULSE 71; RESP 20; TEMP 97.4
== END 2017-06-26 14:25 | disposition home or self-care (01) | DRG 308 ==
LOC: ED 12:47 → ERH 13:46 → 2RSO 15:10 → OBSVTOIN 06-22 16:47
PROVIDERS: ADMIT Internal Medicine; ATTEND Internal Medicine
DX: I48.2 Chronic atrial fibrillation (principal); J18.9 Pneumonia, unspecified organism; J90 Pleural effusion, not elsewhere classified; I11.0 Hypertensive heart disease with heart failure; I50.9 Heart failure, unspecified; E78.5 Hyperlipidemia, unspecified; I73.9 Peripheral vascular disease, unspecified; N81.4 Uterovaginal prolapse, unspecified; R09.02 Hypoxemia; Z87.01 Personal history of pneumonia (recurrent); Z87.891 Personal history of nicotine dependence; E21.3 Hyperparathyroidism, unspecified; Z87.19 Personal history of other diseases of the digestive system; Z88.5 Allergy status to narcotic agent; Z88.2 Allergy status to sulfonamides; R00.0 Tachycardia, unspecified; R40.2412 Glasgow coma scale score 13-15, at arrival to emergency department; Z90.721 Acquired absence of ovaries, unilateral; R42 Dizziness and giddiness; R07.9 Chest pain, unspecified; R74.0 Nonspecific elevation of levels of transaminase and lactic acid dehydrogenase [LDH]; J02.9 Acute pharyngitis, unspecified

== ENCOUNTER 2019-01-20 08:39 | Outpatient (CLI) | payer MEDICARE | END 2019-01-20 08:40 | disposition home or self-care (01) | LOC: LAB 08:39 ==